=== PATIENT | male | born 1950 | race Caucasian/White ===

== ENCOUNTER → 2017-11-01 | Outpatient (CLI) | payer MEDICARE, OTHER ==
--- NOTE | 2017-11-02 07:52 | XR ---
Lumbosacral spine HISTORY: Low back pain 5 views of the lumbosacral spine No comparison There is multilevel spondylosis. Lumbar vertebral bodies show preserved height and alignment, there i s no evident paraspinal mass. There is loss of disc height at the intervertebral levels. Anterolisthe sis grade 1 present L5-S1. Sclerosis present in the posterior elements of the lumbar spine compatible with facet arthropathy. Suspect spondylolysis at L5. Atherosclerotic vascular calcifications present within the aortoiliac distribution. IMPRESSION: Degenerative disc disease and facet arthropathy. Spondylolysis and spondylolisthesis L5-S 1. Lumbar MRI may be of benefit.
== END | disposition home or self-care (01) ==
LOC: RADXRMAIN 13:51
PROVIDERS: ATTEND Nurse Practitioner Family
DX: M51.37 Other intervertebral disc degeneration, lumbosacral region (principal); M46.87 Other specified inflammatory spondylopathies, lumbosacral region; M43.17 Spondylolisthesis, lumbosacral region; M47.817 Spondylosis without myelopathy or radiculopathy, lumbosacral region; M54.41 Lumbago with sciatica, right side
CPT/HCPCS: 72110

== ENCOUNTER 2019-03-13 07:33 | Day surgery (SDC) | payer MEDICARE, OTHER ==
[2019-03-11 08:57] VITALS: BMI 29.1
[~2019-03-13 07:33] MED LIST: LACTATED RINGERS 1,000 ML IV SCH; LIDOCAINE 1% 20 ML VIAL (10MG/ML) FOR IV START INTRADERMA PRN; MOXIFLOXACIN HCL 0.5% DROPS 3 ML BTL OP ONE; ONDANSETRON 4 MG/2 ML VIAL IVP PRN; TETRACAINE 0.5% OPHTH (PF) DROPS 4 ML BTL OP ONE; TIMOLOL 0.5% OPHTH DROPS 5 ML BTL OP ONE
[2019-03-13] MEDS: CYCLOPENTOLATE 1% OPHTH SOLN 2 ML BTL OP ONE ×3 (08:19→08:33)
[2019-03-13] MEDS: PHENYLEPHRINE 2.5% OPHTH DRP 2ML OP NR ×3 (08:22→08:36)
[2019-03-13 08:23] VITALS: TEMP 97
[2019-03-13 08:46] LABS: Glucose,Whole Blood 125 mg/dL (75-99)
[2019-03-13] MEDS ORDERED: MIDAZOLAM 2 MG/2 ML VIAL ONE (09:07)
[2019-03-13] MEDS ORDERED: fentaNYL (PF) 50 MCG/ML 2 ML AMP ONE (09:07)
[2019-03-13] MEDS ORDERED: LIDOCAINE 1% (PF) 10MG/ML VIAL SQ ONE (09:08)
[2019-03-13] MEDS ORDERED: HYALURONATE SODIUM INTRAOCULAR 1 EACH SYRINGE (12MG/ML) INTRAOCULA ONE (09:08)
[2019-03-13] MEDS ORDERED: BALANCED SALT IRRIG SOLN COMB2 15 ML IRRIG.SOLN IRRIGATION ONE (09:08)
[2019-03-13] MEDS ORDERED: EPINEPHrine (PF) 0.3 ML in BALANCED SALT IRRIG SOLN COMB2 500 ML IRRIGATION ONE (09:15)
--- NOTE | 2019-03-13 09:30 | P.OP ---
Date of Procedure: 03/13/19 Preoperative Diagnosis: NS & CS & PSC Postoperative Diagnosis: same Procedure(s) Performed: PIOL, OD Implants: PCB00 17.00 Anesthesia: MAC Surgeon: Ronald Pizano Estimated Blood Loss (ml): 0 Pathology: none sent Condition: stable Disposition: same day Indications for Procedure: blurry vision Operative Findings: no complications
[2019-03-13 10:04] VITALS: BP 134/84; PULSE 52; RESP 14
--- NOTE | 2019-03-13 23:22 | OP ---
OPERATIVE REPORT DATE OF SURGERY: 03/13/2019. PROCEDURE: Phacoemulsification of cataract and intraocular lens implant of the right eye. PREOPERATIVE DIAGNOSIS: Nuclear sclerosis, cortical sclerosis, posterior subcapsular cataract. ESTIMATED BLOOD LOSS: Zero. SPECIMEN TAKEN: None. NARRATIVE: After obtaining the appropriate consent, the patient was brought to the operating room, where the patient was placed under cardiac monitoring and prepped and draped in the usual sterile manner. At the 11 o'clock position a 15-degree super sharp blade was used to create a paracentesis followed by instillation of 1% Xylocaine MPF 50:50 mix with BSS into the anterior chamber. This was followed by Amvisc to stabilize the anterior chamber. At the 9 o'clock position a self-sealing corneal flap incision was created using a 2.8 mm jordyn keratome. A cystotome was used to initiate a continuous tear capsulorrhexis which was completed with the Utrata forceps. A Binkhorst cannula was used to hydrodissect the lens nucleus followed by hydrodelineation. Phacoemulsification of the lens was performed utilizing phaco chop in 20.03 seconds at 16% power. The remaining cortical material was removed using the irrigation aspiration mode followed by additional 1% Xylocaine MPF into the anterior chamber followed by viscoelastic to stabilize the capsular bag. An ALIN PCB00 17.0 diopters posterior chamber lens was placed into the capsular bag without difficulty. The remaining viscoelastic material was removed from the anterior chamber with the irrigation/aspiration. Balanced salt solution was used to normalize the intraocular pressure. The incision was checked for watertight integrity. The patient then received two drops of 0.5% timolol followed by two drops Vigamox, was lightly patched and shielded in the usual manner. There were no complications from the procedure. The patient tolerated the procedure well and was returned to recovery in good condition. MMODL / IJN: [id number] /
== END 2019-03-13 10:15 | disposition home or self-care (01) ==
LOC: OR 07:33
PROVIDERS: ATTEND Ophthalmology
DX: E11.36 Type 2 diabetes mellitus with diabetic cataract (principal); H25.813 Combined forms of age-related cataract, bilateral; E11.319 Type 2 diabetes mellitus with unspecified diabetic retinopathy without macular edema; H35.371 Puckering of macula, right eye; H35.341 Macular cyst, hole, or pseudohole, right eye; H52.13 Myopia, bilateral; I10 Essential (primary) hypertension; H91.90 Unspecified hearing loss, unspecified ear; Z98.890 Other specified postprocedural states; Z79.899 Other long term (current) drug therapy; Z79.84 Long term (current) use of oral hypoglycemic drugs; Z87.891 Personal history of nicotine dependence; Z97.3 Presence of spectacles and contact lenses; Z85.828 Personal history of other malignant neoplasm of skin; Z97.2 Presence of dental prosthetic device (complete) (partial)
CPT/HCPCS: 66984; C1780; J2250; J0171; J3010; J2001

== ENCOUNTER 2019-03-27 06:03 | Day surgery (SDC) | payer MEDICARE, OTHER ==
[2019-03-25 10:43] VITALS: BMI 29.1
[~2019-03-27 06:03] MED LIST changes: -ONDANSETRON 4 MG/2 ML VIAL IVP PRN
[2019-03-27 06:46] VITALS: RESP 16; TEMP 98.2
[2019-03-27] MEDS: PHENYLEPHRINE 2.5% OPHTH DRP 2ML OP NR ×3 (06:50→07:08)
[2019-03-27] MEDS: CYCLOPENTOLATE 1% OPHTH SOLN 2 ML BTL OP ONE ×3 (06:52→07:10)
[2019-03-27 07:05] LABS: Glucose,Whole Blood 123 mg/dL (75-99)
[2019-03-27] MEDS ORDERED: HYALURONATE SODIUM INTRAOCULAR 1 EACH SYRINGE (12MG/ML) INTRAOCULA ONE (07:24)
[2019-03-27] MEDS ORDERED: BALANCED SALT IRRIG SOLN COMB2 15 ML IRRIG.SOLN IRRIGATION ONE (07:24)
[2019-03-27] MEDS ORDERED: LIDOCAINE 1% (PF) 10MG/ML VIAL SQ ONE (07:24)
[2019-03-27] MEDS ORDERED: MIDAZOLAM 2 MG/2 ML VIAL ONE (07:33)
[2019-03-27] MEDS ORDERED: fentaNYL (PF) 50 MCG/ML 2 ML AMP ONE (07:33)
[2019-03-27] MEDS ORDERED: EPINEPHrine (PF) 0.3 ML in BALANCED SALT IRRIG SOLN COMB2 500 ML IRRIGATION ONE (07:40)
--- NOTE | 2019-03-27 07:59 | P.OP ---
Date of Procedure: 03/27/19 Preoperative Diagnosis: NS & CS & PSC Postoperative Diagnosis: same Procedure(s) Performed: PIOL, OS Implants: PCB00 15.50 Anesthesia: MAC Surgeon: Ronald Pizano Estimated Blood Loss (ml): 0 Pathology: none sent Condition: stable Disposition: same day Indications for Procedure: blurry vision Operative Findings: no complications
[2019-03-27 08:03] VITALS: BP 133/77; PULSE 59
--- NOTE | 2019-03-27 17:48 | OP ---
OPERATIVE REPORT DATE OF SURGERY: 03/27/2019 PREOPERATIVE DIAGNOSIS: Nuclear sclerosis, cortical sclerosis, posterior subcapsular cataract, left eye. POSTOPERATIVE DIAGNOSIS: Nuclear sclerosis, cortical sclerosis, posterior subcapsular cataract, left eye. OPERATION: Phacoemulsification of cataract and intraocular implant of the left eye. ESTIMATED BLOOD LOSS: Zero. SPECIMEN TAKEN: None. NARRATIVE: After obtaining the appropriate consent, the patient was brought to the operating room, where the patient was placed under cardiac monitoring and prepped and draped in the usual sterile manner. At the 5 o'clock position a 15-degree super sharp blade was used to create a paracentesis followed by instillation of 1% Xylocaine MPF 50:50 mix with BSS into the anterior chamber. This was followed by Amvisc to stabilize the anterior chamber. At the 3 o'clock position a self-sealing corneal flap incision was created using 2.8 mm jordyn keratome. A cystotome was used to initiate a continuous tear capsulorrhexis which was completed with the Utrata forceps. A Binkhorst cannula was used to hydrodissect the lens nucleus followed by hydrodelineation. Phacoemulsification of the lens was performed utilizing phaco chop in 10.72 seconds at 13% power. The remaining cortical material was removed using the irrigation aspiration mode followed by additional 1% Xylocaine MPF into the anterior chamber followed by viscoelastic to stabilize the capsular bag. A Pedro & Pedro KLQ4329.5 diopter posterior chamber lens was placed into the capsular bag without difficulty. The remaining viscoelastic material was removed from the anterior chamber with the irrigation/aspiration. Balanced salt solution was used to normalize the intraocular pressure. The incision was checked for watertight integrity. The patient then received two drops of 0.5% timolol followed by two drops Vigamox, was lightly patched and shielded in the usual manner. There were no complications from the procedure. The patient tolerated the procedure well and was returned to recovery in good condition. MMODL / IJN: [id number] /
== END 2019-03-27 08:31 | disposition home or self-care (01) ==
LOC: OR 06:03
PROVIDERS: ATTEND Ophthalmology
DX: H25.12 Age-related nuclear cataract, left eye (principal); H25.012 Cortical age-related cataract, left eye; H35.371 Puckering of macula, right eye; H35.341 Macular cyst, hole, or pseudohole, right eye; H52.13 Myopia, bilateral; H25.042 Posterior subcapsular polar age-related cataract, left eye; H91.90 Unspecified hearing loss, unspecified ear; I10 Essential (primary) hypertension; E11.9 Type 2 diabetes mellitus without complications; Z98.890 Other specified postprocedural states; Z79.84 Long term (current) use of oral hypoglycemic drugs; Z79.899 Other long term (current) drug therapy; Z87.891 Personal history of nicotine dependence; Z97.3 Presence of spectacles and contact lenses; Z96.1 Presence of intraocular lens; Z98.41 Cataract extraction status, right eye
CPT/HCPCS: 66984; C1780; J2250; J0171; J3010; J2001

== ENCOUNTER → 2020-11-13 | Outpatient (CLI) | payer MEDICARE ==
--- NOTE | 2020-11-16 04:03 | US ---
EXAMINATION TYPE: US carotid duplex BILAT DATE OF EXAM: 11/13/2020 COMPARISON: NONE CLINICAL HISTORY: 70-year-old male I65.21 Stenosis R carotid E78.00 Pure hypercholesteremia,. TECHNIQUE: Carotid duplex ultrasound examination. Indirect Doppler criteria was utilized. FINDINGS: EXAM MEASUREMENTS: RIGHT: Peak Systolic Velocity (PSV) cm/sec ----- Right CCA: 99.7 ----- Right ICA: 92.4 ----- Right ECA: 11.3 ICA/CCA ratio: 0.9 RIGHT: End Diastole cm/sec ----- Right CCA: 24.1 ----- Right ICA: 25.6 ----- Right ECA: 16.9 LEFT: Peak Systolic Velocity (PSV) cm/sec ----- Left CCA: 91.0 ----- Left ICA: 80.8 ----- Left ECA: 93.9 ICA/CCA ratio: 0.9 LEFT: End Diastole cm/sec ----- Left CCA: 27.0 ----- Left ICA: 18.3 ----- Left ECA: 0.9 VERTEBRALS (direction of flow): Right Vertebral: Antegrade Left Vertebral: Antegrade No significant stenosis seen IMPRESSION: No hemodynamically significant internal carotid artery stenosis on either side. Criteria for Assigning % of Stenosis / Diameter reduction (Estimation based on the indirect measurements of the internal carotid artery velocities (ICA PSV). 1. Normal (no stenosis)=ICA PSV < 125 cm/s: ratio < 2.0: ICA EDV<40 cm/s. 2. Less than 50% stenosis=ICA PSV < 125 cm/s: ratio < 2.0: ICA EDV<40 cm/s. 3. 50 to 69% stenosis=ICA PSV of 125 to 230 cm/s: ration 2.0 ? 4.0: ICA EDV 40-100 cm/s. 4. Greater than 70% stenosis to near occlusion= ICA PSV > 230 cm/s: ratio > 4.0: ICA EDV > 100 cm/s. 5. Near occlusion= ICA PSV velocities may be low or undetectable: variable ratio and ICA EDV. 6. Total occlusion=unable to detect flow.
== END | disposition home or self-care (01) ==
LOC: RADUSWWP 15:30
PROVIDERS: ATTEND Family Medicine
DX: I65.21 Occlusion and stenosis of right carotid artery (principal); E78.00 Pure hypercholesterolemia, unspecified; E11.9 Type 2 diabetes mellitus without complications; Z79.899 Other long term (current) drug therapy
CPT/HCPCS: 93880

== ENCOUNTER → 2022-03-23 | Outpatient (CLI) | payer MEDICARE ==
--- NOTE | 2022-03-23 08:40 | US ---
EXAMINATION TYPE: US duplex aorta DATE OF EXAM: 03/23/2022 COMPARISON: NONE CLINICAL HISTORY: Z13.6 ENCOUNTER FOR SCREENING FOR CARDIOVASCULAR D. TECHNIQUE: Multiple sonographic images of the abdominal aorta are obtained. FINDINGS: EXAM MEASUREMENTS: Abdominal Aorta: Proximal: 2.7 x 2.8cm Mid: 1.9 x 2.1cm Distal: 1.8 x 1.7cm Right Iliac: 1.0 x 1.2cm Left Iliac: 1.0 x 1.1cm Ectatic proximal aorta. Mild atherosclerotic calcification of the aorta. IMPRESSION: Ectasia of the proximal abdominal aorta measuring up to 2.8 cm. No abdominal aortic aneurysm.
== END | disposition home or self-care (01) ==
LOC: RADUSWWP 08:10
PROVIDERS: ATTEND Family Medicine
DX: Z13.6 Encounter for screening for cardiovascular disorders (principal); I77.811 Abdominal aortic ectasia
CPT/HCPCS: 93979

== ENCOUNTER 2023-03-15 11:53 | Inpatient (IN) | payer MEDICARE ==
[2023-03-15] MEDS ORDERED: SODIUM CHLORIDE 0.9% 500 ML 500 ML IV SCH (12:30)
--- NOTE | 2023-03-15 12:41 | ED ---
General Adult HPI - General Chief complaint: Recheck/Abnormal Lab/Rx Stated complaint: abn EKG Time Seen by Provider: 03/15/23 12:00 Source: patient, RN notes reviewed, old records reviewed Mode of arrival: ambulatory - History of Present Illness Initial comments: This is a 72-year-old male with a past medical history significant for high cholesterol high blood pressure and diabetes. Patient went in for his regular physical and was found to have heart rate dipping into the 30s in though he remains asymptomatic patient to the emergency department. Patient denies chest pain patient denies difficulty breathing shortness of breath per patient denies any recent fever chills or cough per patient denies any abdominal pain patient denies nausea vomiting diarrhea per patient denies any lightheadedness dizziness or near syncopal episode. Patient does any numbness or weakness. Patient states he has not felt that all tired and fatigued. - Related Data Home Medications Medication Instructions Recorded Confirmed Glucos Sul 2Kcl/MSM/Chond/C/Mn 1 each PO BID 03/11/19 03/27/19 [Glucosamine Chondroitin Cap] Losartan [Cozaar] 50 mg PO DAILY 03/11/19 03/27/19 Magnesium Oxide [Mag-Ox] 250 mg PO DAILY 03/11/19 03/27/19 Niacin [Niaspan] 500 mg PO DAILY 03/11/19 03/27/19 [place]-3 Fatty Acids [[place]-3] 1,000 mg PO DAILY 03/11/19 03/27/19 Sildenafil Citrate [Viagra] 50 mg PO ONCE PRN 03/11/19 03/27/19 Simvastatin [Zocor] 40 mg PO HS 03/11/19 03/27/19 metFORMIN HCL [Glucophage] 500 mg PO BID 03/11/19 03/27/19 Allergies Allergy/AdvReac Type Severity Reaction Status Date / Time No Known Allergies Allergy Verified 03/15/23 12:16 Review of Systems ROS Statement: Those systems with pertinent positive or pertinent negative responses have been documented in the HPI. ROS Other: All systems not noted in ROS Statement are negative. Past Medical History Past Medical History: Cancer, Diabetes Mellitus, Eye Disorder, Hypertension, Osteoarthritis (OA) Additional Past Medical History / Comment(s): hx. skin cancer, cataracts History of Any Multi-Drug Resistant Organisms: None Reported Past Surgical History: Hernia Repair, Orthopedic Surgery Additional Past Surgical History / Comment(s): knee surg. as a teen, arthroscopy right knee, retinal surg., rt cataract Past Anesthesia/Blood Transfusion Reactions: No Reported Reaction Past Psychological History: No Psychological Hx Reported Smoking Status: Former smoker Past Alcohol Use History: Occasional Past Drug Use History: None Reported - Past Family History Mother Family Medical History: No Reported History General Exam - General Exam Comments Initial Comments: GENERAL: Patient is well-developed and well-nourished. Patient is nontoxic and well- hydrated and is in no acute distress. ENT: Neck is soft and supple. No significant lymphadenopathy is noted. Oropharynx is clear. Moist mucous membranes. Neck has full range of motion without eliciting any pain. EYES: The sclera were anicteric and conjunctiva were pink and moist. Extraocular movements were intact and pupils were equal round and reactive to light. Eyelids were unremarkable. PULMONARY: Unlabored respirations. Good breath sounds bilaterally. No audible rales rhonchi or wheezing was noted. CARDIOVASCULAR: Patient is bradycardic at heart rate of 40 beats a minute ABDOMEN: Soft and nontender with normal bowel sounds. SKIN: Skin is clear with no lesions or rashes and otherwise unremarkable. NEUROLOGIC: Patient is alert and oriented x3. Cranial nerves II through XII are grossly intact. Motor and sensory are also intact. Normal speech, volume and content. Symmetrical smile. MUSCULOSKELETAL: Normal extremities with adequate strength and full range of motion. No lower extremity swelling or edema. No calf tenderness. LYMPHATICS: No significant lymphadenopathy is noted PSYCHIATRIC: Normal psychiatric evaluation. Course Vital Signs 03/15/23 12:12 Temperature 98 F Pulse Rate 40 L Respiratory 18 Rate Blood Pressure 189/81 O2 Sat by Pulse 98 Oximetry Medical Decision Making - Medical Decision Making EKG as interpreted by myself. EKG shows a sinus bradycardia at 38 bpm RI interval is 283 QRS is 106 QT intervals 45 QTC is 45 per patient's EKG shows no ST segment elevation or depression. Was pt. sent in by a medical professional or institution (, [facility], [facility], urgent care, hospital, or snf...) When possible be specific @ -Primary medical care doctor sent the patient Did you speak to anyone other than the patient for history (EMS, parent, family, police, friend...)? What history was obtained from this source @ -No Did you review nursing and triage notes (agree or disagree)? Why? @ -I reviewed and agree with nursing and triage notes Were old charts reviewed (outside hosp., previous admission, EMS record, old EKG, old radiological studies, urgent care reports/EKG's, snf records)? Report findings @ -I reviewed prior lab work in prior charts Differential Diagnosis (chest pain, altered mental status, abdominal pain women, abdominal pain men, vaginal bleeding, weakness, fever, dyspnea, syncope, headache, dizziness, GI bleed, back pain, seizure, CVA, palpatations, mental health, musculoskeletal)? @ -Differential Palpitations Ventricular arrhythmias, atrial arrhythmias, myocardial infarction, anemia, thyrotoxicosis, electrolyte imbalance, hypokalemia, pulmonary embolism, pulmonary disease, drugs, alcohol, anxiety, stress.... This is not meant to be an all-inclusive list. EKG interpreted by me (3pts min.). @ -As above X-rays interpreted by me (1pt min.). @ -Chest x-ray shows no acute abnormality CT interpreted by me (1pt min.). @ -None done U/S interpreted by me (1pt. min.). @ -None done What testing was considered but not performed or refused? (CT, X-rays, U/S, labs)? Why? @ -None What meds were considered but not given or refused? Why? @ -None Did you discuss the management of the patient with other professionals (professionals i.e. , PA, [facility], lab, RT, psych nurse, social sciences professor, product marketing specialist, teacher, ground intelligence officer, classification case manager)? Give summary @ -I spoke with progression he accepted the admission Was smoking cessation discussed for >3mins.? @ -No Was critical care preformed (if so, how long)? @ -No Were there social determinants of health that impacted care today? How? (Homelessness, low income, unemployed, alcoholism, drug addiction, transportation, low edu. Level, literacy, decrease access to med. care, [facility], rehab)? @ -No Was there de-escalation of care discussed even if they declined (Discuss DNR or withdrawal of care, Hospice)? DNR status @ -No What co-morbidities impacted this encounter? (DM, HTN, Smoking, COPD, CAD, Cancer, CVA, ARF, Chemo, Hep., AIDS, mental health diagnosis, sleep apnea, morbid obesity)? @ -None Was patient admitted / discharged? Hospital course, mention meds given and route, prescriptions, significant lab abnormalities, going to OR and other pertinent info. @ -Bradycardia on EKG. Patient's lab work came back within normal range patient remained asymptomatic. I spoke with Dr. Garcia agreed to admit the patient I will write admitting orders and consult cardiology Undiagnosed new problem with uncertain prognosis? @ -No Drug Therapy requiring intensive monitoring for toxicity (Heparin, Nitro, Insulin, Cardizem)? @ -No Were any procedures done? @ -No Diagnosis/symptom? @ -Sinus bradycardia Acute, or Chronic, or Acute on Chronic? @ -Acute Uncomplicated (without systemic symptoms) or Complicated (systemic symptoms)? @ -Complicated Side effects of treatment? @ -No Exacerbation, Progression, or Severe Exacerbation? @ -No Poses a threat to life or bodily function? How? (Chest pain, [place], AR, pneumonia, PE, COPD, DKA, ARF, appy, cholecystitis, CVA, Diverticulitis, Homicidal, Suicidal, threat to staff... and all critical care pts) @ -Yes this could lead to poor perfusion and and organ dysfunction - Lab Data Result diagrams: 03/15/23 12:45 03/15/23 12:45 Lab Results 03/15/23 03/15/23 03/15/23 Range/Units 12:45 12:45 12:45 WBC 8.3 (3.8-10.6) k/uL RBC 5.53 (4.30-5.90) m/uL Hgb 16.3 (13.0-17.5) gm/dL Hct 49.9 (39.0-53.0) % MCV 90.3 (80.0-100.0) fL MCH 29.5 (25.0-35.0) pg MCHC 32.6 (31.0-37.0) g/dL RDW 13.2 (11.5-15.5) % Plt Count 240 (150-450) k/uL MPV 8.2 Neutrophils % 63 % Lymphocytes % 27 % Monocytes % 6 % Eosinophils % 2 % Basophils % 1 % Neutrophils # 5.2 (1.3-7.7) k/uL Lymphocytes # 2.3 (1.0-4.8) k/uL Monocytes # 0.5 (0-1.0) k/uL Eosinophils # 0.1 (0-0.7) k/uL Basophils # 0.1 (0-0.2) k/uL PT 9.5 (9.0-12.0) sec INR 0.9 (<1.2) APTT 22.3 (22.0-30.0) sec Sodium (137-145) mmol/L Potassium (3.5-5.1) mmol/L Chloride (98-107) mmol/L Carbon Dioxide (22-30) mmol/L Anion Gap mmol/L BUN (9-20) mg/dL Creatinine (0.66-1.25) mg/dL Est GFR (CKD-EPI)AfAm (>60 ml/min/1.73 sqM) Est GFR (CKD-EPI)NonAf (>60 ml/min/1.73 sqM) Glucose (74-99) mg/dL Calcium (8.4-10.2) mg/dL Magnesium (1.6-2.3) mg/dL Total Bilirubin (0.2-1.3) mg/dL AST (17-59) U/L ALT (4-49) U/L Alkaline Phosphatase (38-126) U/L Troponin I (0.000-0.034) ng/mL Total Protein (6.3-8.2) g/dL Albumin (3.5-5.0) g/dL TSH (0.465-4.680) mIU/L Coronavirus (PCR) Not Detected (Not Detectd) 03/15/23 03/15/23 Range/Units 12:45 12:45 WBC (3.8-10.6) k/uL RBC (4.30-5.90) m/uL Hgb (13.0-17.5) gm/dL Hct (39.0-53.0) % MCV (80.0-100.0) fL MCH (25.0-35.0) pg MCHC (31.0-37.0) g/dL RDW (11.5-15.5) % Plt Count (150-450) k/uL MPV Neutrophils % % Lymphocytes % % Monocytes % % Eosinophils % % Basophils % % Neutrophils # (1.3-7.7) k/uL Lymphocytes # (1.0-4.8) k/uL Monocytes # (0-1.0) k/uL Eosinophils # (0-0.7) k/uL Basophils # (0-0.2) k/uL PT (9.0-12.0) sec INR (<1.2) APTT (22.0-30.0) sec Sodium 139 (137-145) mmol/L Potassium 4.8 (3.5-5.1) mmol/L Chloride 103 (98-107) mmol/L Carbon Dioxide 25 (22-30) mmol/L Anion Gap 11 mmol/L BUN 15 (9-20) mg/dL Creatinine 1.06 (0.66-1.25) mg/dL Est GFR (CKD-EPI)AfAm 80 (>60 ml/min/1.73 sqM) Est GFR (CKD-EPI)NonAf 69 (>60 ml/min/1.73 sqM) Glucose 115 H (74-99) mg/dL Calcium 9.5 (8.4-10.2) mg/dL Magnesium 1.9 (1.6-2.3) mg/dL Total Bilirubin 0.6 (0.2-1.3) mg/dL AST 31 (17-59) U/L ALT 30 (4-49) U/L Alkaline Phosphatase 77 (38-126) U/L Troponin I 0.012 (0.000-0.034) ng/mL Total Protein 7.1 (6.3-8.2) g/dL Albumin 4.3 (3.5-5.0) g/dL TSH 1.730 (0.465-4.680) mIU/L Coronavirus (PCR) (Not Detectd) Disposition Clinical Impression: Sinus bradycardia Disposition: ADMITTED IP TO THIS [facility] Time of Disposition: 13:58
[2023-03-15 13:08] LABS: Basophils # (A) 0.1 k/uL (0-0.2); Basophils % (A) 1 %; Eosinophils # (A) 0.1 k/uL (0-0.7); Eosinophils % (A) 2 %; HCT 49.9 % (39.0-53.0); HGB 16.3 gm/dL (13.0-17.5); Lymphocytes # (A) 2.3 k/uL (1.0-4.8); Lymphocytes % (A) 27 %; MCH 29.5 pg (25.0-35.0); MCHC 32.6 g/dL (31.0-37.0); MCV 90.3 fL (80.0-100.0); Mean Platelet Volume 8.2; Monocytes # (A) 0.5 k/uL (0-1.0); Monocytes % (A) 6 %; Neutrophils # (A) 5.2 k/uL (1.3-7.7); Neutrophils % (A) 63 %; Platelet Count 240 k/uL (150-450); RBC 5.53 m/uL (4.30-5.90); RDW 13.2 % (11.5-15.5); WBC 8.3 k/uL (3.8-10.6)
[2023-03-15 13:14] LABS: ALT 30 U/L (4-49); AST 31 U/L (17-59); African American GFR (CKD) 80 (>60 ml/min/1.73 sqM); Albumin 4.3 g/dL (3.5-5.0); Alkaline Phosphatase 77 U/L (38-126); Anion Gap 11 mmol/L; Blood Urea Nitrogen 15 mg/dL (9-20); Calcium 9.5 mg/dL (8.4-10.2); Carbon Dioxide 25 mmol/L (22-30); Chloride 103 mmol/L (98-107); Glucose 115 mg/dL (74-99); Magnesium 1.9 mg/dL (1.6-2.3); Non-African American GFR(CKD) 69 (>60 ml/min/1.73 sqM); Potassium 4.8 mmol/L (3.5-5.1); Sodium 139 mmol/L (137-145); Total Bilirubin 0.6 mg/dL (0.2-1.3); Total Protein 7.1 g/dL (6.3-8.2)
--- NOTE | 2023-03-15 13:25 | XR ---
EXAMINATION TYPE: XR chest 2V DATE OF EXAM: 03/15/2023 COMPARISON: NONE TECHNIQUE: PA and lateral views submitted. HISTORY: Dysrhythmia FINDINGS: The lungs are clear and there is no pneumothorax, pleural effusion, or focal pneumonia. Heart size normal and no overt failure. Osseous structures demonstrate hypertrophic and degenerative changes of the spine. A tiny granuloma left upper lobe suspected. Diffuse osteopenia with arthropathy of the miriam ulders. Correlate for diffuse idiopathic skeletal hyperostosis. IMPRESSION: 1. No acute process.
[2023-03-15 13:36] LABS: INR 0.9 (<1.2); Partial Thromboplastin Time 22.3 sec (22.0-30.0); Prothrombin Time 9.5 sec (9.0-12.0)
[2023-03-15] MEDS ORDERED: NITROGLYCERIN SL TABS 0.4 MG TAB SUBLINGUAL PRN (13:58)
[2023-03-15] MEDS ORDERED: DEXTROSE 50% SYRINGE 50 ML IVP PRN ×2 (16:38)
[2023-03-15 17:02] LABS: Glucose,Whole Blood 108 mg/dL (70-110)
[2023-03-15] MEDS: INSULIN ASPART (NovoLOG) 100 UNIT/ML VIAL SQ SCH (17:15)
--- NOTE | 2023-03-15 17:52 | P.CRDCN ---
History of Present Illness Consult date: 03/15/23 History of present illness: HISTORY OF PRESENTING ILLNESS 72-year-old with past medical history of type 2 diabetes, essential hypertension, dyslipidemia. He was being evaluated at his primary care physician's office as a routine appointment when he was noticed to have his heart rate running in the low 30s. For this he was asked to come to the hospital. On evaluating him at bedside, patient denies having any symptoms of chest pain chest pressure or shortness of breath. He denies any symptoms of reduction is excess capacity or any symptoms of lightheadedness or dizziness. He denies any symptoms of near syncope or had any syncopal episodes. DIAGNOSTICS EKG reveals sinus bradycardia with Mobitz type I second degree AV block. Chest xray: No significant acute cardiopulmonary process going on Laboratory reviewed, hemoglobin 16.3, BUN 15, creatinine 1.06, troponin 2 negative Home cardiac medications include atorvastatin and losartan. REVIEW OF SYSTEMS 14 point review of system is negative except what is mentioned above in HPI. PHYSICAL EXAMINATION Vital signs reviewed. Head: Normocephalic. Eyes: Sclerae nonicteric. Neck: Brisk carotid upstroke, no jugular venous distention. Lungs: Clear to auscultation. Heart: irregular rhythm, S1-S2, no S3, no murmur or rub. Abdomen: Soft nontender, positive bowel sounds no organomegaly. Extremities: No edema, intact distal pulses. ASSESSMENT Mobitz type I second-degree AV block, asymptomatic Essential hypertension, poorly controlled Dyslipidemia Obesity Type 2 diabetes PLAN On ECG and telemetry reviewed it is appendectomy patient is an Mobitz type I b lock and he has been asymptomatic. He would benefit from getting chronotropic competence evaluation and to see if with exercises AV block results. He would also benefit from better blood pressure control, Start amlodipine 5 mg. Continue losartan 50, aspirin and atorvastatin Obtain an echocardiogram Obtain treadmill stress echo Past Medical History Past Medical History: Cancer, Diabetes Mellitus, Eye Disorder, Hypertension, Osteoarthritis (OA) Additional Past Medical History / Comment(s): hx. skin cancer, cataracts History of Any Multi-Drug Resistant Organisms: None Reported Past Surgical History: Hernia Repair, Orthopedic Surgery Additional Past Surgical History / Comment(s): knee surg. as a teen, arthroscopy right knee, retinal surg., rt cataract Past Anesthesia/Blood Transfusion Reactions: No Reported Reaction Past Psychological History: No Psychological Hx Reported Smoking Status: Former smoker Past Alcohol Use History: Occasional Past Drug Use History: None Reported - Past Family History Mother Family Medical History: No Reported History Medications and Allergies Home Medications Medication Instructions Recorded Confirmed Type Glucos Sul 2Kcl/MSM/Chond/C/Mn 1 cap PO BID 03/11/19 03/15/23 History [Glucosamine Chondroitin Cap] Losartan [Cozaar] 50 mg PO HS 03/11/19 03/15/23 History [place]-3 Fatty Acids [[place]-3] 1,000 mg PO DAILY 03/11/19 03/15/23 History Simvastatin [Zocor] 40 mg PO HS 03/11/19 03/15/23 History Berberine 600 mg PO DAILY 03/15/23 03/15/23 History Magnesium Citrate Gummies 600 mg PO HS 03/15/23 03/15/23 History Multivit-Mins/Iron/Folic/Lycop 1 tab PO DAILY 03/15/23 03/15/23 History [Centrum Men's Tablet] Senior Probiotic 1 tab PO HS 03/15/23 03/15/23 History Sildenafil Citrate [Viagra] 100 mg PO DAILY PRN 03/15/23 03/15/23 History metFORMIN HCL ER [Glucophage XR] 500 mg PO HS 03/15/23 03/15/23 History Allergies Allergy/AdvReac Type Severity Reaction Status Date / Time No Known Allergies Allergy Verified 03/15/23 14:30 Physical Exam Vitals: Vital Signs Temp Pulse Resp BP Pulse Ox 03/15/23 12:12 98 F 40 L 18 189/81 98 Intake and Output 03/15/23 03/15/23 03/15/23 06:59 14:59 22:59 Other: Weight 107.048 kg Results 03/15/23 12:45 03/15/23 12:45 Cardiac Enzymes 03/15/23 03/15/23 03/15/23 Range/Units 12:45 12:45 14:34 AST 31 (17-59) U/L Troponin I 0.012 0.014 (0.000-0.034) ng/mL Coagulation 03/15/23 Range/Units 12:45 PT 9.5 (9.0-12.0) sec APTT 22.3 (22.0-30.0) sec CBC 03/15/23 Range/Units 12:45 WBC 8.3 (3.8-10.6) k/uL RBC 5.53 (4.30-5.90) m/uL Hgb 16.3 (13.0-17.5) gm/dL Hct 49.9 (39.0-53.0) % Plt Count 240 (150-450) k/uL Comprehensive Metabolic Panel 03/15/23 Range/Units 12:45 Sodium 139 (137-145) mmol/L Potassium 4.8 (3.5-5.1) mmol/L Chloride 103 (98-107) mmol/L Carbon Dioxide 25 (22-30) mmol/L BUN 15 (9-20) mg/dL Creatinine 1.06 (0.66-1.25) mg/dL Glucose 115 H (74-99) mg/dL Calcium 9.5 (8.4-10.2) mg/dL AST 31 (17-59) U/L ALT 30 (4-49) U/L Alkaline Phosphatase 77 (38-126) U/L Total Protein 7.1 (6.3-8.2) g/dL Albumin 4.3 (3.5-5.0) g/dL Current Medications Generic Name Dose Route Start Last Admin Trade Name Freq PRN Reason Stop Dose Admin Amlodipine Besylate 5 mg 03/15/23 17:45 Amlodipine 5 Mg Tab PO DAILY [facility] Aspirin 81 mg 03/16/23 09:00 Aspirin 81 Mg PO DAILY [facility] Atorvastatin Calcium 20 mg 03/15/23 21:00 Atorvastatin 20 Mg Tab PO HS [facility] Dextrose/Water 25 ml 03/15/23 16:38 Dextrose 50% Syringe 50 Ml IVP PER PROTOCOL PRN Hypoglycemia Protocol Dextrose/Water 50 ml 03/15/23 16:38 Dextrose 50% Syringe 50 Ml IVP PER PROTOCOL PRN Hypoglycemia Protocol Insulin Aspart 0 unit 03/15/23 17:30 03/15/23 17:15 Insulin Aspart (Novolog) 100 Unit/Ml Vial SQ Not Given AC-TID [facility] Protocol Losartan Potassium 50 mg 03/15/23 21:00 Losartan 50 Mg Tab PO HS [facility] Metformin HCl 250 mg 03/15/23 21:00 Metformin 500 Mg Tab PO BID [facility] Multivitamins 1 each 03/16/23 09:00 Multivitamins, Thera 1 Each Tab PO DAILY [facility] Nitroglycerin 0.4 mg 03/15/23 13:58 Nitroglycerin Sl Tabs 0.4 Mg Tab SUBLINGUAL Q5M PRN Chest Pain Intake and Output 03/15/23 03/15/23 03/15/23 06:59 14:59 22:59 Other: Weight 107.048 kg Patient Weight 03/16/23 06:59 Weight 107.048 kg 03/15/23 12:45 03/15/23 12:45
--- NOTE | 2023-03-15 18:18 | P.HPIM ---
History of Present Illness H&P Date: 03/15/23 Chief Complaint: Low heart rate This is a pleasant 72-year-old patient who follows with Dr. Trejo. Chronic stable medical conditions include diabetes mellitus type 2, hypertension, skin cancer. That was removed. Patient went for his regular physical checkup. He was discovered to have a low heart rate. Sent in to the ER. Found a variable block. Patient denies any chest pain palpitation dizziness lightheadedness shortness of breath or tiredness. Cardiology consulted. Review of systems: GEN.: None EYES: None HEENT: None NECK: None RESPIRATORY: None CARDIOVASCULAR: None GASTROINTESTINAL: None GENITOURINARY: None MUSCULOSKELETAL: None LYMPHATICS: None HEMATOLOGICAL: None PSYCHIATRY: None NEUROLOGICAL: None Social history: Patient smoked one pack or weak for about 20 years stopped about 35 years ago. 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 . Physical examination: VITAL SIGNS: 98, 14, 18, 180/81, 98% room air GENERAL: BMI 32, declining a bit of a comfortable. EYES: Pupils equal. Conjunctiva normal. HEENT: External appearance of nose and ears normal, oral cavity grossly normal. NECK: JVD not raised; masses not palpable. HEART: First and second heart sounds are normal; no edema. LUNGS: Respiratory rate normal; clear to auscultation. ABDOMEN: Soft, nontender, liver spleen not palpable, no masses palpable. PSYCH: Alert and oriented x3; mood and affect normal. MUSCULOSKELETAL:No Clubbing/cyanosis;muscles-grossly intact NEUROLOGICAL: Cranial nerves grossly intact; no facial asymmetry, power and sensation grossly intact. LYMPHATICS: No lymph nodes palpable in the axilla and neck INVESTIGATIONS, reviewed in the clinical context: White count 8.3 hemoglobin 16.3 platelets 240 sodium 139 potassium 4.8 creatinine 1.06 Troponin I 0.012, 0.014 TSH 1.7 EKG tracing personally reviewed by [id number] AV block. Chest x-ray film personally reviewed by me-borderline cardiomegaly Assessment and plan: -Essential hypertension, uncontrolled Amlodipine 5 mg added. Continue losartan. -Second-degree AV block, asymptomatic Stress test in the morning. -Diabetes mellitus type 2 on oral hypoglycemic Glucophage XL. Follow Accu-Cheks and sliding scale -Hyperlipidemia Zocor 40 mg daily at bedtime Care was discussed the patient and . Question also. Stress test tomorrow morning per cardiology. Past Medical History Past Medical History: Cancer, Diabetes Mellitus, Eye Disorder, Hypertension, Osteoarthritis (OA) Additional Past Medical History / Comment(s): hx. skin cancer, cataracts History of Any Multi-Drug Resistant Organisms: None Reported Past Surgical History: Hernia Repair, Orthopedic Surgery Additional Past Surgical History / Comment(s): knee surg. as a teen, arthroscopy right knee, retinal surg., rt cataract Past Anesthesia/Blood Transfusion Reactions: No Reported Reaction Past Psychological History: No Psychological Hx Reported Smoking Status: Former smoker Past Alcohol Use History: Occasional Past Drug Use History: None Reported - Past Family History Mother Family Medical History: No Reported History Medications and Allergies Home Medications Medication Instructions Recorded Confirmed Type Glucos Sul 2Kcl/MSM/Chond/C/Mn 1 cap PO BID 03/11/19 03/15/23 History [Glucosamine Chondroitin Cap] Losartan [Cozaar] 50 mg PO HS 03/11/19 03/15/23 History [place]-3 Fatty Acids [[place]-3] 1,000 mg PO DAILY 03/11/19 03/15/23 History Simvastatin [Zocor] 40 mg PO HS 03/11/19 03/15/23 History Berberine 600 mg PO DAILY 03/15/23 03/15/23 History Magnesium Citrate Gummies 600 mg PO HS 03/15/23 03/15/23 History Multivit-Mins/Iron/Folic/Lycop 1 tab PO DAILY 03/15/23 03/15/23 History [Centrum Men's Tablet] Senior Probiotic 1 tab PO HS 03/15/23 03/15/23 History Sildenafil Citrate [Viagra] 100 mg PO DAILY PRN 03/15/23 03/15/23 History metFORMIN HCL ER [Glucophage XR] 500 mg PO HS 03/15/23 03/15/23 History Allergies Allergy/AdvReac Type Severity Reaction Status Date / Time No Known Allergies Allergy Verified 03/15/23 14:30 Physical Exam Vitals: Vital Signs Temp Pulse Resp BP Pulse Ox 03/15/23 12:12 98 F 40 L 18 189/81 98 Intake and Output 03/15/23 03/15/23 03/15/23 06:59 14:59 22:59 Other: Weight 107.048 kg Results CBC & Chem 7: 03/15/23 12:45 03/15/23 12:45 Labs: Abnormal Lab Results - Last 24 Hours (Table) 03/15/23 Range/Units 12:45 Glucose 115 H (74-99) mg/dL
[2023-03-15] MEDS: amLODIPine 5 MG TAB PO SCH (18:39)
[2023-03-15] MEDS: LOSARTAN 50 MG TAB PO SCH (20:44)
[2023-03-15] MEDS: ATORVASTATIN 20 MG TAB PO SCH (20:44)
[2023-03-15] MEDS: metFORMIN 500 MG TAB PO SCH (20:44)
--- NOTE | 2023-03-16 07:35 | P.PN ---
Subjective Progress Note Date: 03/16/23 HISTORY OF PRESENTING ILLNESS 72-year-old with past medical history of type 2 diabetes, essential hypertension, dyslipidemia. He was being evaluated at his primary care physician's office as a routine appointment when he was noticed to have his heart rate running in the low 30s. For this he was asked to come to the hospital. On evaluating him at bedside, patient denies having any symptoms of chest pain chest pressure or shortness of breath. He denies any symptoms of reduction is excess capacity or any symptoms of lightheadedness or dizziness. He denies any symptoms of near syncope or had any syncopal episodes. DIAGNOSTICS EKG reveals sinus bradycardia with Mobitz type I second degree AV block. Chest xray: No significant acute cardiopulmonary process going on Laboratory reviewed, hemoglobin 16.3, BUN 15, creatinine 1.06, troponin 2 nega tive Home cardiac medications include atorvastatin and losartan. Progress note 03/16/2023 Seen and examined at bedside the same. Denies any cardiac symptoms. Overnight continues to be in sinus rhythm. Telemetry shows Mobitz type I Wenckebach phenomena. PHYSICAL EXAMINATION Vital signs reviewed. Head: Normocephalic. Eyes: Sclerae nonicteric. Neck: Brisk carotid upstroke, no jugular venous distention. Lungs: Clear to auscultation. Heart: irregular rhythm, S1-S2, no S3, no murmur or rub. Abdomen: Soft nontender, positive bowel sounds no organomegaly. Extremities: No edema, intact distal pulses. ASSESSMENT Mobitz type I second-degree AV block, asymptomatic Essential hypertension, poorly controlled Dyslipidemia Obesity Type 2 diabetes PLAN On ECG and telemetry reviewed it is appendectomy patient is an Mobitz type I block and he has been asymptomatic. He would benefit from getting chronotropic competence evaluation and to see if with exercises AV block results. He would also benefit from better blood pressure control, Start amlodipine 5 mg. Continue losartan 50, aspirin and atorvastatin Obtain an echocardiogram Obtain treadmill stress echo Objective - Vital Signs Vital signs: Vital Signs Temp 98.1 F 03/16/23 05:59 Pulse 42 L 03/16/23 05:59 Resp 16 03/16/23 05:59 BP 159/88 03/16/23 05:59 Pulse Ox 95 03/16/23 05:59 FiO2 Intake & Output 03/15/23 03/16/23 03/16/23 18:59 06:59 18:59 Weight 107.048 kg - Labs CBC & Chem 7: 03/15/23 12:45 03/15/23 12:45 Labs: Abnormal Lab Results - Last 24 Hours (Table) 03/15/23 Range/Units 12:45 Glucose 115 H (74-99) mg/dL
[2023-03-16 08:20] LABS: Glucose,Whole Blood 131 mg/dL (70-110)
[2023-03-16] MEDS: INSULIN ASPART (NovoLOG) 100 UNIT/ML VIAL SQ SCH ×3 (08:20→16:55)
[2023-03-16] MEDS: ASPIRIN 81 MG PO SCH (08:40)
[2023-03-16] MEDS: amLODIPine 5 MG TAB PO SCH (08:41)
[2023-03-16] MEDS: metFORMIN 500 MG TAB PO SCH ×2 (08:41→20:25)
[2023-03-16] MEDS: MULTIVITAMINS, THERA 1 EACH TAB PO SCH (08:41)
[2023-03-16] MEDS ORDERED: ASPIRIN 325 MG TAB PO SCH (09:00)
[2023-03-16 09:05] LABS: Chol/HDL Ratio 2.83 Ratio; LDL Cholesterol,Calculated 71.6 mg/dL (0.0-131.0)
[2023-03-16 12:06] LABS: Glucose,Whole Blood 150 mg/dL (70-110)
[2023-03-16 16:31] LABS: Glucose,Whole Blood 125 mg/dL (70-110)
--- NOTE | 2023-03-16 18:56 | P.PN ---
Progress Note - Text Progress Note Date: 03/16/23 Chief Complaint: Low heart rate This is a pleasant 72-year-old patient who follows with Dr. Trejo. Chronic stable medical conditions include diabetes mellitus type 2, hypertension, skin cancer. That was removed. Patient went for his regular physical checkup. He was discovered to have a low heart rate. Sent in to the ER. Found a variable block. Patient denies any chest pain palpitation dizziness lightheadedness shortness of breath or tiredness. Cardiology consulted. March 16: Comfortable. Mobitz type 1/2 second-degree AV block. Remains asymptomatic. Patient did undergo 2-D echocardiogram and a stress echocardiogram. Results pending. Active Medications Amlodipine Besylate (Amlodipine 5 Mg Tab) 5 mg PO DAILY [facility] Last Admin: 03/16/23 08:41 Dose: 5 mg Aspirin (Aspirin 81 Mg) 81 mg PO DAILY [facility] Last Admin: 03/16/23 08:40 Dose: Not Given Atorvastatin Calcium (Atorvastatin 20 Mg Tab) 20 mg PO HS [facility] Last Admin: 03/15/23 20:44 Dose: 20 mg Dextrose/Water (Dextrose 50% Syringe 50 Ml) 25 ml IVP PER PROTOCOL PRN; Protocol PRN Reason: Hypoglycemia Dextrose/Water (Dextrose 50% Syringe 50 Ml) 50 ml IVP PER PROTOCOL PRN; Protocol PRN Reason: Hypoglycemia Insulin Aspart (Insulin Aspart (Novolog) 100 Unit/Ml Vial) 0 unit SQ AC-TID [facility]; Protocol Last Admin: 03/16/23 16:55 Dose: Not Given Losartan Potassium (Losartan 50 Mg Tab) 50 mg PO HS [facility] Last Admin: 03/15/23 20:44 Dose: 50 mg Metformin HCl (Metformin 500 Mg Tab) 250 mg PO BID [facility] Last Admin: 03/16/23 08:41 Dose: 250 mg Multivitamins (Multivitamins, Thera 1 Each Tab) 1 each PO DAILY [facility] Last Admin: 03/16/23 08:41 Dose: 1 each Nitroglycerin (Nitroglycerin Sl Tabs 0.4 Mg Tab) 0.4 mg SUBLINGUAL Q5M PRN PRN Reason: Chest Pain Social history: Patient smoked one pack or weak for about 20 years stopped about 35 years ago. 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 . Physical examination: VITAL SIGNS: 98.2, 40, 18, 147/73, 96% room air GENERAL: Laying in bed, comfortable EYES: Pupils equal. Conjunctiva normal. HEENT: External appearance of nose and ears normal, oral cavity grossly normal. NECK: JVD not raised; masses not palpable. HEART: First and second heart sounds are normal; no edema. LUNGS: Respiratory rate normal; clear to auscultation. ABDOMEN: Soft, nontender, liver spleen not palpable, no masses palpable. PSYCH: Alert and oriented x3; mood and affect normal. MUSCULOSKELETAL:No Clubbing/cyanosis;muscles-grossly intact INVESTIGATIONS, reviewed in the clinical context: White count 8.3 hemoglobin 16.3 platelets 240 sodium 139 potassium 4.8 creatinine 1.06 Troponin I 0.012, 0.014 TSH 1.7 EKG tracing personally reviewed by [id number] AV block. Chest x-ray film personally reviewed by me-borderline cardiomegaly Assessment and plan: -Essential hypertension, controlled Amlodipine 5 mg added. Continue losartan. -Mobitz type 1/2 Second-degree AV block, asymptomatic 2-D echo and stress echocardiogram results pending -Diabetes mellitus type 2 on oral hypoglycemic Glucophage XL. Follow Accu-Cheks and sliding scale -Hyperlipidemia Zocor 40 mg daily at bedtime Care was discussed the patient . Pending cardiac results. Follow with cardiology. Past Medical History Past Medical History: Cancer, Diabetes Mellitus, Eye Disorder, Hypertension, Osteoarthritis (OA) Additional Past Medical History / Comment(s): hx. skin cancer, cataracts History of Any Multi-Drug Resistant Organisms: None Reported Past Surgical History: Hernia Repair, Orthopedic Surgery Additional Past Surgical History / Comment(s): knee surg. as a teen, arthroscopy right knee, retinal surg., rt cataract Past Anesthesia/Blood Transfusion Reactions: No Reported Reaction Past Psychological History: No Psychological Hx Reported Smoking Status: Former smoker Past Alcohol Use History: Occasional Past Drug Use History: None Reported - Past Family History Mother Family Medical History: No Reported History
[2023-03-16 19:28] LABS: Glucose,Whole Blood 125 mg/dL (70-110)
--- NOTE | 2023-03-16 19:42 | CA ---
Transthoracic Echo Report Name: Oliverio Miller Age: 72 Gender: M : 1950 Exam Date: 03/16/2023 11:01 Exam Location: [facility] Ht (in): 72 Wt (lb): 236 Ordering Physician: Chance Bonilla MD ([id number]) Attending/Referring Phys: Telephone Information Supervisor Venita Alfaro RDCS Procedure CPT: Indications: Bradycardia, check for chronotropic incompetence Cardiac Hx: Technical Quality: Fair Contrast 1: Definity Total Dose (mL): 2 Contrast 2: Total Dose (mL): MEASUREMENTS (Male / Female) Normal Values 2D ECHO LV Diastolic Diameter PLAX 5.3 cm 4.2 - 5.9 / 3.9 - 5.3 cm LV Systolic Diameter PLAX 3.3 cm IVS Diastolic Thickness 1.3 cm 0.6 - 1.0 / 0.6 - 0.9 cm LVPW Diastolic Thickness 1.2 cm 0.6 - 1.0 / 0.6 - 0.9 cm LV Relative Wall Thickness 0.5 RV Internal Dim ED PLAX 3.4 cm LA Systolic Diameter LX 3.8 cm 3.0 - 4.0 / 2.7 - 3.8 cm LV Diastolic Volume MOD 4C 99.0 cm??? LV Systolic Volume MOD 4C 44.6 cm??? LV Ejection Fraction MOD 4C 55.0 % LV Cardiac Index MOD 4C 967.7 cm???/min???m??? LV Diastolic Length 4C 8.5 cm LV Systolic Length 4C 6.9 cm LV Diastolic Volume MOD 2C 75.3 cm??? LV Systolic Volume MOD 2C 28.0 cm??? LV Ejection Fraction MOD 2C 62.9 % LV Cardiac Index MOD 2C 842.0 cm???/min???m??? LV Diastolic Length 2C 8.1 cm LV Systolic Length 2C 7.2 cm LA Volume 50.0 cm??? 18 - 58 / 22 - 52 cm??? LA Volume Index 21.2 cm???/m??? 16 - 28 cm???/m??? M-MODE Aortic Root Diameter MM 3.8 cm AV Cusp Separation MM 2.4 cm DOPPLER AV Peak Velocity 164.0 cm/s AV Peak Gradient 10.8 mmHg MV Area PHT 3.9 cm??? Mitral E Point Velocity 107.0 cm/s Mitral A Point Velocity 31.1 cm/s Mitral E to A Ratio 3.4 MV Deceleration Time 194.9 ms MV E' Velocity 7.9 cm/s Mitral E to MV E' Ratio 13.5 FINDINGS Left Ventricle Left ventricular ejection fraction is estimated at 55-60 %. Left ventricular cavity size normal. Mildly increased septal wall thickness. Right Ventricle Mild right ventricular dilatation. Unable to estimate the right ventricular systolic pressure. Right Atrium Normal right atrial size. Left Atrium Normal left atrial size. Mitral Valve Structurally normal mitral valve. No mitral stenosis, regurgitation or prolapse. Aortic Valve Trileaflet aortic valve. No aortic valve stenosis or regurgitation. Tricuspid Valve Structurally normal tricuspid valve. No tricuspid regurgitation. Pulmonic Valve Structurally normal pulmonic valve. Mild pulmonic regurgitation. Pericardium No pericardial effusion. Aorta Normal size aortic root and proximal ascending aorta. CONCLUSIONS Normal LV size and function Mildly enlarged right ventricle Previewed by: Dr. Kayden Head MD (Electronically Signed) Final Date: 16 March 2023 19:41
[2023-03-16] MEDS: LOSARTAN 50 MG TAB PO SCH (20:25)
[2023-03-16] MEDS: ATORVASTATIN 20 MG TAB PO SCH (20:25)
[2023-03-17 06:14] LABS: Glucose,Whole Blood 137 mg/dL (70-110)
[2023-03-17] MEDS: INSULIN ASPART (NovoLOG) 100 UNIT/ML VIAL SQ SCH ×3 (06:23→18:04)
[2023-03-17] MEDS: ASPIRIN 81 MG PO SCH (08:34)
[2023-03-17] MEDS: amLODIPine 5 MG TAB PO SCH (08:35)
[2023-03-17] MEDS: metFORMIN 500 MG TAB PO SCH (08:35)
[2023-03-17] MEDS: MULTIVITAMINS, THERA 1 EACH TAB PO SCH (08:35)
[2023-03-17 10:40] LABS: African American GFR (CKD) 73 (>60 ml/min/1.73 sqM); Anion Gap 10 mmol/L; Blood Urea Nitrogen 18 mg/dL (9-20); Calcium 9.6 mg/dL (8.4-10.2); Carbon Dioxide 25 mmol/L (22-30); Chloride 104 mmol/L (98-107); Glucose 158 mg/dL (74-99); Non-African American GFR(CKD) 63 (>60 ml/min/1.73 sqM); Potassium 4.4 mmol/L (3.5-5.1); Sodium 139 mmol/L (137-145)
[2023-03-17 11:58] LABS: Glucose,Whole Blood 110 mg/dL (70-110)
--- NOTE | 2023-03-17 13:14 | CA ---
Stress Echo Report Oliverio Miller Age: 72 Gender: M : 1950 Exam Date: 03/16/2023 10:33 Exam Location: [place] [facility] Ht (in): 72 Wt (lb): 236 Ordering Physician: Jameson Metzger MD ([id number]) Referring Physician: JAMESON METZGER,, Band Manager: Venita Alfaro RDCS Technologist Procedure CPT: Indication: Bradycardia, check for chronotropic incompetence ICD-9 Codes: Rhythm: Patient History: bradycardia, hypertension Cardiac Medications: Medications in past 24 hours: Contrast: Stress Results Protocol: Omar Total dose(mL): Exercise Duration (min:sec): 10:[address] Depression (mm): Angina Score: Doan Score: METS: 11.1 Resting HR: 52 Resting BP: 162 / 92 Peak HR: 115 Peak BP: 213 / 103 Max Predicted HR: 146 79 % Max Predicted HR Target HR: 124 Double Product: [id number] Stress Summary: BP Response: Reason for Termination: Maximal effort/unable to continue Cardiac Symptoms: no symptoms ECG Analysis Resting ECG: Stress ECG: Arrhythmia: Echo Analysis Resting Echo: Peak Echo Analysis: MEASUREMENTS (Male/Female) Normal Values CONCLUSIONS [age] gentleman with prolonged [place] interval at baseline, AV node Wenckebach block intimately at baseline and PVCs Patient exercised on a Omar protocol for 10 minutes, achieving a peak heart rate of 140 beats a minute. Peak blood pressure 185/88 mmHg While there was no ECG evidence for ischemia, no ST segment abnormalities and improvement noted in AV node function, the frequency of PVCs did increase and there was an episode of nonsustained polymorphic VT probably originating from the inferior wall of left ventricle. I see 6 beats of PMVT on the paper chart only The stress echo images suggest possible inferior wall hypokinesis at peak exercise but there was a PVC at that time that created a bubble in the image Suggest Evaluate for coronary artery disease with invasive imaging If normal consider implantation of a loop monitor Dr. Kayden Head MD (Electronically Signed) Final Date: 17 March 2023 13:13
[2023-03-17 16:57] LABS: Glucose,Whole Blood 155 mg/dL (70-110)
[2023-03-17] MEDS ORDERED: ALPRAZolam 0.25 MG TAB PO PRN (16:59)
[2023-03-17] MEDS ORDERED: ALPRAZolam 0.5 MG TAB PO PRN (16:59)
[2023-03-17] MEDS ORDERED: NITROGLYCERIN SL TABS 0.4 MG TAB SUBLINGUAL PRN (16:59)
--- NOTE | 2023-03-17 17:03 | P.PN ---
Subjective Progress Note Date: 03/17/23 Just prior to discharge her twelve-lead ECG was performed and it demonstrated that patient was going into complete heart block with AV dissociation. His resting heart rate was 36 beats a minute Due to this I canceled the patient's discharge. We can remove the patient's event monitor Monitor over the weekend, plan for heart catheterization on Monday at [address] Bonilla Plan for permanent pacemaker on Monday by Dr. puentes Objective - Vital Signs Vital signs: Vital Signs Temp 97.8 F 03/17/23 11:53 Pulse 38 L 03/17/23 11:53 Resp 18 03/17/23 11:53 BP 150/84 03/17/23 11:53 Pulse Ox 95 03/17/23 11:53 FiO2 Intake & Output 03/16/23 03/17/23 03/17/23 18:59 06:59 18:59 Intake Total 120 480 Balance 120 480 Weight 107.048 kg Intake: Oral 120 480 Other: Voiding Method Toilet Toilet # Voids 1 1 - Labs CBC & Chem 7: 03/15/23 12:45 03/17/23 09:43 Labs: Abnormal Lab Results - Last 24 Hours (Table) 03/16/23 03/17/23 03/17/23 Range/Units 19:26 06:13 09:43 Glucose 158 H (74-99) mg/dL POC Glucose (mg/dL) 125 H 137 H (70-110) mg/dL 03/17/23 Range/Units 16:40 Glucose (74-99) mg/dL POC Glucose (mg/dL) 155 H (70-110) mg/dL
--- NOTE | 2023-03-17 17:19 | P.PN ---
Progress Note - Text Progress Note Date: 03/17/23 Chief Complaint: Low heart rate This is a pleasant 72-year-old patient who follows with Dr. Trejo. Chronic stable medical conditions include diabetes mellitus type 2, hypertension, skin cancer. That was removed. Patient went for his regular physical checkup. He was discovered to have a low heart rate. Sent in to the ER. Found a variable block. Patient denies any chest pain palpitation dizziness lightheadedness shortness of breath or tiredness. Cardiology consulted. March 16: Comfortable. Mobitz type 1/2 second-degree AV block. Remains asymptomatic. Patient did undergo 2-D echocardiogram and a stress echocardiogram. Results pending. March 17: Patient remained in second-degree heart block. This evening questioning about third degree heart block. Plan for cartilage and proceed with cardiac catheterization tomorrow. Patient otherwise been asymptomatic. Stress echocardiogram did not show any ECG evidence of ischemia but the frequency is PVCs did increase and there was a episode of nonsustained polymorphic VT. Some suggestion of inferior wall hypokinesis at peak exercise. Active Medications Alprazolam (Alprazolam 0.25 Mg Tab) 0.25 mg PO Q6HR PRN PRN Reason: Mild Anxiety Alprazolam (Alprazolam 0.5 Mg Tab) 0.5 mg PO Q6HR PRN PRN Reason: Moderate Anxiety Amlodipine Besylate (Amlodipine 5 Mg Tab) 5 mg PO DAILY [facility] Last Admin: 03/17/23 08:35 Dose: 5 mg Aspirin (Aspirin 81 Mg) 81 mg PO DAILY [facility] Last Admin: 03/17/23 08:34 Dose: 81 mg Aspirin (Aspirin 325 Mg Tab) 325 mg PO ONCE ONE Stop: 03/20/23 12:01 Atorvastatin Calcium (Atorvastatin 20 Mg Tab) 20 mg PO HS [facility] Last Admin: 03/16/23 20:25 Dose: 20 mg Dextrose/Water (Dextrose 50% Syringe 50 Ml) 25 ml IVP PER PROTOCOL PRN; Protocol PRN Reason: Hypoglycemia Dextrose/Water (Dextrose 50% Syringe 50 Ml) 50 ml IVP PER PROTOCOL PRN; Protoc ol PRN Reason: Hypoglycemia Heparin Sodium (Porcine) 10, (000 unit/ Sodium Chloride) 1,001 mls @ 999 mls/hr IRRIGATION ONCE PRN PRN Reason: INTRA-OP Stop: 03/20/23 23:00 Heparin Sodium (Porcine) 2,500 (unit/ Sodium Chloride) 250.5 mls @ 250 mls/hr IRRIGATION ONCE PRN PRN Reason: INTRA-OP Stop: 03/20/23 23:00 Insulin Aspart (Insulin Aspart (Novolog) 100 Unit/Ml Vial) 0 unit SQ AC-TID [facility]; Protocol Last Admin: 03/17/23 11:57 Dose: Not Given Losartan Potassium (Losartan 50 Mg Tab) 50 mg PO HS [facility] Last Admin: 03/16/23 20:25 Dose: 50 mg Metformin HCl (Metformin 500 Mg Tab) 250 mg PO BID [facility] Last Admin: 03/17/23 08:35 Dose: 250 mg Multivitamins (Multivitamins, Thera 1 Each Tab) 1 each PO DAILY [facility] Last Admin: 03/17/23 08:35 Dose: 1 each Nitroglycerin (Nitroglycerin Sl Tabs 0.4 Mg Tab) 0.4 mg SUBLINGUAL Q5M PRN PRN Reason: Chest Pain Nitroglycerin (Nitroglycerin Sl Tabs 0.4 Mg Tab) 0.4 mg SUBLINGUAL Q5M PRN PRN Reason: Chest Pain Social history: Patient smoked one pack or weak for about 20 years stopped about 35 years ago. 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 . Physical examination: VITAL SIGNS: 97.3, 38, 18, 150/84, 95% room air GENERAL: Laying in bed, comfortable EYES: Pupils equal. Conjunctiva normal. HEENT: External appearance of nose and ears normal, oral cavity grossly normal. NECK: JVD not raised; masses not palpable. HEART: First and second heart sounds are normal; no edema. LUNGS: Respiratory rate normal; clear to auscultation. ABDOMEN: Soft, nontender, liver spleen not palpable, no masses palpable. PSYCH: Alert and oriented x3; mood and affect normal. MUSCULOSKELETAL:No Clubbing/cyanosis;muscles-grossly intact INVESTIGATIONS, reviewed in the clinical context: Stress echocardiogram: No EKG evidence of ischemia. Frequency of PVCs did increase. Episode of nonsustained polymorphic VT originating from the inferior wall of the left ventricle. Possible inferior wall hypokinesis at peak exercise. 2-D echocardiogram: EF 55-60%. March 17: Potassium 4.4 creatinine 1.15 White count 8.3 hemoglobin 16.3 platelets 240 sodium 139 potassium 4.8 creatinine 1.06 Troponin I 0.012, 0.014 TSH 1.7 EKG tracing personally reviewed by [id number] AV block. Chest x-ray film personally reviewed by me-borderline cardiomegaly Assessment and plan: -Essential hypertension, Amlodipine 5 mg . losartan. -Mobitz type 2 Second-degree AV block, possible third-degree heart block.: Not improving Stress echocardiogram possibly suggesting of inferior wall hypokinesia For cardiac catheterization tomorrow -Diabetes mellitus type 2 on oral hypoglycemic Glucophage XL. Follow Accu-Cheks and sliding scale -Hyperlipidemia Zocor 40 mg daily at bedtime Hold Glucophage. Other medications to continue. Pending cardiac catheterization tomorrow Past Medical History Past Medical History: Cancer, Diabetes Mellitus, Eye Disorder, Hypertension, Osteoarthritis (OA) Additional Past Medical History / Comment(s): hx. skin cancer, cataracts History of Any Multi-Drug Resistant Organisms: None Reported Past Surgical History: Hernia Repair, Orthopedic Surgery Additional Past Surgical History / Comment(s): knee surg. as a teen, arthroscopy right knee, retinal surg., rt cataract Past Anesthesia/Blood Transfusion Reactions: No Reported Reaction Past Psychological History: No Psychological Hx Reported Smoking Status: Former smoker Past Alcohol Use History: Occasional Past Drug Use History: None Reported - Past Family History Mother Family Medical History: No Reported History
[2023-03-17] MEDS: ATORVASTATIN 20 MG TAB PO SCH (19:59)
[2023-03-17] MEDS: LOSARTAN 50 MG TAB PO SCH (19:59)
[2023-03-17 20:10] LABS: Glucose,Whole Blood 105 mg/dL (70-110)
[2023-03-18] MEDS: INSULIN ASPART (NovoLOG) 100 UNIT/ML VIAL SQ SCH ×3 (06:04→16:37)
[2023-03-18 06:08] LABS: Glucose,Whole Blood 132 mg/dL (70-110)
[2023-03-18] MEDS: MULTIVITAMINS, THERA 1 EACH TAB PO SCH (09:35)
[2023-03-18] MEDS: ASPIRIN 81 MG PO SCH (09:35)
[2023-03-18 11:39] LABS: Glucose,Whole Blood 101 mg/dL (70-110)
[2023-03-18 16:21] LABS: Glucose,Whole Blood 128 mg/dL (70-110)
[2023-03-18] MEDS: amLODIPine 5 MG TAB PO SCH (16:37)
--- NOTE | 2023-03-18 19:01 | P.PN ---
Progress Note - Text Progress Note Date: 03/18/23 Chief Complaint: Low heart rate This is a pleasant 72-year-old patient who follows with Dr. Trejo. Chronic stable medical conditions include diabetes mellitus type 2, hypertension, skin cancer. That was removed. Patient went for his regular physical checkup. He was discovered to have a low heart rate. Sent in to the ER. Found a variable block. Patient denies any chest pain palpitation dizziness lightheadedness shortness of breath or tiredness. Cardiology consulted. March 16: Comfortable. Mobitz type 1/2 second-degree AV block. Remains asymptomatic. Patient did undergo 2-D echocardiogram and a stress echocardiogram. Results pending. March 17: Patient remained in second-degree heart block. This evening questioning about third degree heart block. Plan for cartilage and proceed with cardiac catheterization tomorrow. Patient otherwise been asymptomatic. Stress echocardiogram did not show any ECG evidence of ischemia but the frequency is PVCs did increase and there was a episode of nonsustained polymorphic VT. Some suggestion of inferior wall hypokinesis at peak exercise. March 18: Patient remains asymptomatic. Today has been in third-degree heart block most of the day. Plan is for cardiac catheterization on Monday but possibly followed by pacemaker. Discussed with patient and at the bedside. Remains asymptomatic. Active Medications Alprazolam (Alprazolam 0.25 Mg Tab) 0.25 mg PO Q6HR PRN PRN Reason: Mild Anxiety Alprazolam (Alprazolam 0.5 Mg Tab) 0.5 mg PO Q6HR PRN PRN Reason: Moderate Anxiety Aspirin (Aspirin 81 Mg) 81 mg PO DAILY [facility] Last Admin: 03/18/23 09:35 Dose: 81 mg Aspirin (Aspirin 325 Mg Tab) 325 mg PO ONCE ONE Stop: 03/20/23 12:01 Atorvastatin Calcium (Atorvastatin 20 Mg Tab) 20 mg PO HS [facility] Last Admin: 03/17/23 19:59 Dose: 20 mg Dextrose/Water (Dextrose 50% Syringe 50 Ml) 25 ml IVP PER PROTOCOL PRN; Protocol PRN Reason: Hypoglycemia Dextrose/Water (Dextrose 50% Syringe 50 Ml) 50 ml IVP PER PROTOCOL PRN; Protocol PRN Reason: Hypoglycemia Heparin Sodium (Porcine) 10, (000 unit/ Sodium Chloride) 1,001 mls @ 999 mls/hr IRRIGATION ONCE PRN PRN Reason: INTRA-OP Stop: 03/20/23 23:00 Heparin Sodium (Porcine) 2,500 (unit/ Sodium Chloride) 250.5 mls @ 250 mls/hr IRRIGATION ONCE PRN PRN Reason: INTRA-OP Stop: 03/20/23 23:00 Insulin Aspart (Insulin Aspart (Novolog) 100 Unit/Ml Vial) 0 unit SQ AC-TID [facility]; Protocol Last Admin: 03/18/23 16:37 Dose: Not Given Losartan Potassium (Losartan 50 Mg Tab) 50 mg PO HS [facility] Last Admin: 03/17/23 19:59 Dose: 50 mg Multivitamins (Multivitamins, Thera 1 Each Tab) 1 each PO DAILY [facility] Last Admin: 03/18/23 09:35 Dose: 1 each Nitroglycerin (Nitroglycerin Sl Tabs 0.4 Mg Tab) 0.4 mg SUBLINGUAL Q5M PRN PRN Reason: Chest Pain Nitroglycerin (Nitroglycerin Sl Tabs 0.4 Mg Tab) 0.4 mg SUBLINGUAL Q5M PRN PRN Reason: Chest Pain Social history: Patient smoked one pack or weak for about 20 years stopped about 35 years ago. 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 . Physical examination: VITAL SIGNS: 98.1, 40, 18, 143/70, 97% room air GENERAL: Laying in bed, comfortable EYES: Pupils equal. Conjunctiva normal. HEENT: External appearance of nose and ears normal, oral cavity grossly normal. NECK: JVD not raised; masses not palpable. HEART: First and second heart sounds are normal; no edema. LUNGS: Respiratory rate normal; clear to auscultation. ABDOMEN: Soft, nontender, liver spleen not palpable, no masses palpable. PSYCH: Alert and oriented x3; mood and affect normal. MUSCULOSKELETAL:No Clubbing/cyanosis;muscles-grossly intact INVESTIGATIONS, reviewed in the clinical context: Stress echocardiogram: No EKG evidence of ischemia. Frequency of PVCs did increase. Episode of nonsustained polymorphic VT originating from the inferior wall of the left ventricle. Possible inferior wall hypokinesis at peak exercise. 2-D echocardiogram: EF 55-60%. March 17: Potassium 4.4 creatinine 1.15 White count 8.3 hemoglobin 16.3 platelets 240 sodium 139 potassium 4.8 creatinine 1.06 Troponin I 0.012, 0.014 TSH 1.7 EKG tracing personally reviewed by [id number] AV block. Chest x-ray film personally reviewed by me-borderline cardiomegaly Assessment and plan: -Essential hypertension, Amlodipine 5 mg . losartan. -Mobitz type 2 Second-degree AV block, / third-degree heart block.: Not improving Stress echocardiogram possibly suggesting of inferior wall hypokinesia cardiac catheterization Monday Followed by possible pacemaker -IV heparin monitoring Follow PTT -Diabetes mellitus type 2 on oral hypoglycemic Glucophage XL-hold. Follow Accu-Cheks and sliding scale -Hyperlipidemia Zocor 40 mg daily at bedtime Discuss. Cardiac catheterization Monday. Possibly pacemaker. Past Medical History Past Medical History: Cancer, Diabetes Mellitus, Eye Disorder, Hypertension, Osteoarthritis (OA) Additional Past Medical History / Comment(s): hx. skin cancer, cataracts History of Any Multi-Drug Resistant Organisms: None Reported Past Surgical History: Hernia Repair, Orthopedic Surgery Additional Past Surgical History / Comment(s): knee surg. as a teen, arthroscopy right knee, retinal surg., rt cataract Past Anesthesia/Blood Transfusion Reactions: No Reported Reaction Past Psychological History: No Psychological Hx Reported Smoking Status: Former smoker Past Alcohol Use History: Occasional Past Drug Use History: None Reported
--- NOTE | 2023-03-18 19:12 | P.PN ---
Subjective Progress Note Date: 03/18/23 Progress note: Seen and examined with the decision. Patient denies having any active chest pain chest pressure shortness of breath. He is noticed to have a 3 second pause today. He is intermittent the intermittent second-degree AV block with Mobitz type II block. He has not had any syncopal episodes PHYSICAL EXAMINATION Vital signs reviewed. Head: Normocephalic. Eyes: Sclerae nonicteric. Neck: Brisk carotid upstroke, no jugular venous distention. Lungs: Clear to auscultation. Heart: irregular rhythm, S1-S2, no S3, no murmur or rub. Abdomen: Soft nontender, positive bowel sounds no organomegaly. Extremities: No edema, intact distal pulses. ASSESSMENT Mobitz type I second-degree AV block, asymptomatic, on initial presentation. Degraded to complete heart block with intermittent Mobitz type II second-degree AV block Positive stress test with inferior wall hypokinesia Polymorphic VT originating from inferior wall on stress test Essential hypertension Dyslipidemia Obesity Type 2 diabetes PLAN Plan for cardiac catheterization with Dr. Bonilla at 12 noon Monday. Plan for pacemaker with Dr. puentes on Monday Hold amlodipine due to normal blood pressure Continue losartan 50, aspirin and atorvastatin Objective - Vital Signs Vital signs: Vital Signs Temp 98.1 F 03/18/23 08:30 Pulse 50 L 03/18/23 16:00 Resp 18 03/18/23 16:00 BP 143/70 03/18/23 16:00 Pulse Ox 97 03/18/23 16:00 FiO2 Intake & Output 03/18/23 03/18/23 03/19/23 06:59 18:59 06:59 Intake Total 476 Balance 476 Intake: Oral 476 Other: Voiding Method Toilet Toilet # Voids 1 2 - Labs CBC & Chem 7: 03/15/23 12:45 03/17/23 09:43 Labs: Abnormal Lab Results - Last 24 Hours (Table) 03/18/23 03/18/23 Range/Units 06:04 16:20 POC Glucose (mg/dL) 132 H 128 H (70-110) mg/dL
[2023-03-18] MEDS: LOSARTAN 50 MG TAB PO SCH (19:44)
[2023-03-18] MEDS: ATORVASTATIN 20 MG TAB PO SCH (19:44)
[2023-03-18 20:09] LABS: Glucose,Whole Blood 111 mg/dL (70-110)
[2023-03-19 06:11] LABS: Glucose,Whole Blood 135 mg/dL (70-110)
[2023-03-19] MEDS: INSULIN ASPART (NovoLOG) 100 UNIT/ML VIAL SQ SCH ×3 (06:13→17:04)
[2023-03-19] MEDS: MULTIVITAMINS, THERA 1 EACH TAB PO SCH (08:53)
[2023-03-19] MEDS: ASPIRIN 81 MG PO SCH (08:53)
[2023-03-19 11:35] LABS: Glucose,Whole Blood 118 mg/dL (70-110)
--- NOTE | 2023-03-19 13:57 | P.PN ---
Subjective Progress Note Date: 03/19/23 Progress note: He is noticed to have a 3 second pause yesterday. He is intermittent the intermittent second-degree AV block with Mobitz type II block. No new events PHYSICAL EXAMINATION Vital signs reviewed. Head: Normocephalic. Eyes: Sclerae nonicteric. Neck: Brisk carotid upstroke, no jugular venous distention. Lungs: Clear to auscultation. Heart: irregular rhythm, S1-S2, no S3, no murmur or rub. Abdomen: Soft nontender, positive bowel sounds no organomegaly. Extremities: No edema, intact distal pulses. ASSESSMENT Mobitz type I second-degree AV block, asymptomatic, on initial presentation. Degraded to complete heart block with intermittent Mobitz type II second-degree AV block Positive stress test with inferior wall hypokinesia Polymorphic VT originating from inferior wall on stress test Essential hypertension Dyslipidemia Obesity Type 2 diabetes PLAN Plan for cardiac catheterization with Dr. Bonilla at 12 noon Monday. Plan for pacemaker with Dr. puentes on Monday Hold amlodipine due to normal blood pressure Continue losartan 50, aspirin and atorvastatin Objective - Vital Signs Vital signs: Vital Signs Temp 98.1 F 03/18/23 20:00 Pulse 42 L 03/19/23 12:00 Resp 18 03/19/23 12:00 BP 139/80 03/19/23 12:00 Pulse Ox 97 03/19/23 12:00 FiO2 Intake & Output 03/18/23 03/19/23 03/19/23 18:59 06:59 18:59 Intake Total 476 480 Balance 476 480 Intake: Oral 476 480 Other: Voiding Method Toilet Toilet Toilet # Voids 2 2 - Labs CBC & Chem 7: 03/15/23 12:45 03/17/23 09:43 Labs: Abnormal Lab Results - Last 24 Hours (Table) 03/18/23 03/18/23 03/19/23 Range/Units 16:20 20:07 06:04 POC Glucose (mg/dL) 128 H 111 H 135 H (70-110) mg/dL 03/19/23 Range/Units 11:34 POC Glucose (mg/dL) 118 H (70-110) mg/dL
[2023-03-19 16:41] LABS: Glucose,Whole Blood 123 mg/dL (70-110)
--- NOTE | 2023-03-19 18:35 | P.PN ---
Progress Note - Text Progress Note Date: 03/19/23 Chief Complaint: Low heart rate This is a pleasant 72-year-old patient who follows with Dr. Trejo. Chronic stable medical conditions include diabetes mellitus type 2, hypertension, skin cancer. That was removed. Patient went for his regular physical checkup. He was discovered to have a low heart rate. Sent in to the ER. Found a variable block. Patient denies any chest pain palpitation dizziness lightheadedness shortness of breath or tiredness. Cardiology consulted. March 16: Comfortable. Mobitz type 1/2 second-degree AV block. Remains asymptomatic. Patient did undergo 2-D echocardiogram and a stress echocardiogram. Results pending. March 17: Patient remained in second-degree heart block. This evening questioning about third degree heart block. Plan for cartilage and proceed with cardiac catheterization tomorrow. Patient otherwise been asymptomatic. Stress echocardiogram did not show any ECG evidence of ischemia but the frequency is PVCs did increase and there was a episode of nonsustained polymorphic VT. Some suggestion of inferior wall hypokinesis at peak exercise. March 18: Patient remains asymptomatic. Today has been in third-degree heart block most of the day. Plan is for cardiac catheterization on Monday but possibly followed by pacemaker. Discussed with patient and at the bedside. Remains asymptomatic. March 19: Sitting up in bed. Comfortable. No guarding symptoms. Remains in third-degree heart block. Plan for cardiac catheterization tomorrow. Active Medications Alprazolam (Alprazolam 0.25 Mg Tab) 0.25 mg PO Q6HR PRN PRN Reason: Mild Anxiety Alprazolam (Alprazolam 0.5 Mg Tab) 0.5 mg PO Q6HR PRN PRN Reason: Moderate Anxiety Aspirin (Aspirin 81 Mg) 81 mg PO DAILY [facility] Last Admin: 03/19/23 08:53 Dose: 81 mg Aspirin (Aspirin 325 Mg Tab) 325 mg PO ONCE ONE Stop: 03/20/23 12:01 Atorvastatin Calcium (Atorvastatin 20 Mg Tab) 20 mg PO HS [facility] Last Admin: 03/18/23 19:44 Dose: 20 mg Dextrose/Water (Dextrose 50% Syringe 50 Ml) 25 ml IVP PER PROTOCOL PRN; Protocol PRN Reason: Hypoglycemia Dextrose/Water (Dextrose 50% Syringe 50 Ml) 50 ml IVP PER PROTOCOL PRN; Protocol PRN Reason: Hypoglycemia Heparin Sodium (Porcine) 10, (000 unit/ Sodium Chloride) 1,001 mls @ 999 mls/hr IRRIGATION ONCE PRN PRN Reason: INTRA-OP Stop: 03/20/23 23:00 Heparin Sodium (Porcine) 2,500 (unit/ Sodium Chloride) 250.5 mls @ 250 mls/hr IRRIGATION ONCE PRN PRN Reason: INTRA-OP Stop: 03/20/23 23:00 Insulin Aspart (Insulin Aspart (Novolog) 100 Unit/Ml Vial) 0 unit SQ AC-TID [facility]; Protocol Last Admin: 03/19/23 17:04 Dose: Not Given Losartan Potassium (Losartan 50 Mg Tab) 50 mg PO HS [facility] Last Admin: 03/18/23 19:44 Dose: 50 mg Multivitamins (Multivitamins, Thera 1 Each Tab) 1 each PO DAILY [facility] Last Admin: 03/19/23 08:53 Dose: 1 each Nitroglycerin (Nitroglycerin Sl Tabs 0.4 Mg Tab) 0.4 mg SUBLINGUAL Q5M PRN PRN Reason: Chest Pain Nitroglycerin (Nitroglycerin Sl Tabs 0.4 Mg Tab) 0.4 mg SUBLINGUAL Q5M PRN PRN Reason: Chest Pain Social history: Patient smoked one pack or weak for about 20 years stopped about 35 years ago. 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 . Physical examination: VITAL SIGNS: 33, 16, 156/75, 97% room air GENERAL: Sitting up in bed, comfortable EYES: Pupils equal. Conjunctiva normal. HEENT: External appearance of nose and ears normal, oral cavity grossly normal. NECK: JVD not raised; masses not palpable. HEART: First and second heart sounds are normal; no edema. LUNGS: Respiratory rate normal; clear to auscultation. ABDOMEN: Soft, nontender, liver spleen not palpable, no masses palpable. PSYCH: Alert and oriented x3; mood and affect normal. MUSCULOSKELETAL:No Clubbing/cyanosis;muscles-grossly intact INVESTIGATIONS, reviewed in the clinical context: Stress echocardiogram: No EKG evidence of ischemia. Frequency of PVCs did increase. Episode of nonsustained polymorphic VT originating from the inferior wall of the left ventricle. Possible inferior wall hypokinesis at peak exercise. 2-D echocardiogram: EF 55-60%. March 17: Potassium 4.4 creatinine 1.15 White count 8.3 hemoglobin 16.3 platelets 240 sodium 139 potassium 4.8 creatinine 1.06 Troponin I 0.012, 0.014 TSH 1.7 EKG tracing personally reviewed by [id number] AV block. Chest x-ray film personally reviewed by me-borderline cardiomegaly Assessment and plan: -Essential hypertension, Amlodipine 5 mg . losartan. -Mobitz type 2 Second-degree AV block, / third-degree heart block.: Not improving Stress echocardiogram possibly suggesting of inferior wall hypokinesia cardiac catheterization Monday Followed by possible pacemaker -IV heparin monitoring Follow PTT -Diabetes mellitus type 2 on oral hypoglycemic Glucophage XL-hold. Follow Accu-Cheks and sliding scale -Hyperlipidemia Zocor 40 mg daily at bedtime Cardiac catheterization Monday. Possibly pacemaker-to stay. Past Medical History Past Medical History: Cancer, Diabetes Mellitus, Eye Disorder, Hypertension, Osteoarthritis (OA) Additional Past Medical History / Comment(s): hx. skin cancer, cataracts History of Any Multi-Drug Resistant Organisms: None Reported Past Surgical History: Hernia Repair, Orthopedic Surgery Additional Past Surgical History / Comment(s): knee surg. as a teen, arthroscopy right knee, retinal surg., rt cataract Past Anesthesia/Blood Transfusion Reactions: No Reported Reaction Past Psychological History: No Psychological Hx Reported Smoking Status: Former smoker Past Alcohol Use History: Occasional Past Drug Use History: None Reported
[2023-03-19 20:15] LABS: Glucose,Whole Blood 142 mg/dL (70-110)
[2023-03-19] MEDS: LOSARTAN 50 MG TAB PO SCH (21:26)
[2023-03-19] MEDS: ATORVASTATIN 20 MG TAB PO SCH (21:26)
[2023-03-20 05:57] LABS: Glucose,Whole Blood 136 mg/dL (70-110)
[2023-03-20] MEDS ORDERED: HEPARIN SODIUM,PORCINE 10,000 UNIT in SODIUM CHLORIDE 0.9% 1,000 ML IRRIGATION PRN (06:00)
[2023-03-20] MEDS ORDERED: HEPARIN SODIUM,PORCINE (1 ML) 2,500 UNIT in SODIUM CHLORIDE 0.9% 250 ML IRRIGATION PRN (06:00)
[2023-03-20] MEDS: INSULIN ASPART (NovoLOG) 100 UNIT/ML VIAL SQ SCH ×3 (06:19→16:57)
[2023-03-20] MEDS: ASPIRIN 81 MG PO SCH (09:38)
[2023-03-20 10:15] LABS: African American GFR (CKD) 81 (>60 ml/min/1.73 sqM); Anion Gap 9 mmol/L; Blood Urea Nitrogen 16 mg/dL (9-20); Calcium 9.7 mg/dL (8.4-10.2); Carbon Dioxide 23 mmol/L (22-30); Chloride 106 mmol/L (98-107); Glucose 140 mg/dL (74-99); Non-African American GFR(CKD) 70 (>60 ml/min/1.73 sqM); Potassium 4.7 mmol/L (3.5-5.1); Sodium 138 mmol/L (137-145)
[2023-03-20 11:41] LABS: Glucose,Whole Blood 125 mg/dL (70-110)
[2023-03-20] MEDS ORDERED: ASPIRIN 325 MG TAB PO ONE (12:00)
[2023-03-20] MEDS ORDERED: fentaNYL (PF) 50 MCG/ML 2 ML AMP ONE (12:03)
[2023-03-20] MEDS ORDERED: MIDAZOLAM 2 MG/2 ML VIAL IVP ONE (12:09)
[2023-03-20] MEDS ORDERED: fentaNYL (PF) 50 MCG/1 ML VIAL IVP ONE (12:09)
[2023-03-20] MEDS ORDERED: VERAPAMIL SYRINGE (5 MG/10 ML) INTRAARTER ONE (12:09)
[2023-03-20] MEDS ORDERED: LIDOCAINE 1% INJ 10MG/ML (30 ML VIAL-PF) SQ ONE (12:09)
[2023-03-20] MEDS ORDERED: IV FLUID CONTINUATION 1,000 ML IV ONE (12:11)
[2023-03-20] MEDS ORDERED: HEPARIN SODIUM 1,000 UN/ML (10ML VL) ONE (12:19)
[2023-03-20] MEDS ORDERED: HEPARIN SODIUM 1,000 UN/ML (10ML VL) IV ONE (12:24)
[2023-03-20] MEDS ORDERED: IOPAMIDOL-370 200ML BTL INJ ONE (12:32)
[2023-03-20] MEDS ORDERED: RX INFO: IV CONTRAST WAS GIVEN 1 EACH MISC MISCELLANE PRN (12:57)
--- NOTE | 2023-03-20 12:57 | P.CARDCATH ---
Date of Procedure: 03/20/23 Description of Procedure: DIAGNOSTIC CORONARY ANGIOGRAPHY and LEFT HEART CATH REPORT Transvenous pacemaker PROCEDURES PERFORMED: Left heart catheterization Selective coronary angiography Moderate conscious sedation 29 mins Ultrasound assisted Right radial access Ultrasound assisted right femoral vein access Transvenous pacemaker placement INDICATION: Positive stress test and complete heart block 72-year-old male presented to the hospital from PCP because of abnormally low heart rate. On admission he was noticed to be Mobitz type I Wenckebach heart block. He underwent a stress test with treadmill echocardiogram which showed an evidence of polymorphic ventricular tachycardia. Later that day he also had an episode of intermittent third-degree AV block with junctional escape rhythm and AV dissociation. He has intermittently been going into Mobitz type II heart block. He has stayed asymptomatic. Due to polymorphic ventricular tachycardia, concerns of possible inferior wall hypokinesia on echocardiogram and complete heart block he was scheduled for an inpatient heart catheterization. CONSENT: I have discussed the risks, benefits and alternative therapies for the above-mentioned procedure, sedation/analgesia and necessary blood product administration (if indicated, as they pertain to this patient). The patient has indicated understanding and acceptance of the risks and procedures discussed. Conscious Sedation: Patient's ECG, heart rate, blood pressure, pulse oximetry was monitored throughout the duration of procedure under the direct supervision. [2] mg Versed and [50] mg Fentanyl were used for induction of moderate conscious sedation. Total duration of 29 minutes. PROCEDURE:After the risks, benefits and alternatives of the above mentioned procedure explained in detail with the patient, informed consent was obtained. Because patient has a tendency of going into complete heart block, it was decided to place a TVP before performing the catheterization Ultrasound was used to identify the right femoral vein. 1% lidocaine was infiltrated over the right femoral vein. Ultrasound assisted right femoral vein access was obtained. TVP was advanced and secured at IVC, right atrial junction. Balloon is inflated. Transvenous pacemaker is not on. Ultrasound was used to identify the radial artery. Patient was taken to the catheterization lab and prepped and draped in usual sterile fashion. 1% lidocaine was infiltrated over the right radial artery. A 6-Djiboutian sheath was placed in the right radial artery using modified Seldinger technique. The sheath was flushed 5 mg verapamil was administered intra-arterially. J tipped wire was advanced under fluoroscopic guidance. Once the wire tip reached aortic root [6000] units of IV heparin was given. Over the wire JL3.5 diagnostic catheter was advanced. Wire was removed, catheter was flushed and manipulated under fluoroscopy to selectively engaged the left coronary ostium. Left coronary angioplasty was performed in different angiographic projections. This catheter was exchanged for a JR4 diagnostic catheter over the wire. The catheter was flushed and manipulated to cross the aortic valve. LV pressures were obtained. Pullback was performed across aortic valve and catheter was manipulated to selectively engage the right coronary ostium under fluoroscopic guidance. Right coronary angiography was performed in different angiographic projections. Catheter was removed over the wire. Radial sheath was flushed. The right radial sheath was removed and a TR band was placed with excellent patent hemostasis was achieved. The patient tolerated the procedure well. Patient was transported back to the post catheterization holding area in stable condition. Angiographic images were reviewed in detail. HEMODYNAMICS: Aortic Pressure: 131/49 mmHg. LVEDP 11 mmHg. There was no gradient across aortic valve SELECTIVE CORONARY ARTERIOGRAPHY: LEFT MAIN: The left main is a large caliber vessel which bifurcates into the LAD and circumflex. There is no significant stenosis. LEFT ANTERIOR DESCENDING CORONARY ARTERY: LAD is a large caliber vessel which wraps around to the apex. Proximal LAD has mild luminal irregularities. Mid LAD has 30-40% calcific disease. Distal LAD has mild luminal irregularities. It is noticed that there is poor flow in distal LAD, MARTINA 2 LEFT CIRCUMFLEX CORONARY ARTERY: It is nondominant vessel. Left circumflex is a moderate caliber vessel without significant stenosis. OM branches appears angiographic normal. Slow flow overall RIGHT CORONARY ARTERY: Dominant vessel. The right coronary artery is a large c aliber vessel which gives off a PDA and PLV branch. RCA has mild luminal irregularities. There is slow distal flow, MARTINA 2 IMPRESSION: No significant epicardial coronary artery disease MARTINA 2 flow in RCA and distal LAD, suggestive of microvascular disease Wenckebach Intermittent type II heart block and complete heart block PLAN: Transvenous pacemaker through the right femoral sheath is secured. Patient is currently not paced. Will need aggressive risk factor modification and antianginal therapy for microvascular disease IV fluids 150ml 3 hours Routine postop care Admitted to ICU Plan for PPM tomorrow. Performing Physician Chance Bonilla MD
[2023-03-20] MEDS ORDERED: SODIUM CHLORIDE 0.9% 1,000 ML IV SCH ×2 (13:00→16:45)
[2023-03-20 13:23] LABS: Glucose,Whole Blood 134 mg/dL (70-110)
[2023-03-20] MEDS: MULTIVITAMINS, THERA 1 EACH TAB PO SCH (13:31)
--- NOTE | 2023-03-20 15:29 | P.EPCON ---
Electrophysiology Consult - EP Consult Electrophysiology Consult: This is Dr. Head dictating a consult on this patient The patient was interviewed and examined IMPRESSION / ASSESSMENT: 2-1 AV block/intermittent third-degree heart block with a narrow QRS escape rhythm PMVT with exercise No epicardial coronary artery disease of any significance Preserved LV size and function PLAN: Dual-chamber pacemaker implantation with conduction system pacing tomorrow As detailed discussion with patient regarding this Following that we will start him on beta blockers HPI patient was referred to the emergency room by his primary care physician for a very slow heart rate in the 30s His pulse rate was in the 40s and his blood pressure was 189/81 mmHg Twelve-lead EKG showed 2-1 AV block Thereafter he underwent exercise stress test which showed improvement in AV node function and MD interval with exercise but evidence of runs of nonsustained ventricular tachycardia/PMVT possibly from the inferior wall. Subsequent EKG on the floor showed third degree heart block heart rate 35 beats a minute, narrow QRS escape rhythm Coronary angiography today did not reveal any significant epicardial coronary artery disease He was transferred to the ICU with the TVP for intermittent third-degree heart block I had a very detailed discussion with him regarding future plans for permanent pacing along with beta blockers for management of PMVT ROS: No fever chills or rigors, no cough, phlegm or expectoration, no nausea, vomiting or diarrhea, no hematuria, dysuria, no musculoskeletal complaints, no strokes or seizures, no skin lesions. EXAMINATION: 143/82 mmHg normal respirations Heart rate 43 beats a minute Breath sounds are reduced bilaterally but no rhonchi no crackles Heart sounds S1 and S2 are normal no murmurs No JVD REVIEW OF LABS, ECG & MEDICAL DATA Normal electrolytes Normal renal function TSH 1.7
[2023-03-20 16:54] LABS: Glucose,Whole Blood 145 mg/dL (70-110)
[2023-03-20 20:33] LABS: Glucose,Whole Blood 133 mg/dL (70-110)
--- NOTE | 2023-03-20 20:39 | P.PN ---
Progress Note - Text Progress Note Date: 03/20/23 Chief Complaint: Low heart rate This is a pleasant 72-year-old patient who follows with Dr. Trejo. Chronic stable medical conditions include diabetes mellitus type 2, hypertension, skin cancer. That was removed. Patient went for his regular physical checkup. He was discovered to have a low heart rate. Sent in to the ER. Found a variable block. Patient denies any chest pain palpitation dizziness lightheadedness shortness of breath or tiredness. Cardiology consulted. March 16: Comfortable. Mobitz type 1/2 second-degree AV block. Remains asymptomatic. Patient did undergo 2-D echocardiogram and a stress echocardiogram. Results pending. March 17: Patient remained in second-degree heart block. This evening questioning about third degree heart block. Plan for cartilage and proceed with cardiac catheterization tomorrow. Patient otherwise been asymptomatic. Stress echocardiogram did not show any ECG evidence of ischemia but the frequency is PVCs did increase and there was a episode of nonsustained polymorphic VT. Some suggestion of inferior wall hypokinesis at peak exercise. March 18: Patient remains asymptomatic. Today has been in third-degree heart block most of the day. Plan is for cardiac catheterization on Monday but possibly followed by pacemaker. Discussed with patient and at the bedside. Remains asymptomatic. March 19: Sitting up in bed. Comfortable. No guarding symptoms. Remains in third-degree heart block. Plan for cardiac catheterization tomorrow. March 20: ICU. Underwent cardiac catheterization. No significant CAD. Remains in intermittent type II heart block and complete heart block. 4 pacemaker placement tomorrow. No other symptoms. Transvenous pacemaker. Active Medications Alprazolam (Alprazolam 0.25 Mg Tab) 0.25 mg PO Q6HR PRN PRN Reason: Mild Anxiety Alprazolam (Alprazolam 0.5 Mg Tab) 0.5 mg PO Q6HR PRN PRN Reason: Moderate Anxiety Aspirin (Aspirin 81 Mg) 81 mg PO DAILY [facility] Last Admin: 03/20/23 09:38 Dose: Not Given Atorvastatin Calcium (Atorvastatin 20 Mg Tab) 20 mg PO HS [facility] Last Admin: 03/19/23 21:26 Dose: 20 mg Dextrose/Water (Dextrose 50% Syringe 50 Ml) 25 ml IVP PER PROTOCOL PRN; Protocol PRN Reason: Hypoglycemia Dextrose/Water (Dextrose 50% Syringe 50 Ml) 50 ml IVP PER PROTOCOL PRN; Protocol PRN Reason: Hypoglycemia Heparin Sodium (Porcine) 10, (000 unit/ Sodium Chloride) 1,001 mls @ 999 mls/hr IRRIGATION ONCE PRN PRN Reason: INTRA-OP Stop: 03/20/23 23:00 Heparin Sodium (Porcine) 2,500 (unit/ Sodium Chloride) 250.5 mls @ 250 mls/hr IRRIGATION ONCE PRN PRN Reason: INTRA-OP Stop: 03/20/23 23:00 Sodium Chloride (Saline 0.9%) 1,000 mls @ 50 mls/hr IV .Q20H [facility] Last Admin: 03/20/23 16:47 Dose: Not Given Cefazolin Sodium 2 gm/ Sodium (Chloride) 50 mls @ 100 mls/hr IVPB ONCE PRN PRN Reason: Pre-Op Stop: 03/21/23 23:00 Cefazolin Sodium 1 gm/ Sodium (Chloride) 250 mls @ 250 mls/hr IRRIGATION ONCE PRN PRN Reason: PRE-OP Stop: 03/21/23 23:00 Vancomycin HCl 1,500 mg/ (Sodium Chloride) 250 mls @ 125 mls/hr IVPB ONCE ONE; Protocol Stop: 03/21/23 10:59 Insulin Aspart (Insulin Aspart (Novolog) 100 Unit/Ml Vial) 0 unit SQ AC-TID [facility]; Protocol Last Admin: 03/20/23 16:57 Dose: Not Given Losartan Potassium (Losartan 50 Mg Tab) 50 mg PO HS [facility] Last Admin: 03/19/23 21:26 Dose: 50 mg Miscellaneous Information (Rx Info: Iv Contrast Was Given 1 Each Misc) 1 each MISCELLANE DAILY PRN PRN Reason: Per Protocol Stop: 03/22/23 12:57 Multivitamins (Multivitamins, Thera 1 Each Tab) 1 each PO DAILY [facility] Last Admin: 03/20/23 13:31 Dose: Not Given Nitroglycerin (Nitroglycerin Sl Tabs 0.4 Mg Tab) 0.4 mg SUBLINGUAL Q5M PRN PRN Reason: Chest Pain Nitroglycerin (Nitroglycerin Sl Tabs 0.4 Mg Tab) 0.4 mg SUBLINGUAL Q5M PRN PRN Reason: Chest Pain Social history: Patient smoked one pack or weak for about 20 years stopped about 35 years ago. 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 . Physical examination: VITAL SIGNS: 87.9, 36, 16, 140/78, 34% room air GENERAL: Laying in bed, comfortable EYES: Pupils equal. Conjunctiva normal. HEENT: External appearance of nose and ears normal, oral cavity grossly normal. NECK: JVD not raised; masses not palpable. HEART: First and second heart sounds are normal; no edema. LUNGS: Respiratory rate normal; clear to auscultation. ABDOMEN: Soft, nontender, liver spleen not palpable, no masses palpable. Right groin-transvenous pacemaker PSYCH: Alert and oriented x3; mood and affect normal. MUSCULOSKELETAL:No Clubbing/cyanosis;muscles-grossly intact INVESTIGATIONS, reviewed in the clinical context: Cardiac catheterization: Minimal CAD Stress echocardiogram: No EKG evidence of ischemia. Frequency of PVCs did increase. Episode of nonsustained polymorphic VT originating from the inferior wall of the left ventricle. Possible inferior wall hypokinesis at peak exercise. 2-D echocardiogram: EF 55-60%. March 17: Potassium 4.4 creatinine 1.15 White count 8.3 hemoglobin 16.3 platelets 240 sodium 139 potassium 4.8 creatinine 1.06 Troponin I 0.012, 0.014 TSH 1.7 EKG tracing personally reviewed by [email or web address] AV block. Chest x-ray film personally reviewed by me-borderline cardiomegaly Assessment and plan: -Essential hypertension, Amlodipine 5 mg . losartan. -Mobitz type 2 Second-degree AV block, / third-degree heart block.: Not improving Stress echocardiogram possibly suggesting of inferior wall hypokinesia cardiac catheterization -unremarkable Pacemaker tomorrow -Diabetes mellitus type 2 on oral hypoglycemic Glucophage XL-hold. Follow Accu-Cheks and sliding scale -Hyperlipidemia Zocor 40 mg daily at bedtime Discussed with patient. Pacemaker tomorrow. Past Medical History Past Medical History: Cancer, Diabetes Mellitus, Eye Disorder, Hypertension, Osteoarthritis (OA) Additional Past Medical History / Comment(s): hx. skin cancer, cataracts History of Any Multi-Drug Resistant Organisms: None Reported Past Surgical History: Hernia Repair, Orthopedic Surgery Additional Past Surgical History / Comment(s): knee surg. as a teen, arthroscopy right knee, retinal surg., rt cataract Past Anesthesia/Blood Transfusion Reactions: No Reported Reaction Past Psychological History: No Psychological Hx Reported Smoking Status: Former smoker Past Alcohol Use History: Occasional Past Drug Use History: None Reported
[2023-03-20] MEDS: LOSARTAN 50 MG TAB PO SCH (21:02)
[2023-03-20] MEDS: ATORVASTATIN 20 MG TAB PO SCH (21:05)
[2023-03-21 04:41] LABS: Basophils # (A) 0.1 k/uL (0-0.2); Basophils % (A) 1 %; Eosinophils # (A) 0.2 k/uL (0-0.7); Eosinophils % (A) 2 %; HCT 48.9 % (39.0-53.0); HGB 16.4 gm/dL (13.0-17.5); Lymphocytes # (A) 2.1 k/uL (1.0-4.8); Lymphocytes % (A) 25 %; MCHC 33.4 g/dL (31.0-37.0); MCV 89.7 fL (80.0-100.0); Mean Platelet Volume 8.3; Monocytes # (A) 0.6 k/uL (0-1.0); Monocytes % (A) 7 %; Neutrophils # (A) 5.1 k/uL (1.3-7.7); Neutrophils % (A) 63 %; Platelet Count 245 k/uL (150-450); RBC 5.45 m/uL (4.30-5.90); WBC 8.1 k/uL (3.8-10.6)
[2023-03-21 04:55] LABS: African American GFR (CKD) 82 (>60 ml/min/1.73 sqM); Anion Gap 8 mmol/L; Blood Urea Nitrogen 16 mg/dL (9-20); Calcium 8.9 mg/dL (8.4-10.2); Carbon Dioxide 24 mmol/L (22-30); Chloride 105 mmol/L (98-107); Glucose 131 mg/dL (74-99); Non-African American GFR(CKD) 71 (>60 ml/min/1.73 sqM); Potassium 4.4 mmol/L (3.5-5.1); Sodium 137 mmol/L (137-145)
[2023-03-21 05:02] LABS: Partial Thromboplastin Time 22.6 sec (22.0-30.0); Prothrombin Time 10.7 sec (10.0-12.5)
[2023-03-21 06:52] LABS: Glucose,Whole Blood 127 mg/dL (70-110)
[2023-03-21] MEDS ORDERED: ceFAZolin 1 GM in SODIUM CHLORIDE 0.9% IRRIG BTL 250 ML IRRIGATION PRN (07:00)
[2023-03-21] MEDS: INSULIN ASPART (NovoLOG) 100 UNIT/ML VIAL SQ SCH ×3 (07:01→17:46)
--- NOTE | 2023-03-21 07:27 | P.PN ---
Subjective Progress Note Date: 03/21/23 PROGRESS NOTE The patient is a 72-year-old male with a known history of hypertension, hyperlipidemia and diabetes who presented with bradycardia. He had episodes of second-degree AV block Mobitz 2 as well as a third degree AV block. He underwent temporary pacemaker placement and cardiac catheterization yesterday that showed no evidence of significant obstructive disease. He is scheduled to undergo permanent pacemaker implantation today. He is doing well, he denies any chest discomfort, dizziness or palpitations. He denies any nausea or vomiting. His blood pressure has been under reasonable control. Medications: Aspirin, losartan 50 mg daily, Lipitor 20 mg daily. Insulin PHYSICAL EXAMINATION: Blood pressure 146/69 heart rate 32 LUNGS: Clear to auscultation HEART: Regular rate and rhythm, S1, S2. No S3. Systolic ejection murmur ABDOMEN: Soft, nontender, no organomegaly EXTREMETIES: No edema, right radial pulse intact, temperature pacemaker in the right femoral vein dry LAB: Potassium 4.4, hemoglobin 16.4, BUN 16, creatinine 1.04 IMPRESSION: 1. Episodes of second-degree AV block Mobitz 2 and third degree AV block 2. Hypertension 3. Hyperlipidemia 4. And diabetes mellitus PLAN: 1. Proceed with permanent pacemaker implantation today 2. Continue other treatment 3. Increase physical activity after pacemaker 4. If stable probable discharge in 24 hours Objective - Vital Signs Vital signs: Vital Signs Temp 97.8 F 03/21/23 04:00 Pulse 46 L 03/21/23 07:00 Resp 14 03/21/23 07:00 BP 146/69 03/21/23 07:00 Pulse Ox 97 03/21/23 07:00 FiO2 Intake & Output 03/20/23 03/21/23 03/21/23 18:59 06:59 18:59 Intake Total 1130 650 50 Output Total 500 500 Balance 630 150 50 Weight 105.8 kg Intake: IV 100 Intake, IV Titration 550 600 50 Amount Sodium Chloride 0.9% 1, 450 000 ml @ 150 mls/hr IV . Q6H40M MAGGIE Rx#:[id number] Sodium Chloride 0.9% 1, 100 600 50 000 ml @ 50 mls/hr IV . Q20H MAGGIE Rx#:[id number] Oral 480 50 Output: Urine 500 500 Other: Voiding Method Toilet Urinal # Voids 1 - Labs CBC & Chem 7: 03/21/23 03:32 03/21/23 03:32 Labs: Abnormal Lab Results - Last 24 Hours (Table) 03/20/23 03/20/23 03/20/23 Range/Units 09:37 11:39 13:19 Glucose 140 H (74-99) mg/dL POC Glucose (mg/dL) 125 H 134 H (70-110) mg/dL 03/20/23 03/20/23 03/21/23 Range/Units 16:53 20:32 03:32 Glucose 131 H (74-99) mg/dL POC Glucose (mg/dL) 145 H 133 H (70-110) mg/dL 03/21/23 Range/Units 06:51 Glucose (74-99) mg/dL POC Glucose (mg/dL) 127 H (70-110) mg/dL
[2023-03-21 08:25] LABS: Glucose,Whole Blood 127 mg/dL (70-110)
[2023-03-21] MEDS ORDERED: VANCOMYCIN 1,500 MG in SODIUM CHLORIDE 0.9% 250 ML IVPB ONE (09:00)
[2023-03-21] MEDS ORDERED: fentaNYL (PF) 50 MCG/ML 2 ML AMP ONE (09:39)
[2023-03-21] MEDS ORDERED: MIDAZOLAM 2 MG/2 ML VIAL ONE (09:39)
[2023-03-21] MEDS ORDERED: HYDROmorphone (PF) 1 MG/ML ONE (09:39)
[2023-03-21] MEDS ORDERED: ONDANSETRON 4 MG/2 ML VIAL ONE (09:39)
[2023-03-21] MEDS ORDERED: IV FLUID CONTINUATION 1,000 ML IV ONE (09:43)
[2023-03-21] MEDS ORDERED: IOPAMIDOL-370 100ML BTL INJ ONE (09:56)
[2023-03-21] MEDS ORDERED: LIDOCAINE 1% INJ 10MG/ML (20 ML MDV) ONE ×2 (10:06→10:45)
[2023-03-21] MEDS ORDERED: LIDOCAINE 1% INJ 10MG/ML (20 ML MDV) SQ ONE ×2 (10:30→10:40)
[2023-03-21] MEDS ORDERED: ACETAMINOPHEN IV (For NPO) 1,000 MG in EMPTY BAG 1 BAG IVPB ONE (12:05)
[2023-03-21] MEDS ORDERED: ACETAMINOPHEN TAB 325 MG TAB PO PRN (12:05)
--- NOTE | 2023-03-21 12:17 | P.EPPROC ---
- EP Procedure Note Electrophysiology Procedure Note: Diagnosis Symptomatic bradycardia, unprovoked, no triggering factors secondary to complete heart block Exercise-induced PMVT No significant epicardial coronary artery disease Normal LV function Procedure Dual-chamber pacemaker implantation with conduction system pacing (left bundle pacing) Left upper extremity venogram Plan Metoprolol succinate 50 mrem by mouth daily for suppression of exercise-induced VT/PMVT Hypertension management with maximally tolerated doses of losartan Details Patient was brought to the EP lab in a fasting state. Written informed consent was obtained prior to the procedure. Conscious sedation provided by [facility]. IV antibiotics administered. Local anesthesia administered. A 4 cm incision made in the pectoral area. Subfascial pocket made. Venous accesses obtained Venous sheaths placed. Leads placed in the right heart. 2 sets of pacing cables were used; one for backup temporary pacing and the other for assessment of current of injury and signal analysis. A 52 cm atrial pacing lead was first positioned in the RV apex for temporary pacing during mapping and conduction system pacing Thresholds were interrogated and backup high output pacing was provided This atrial lead was then removed from the right ventricle and later positioned in the right atrial appendage and the permanent lead A deflected sheath was prepped. A coronary sinus decapolar catheter was placed within this sheath. The catheter along with the sheath was then passed into the right heart, the catheter was prolapsed across the tricuspid valve, into the right ventricle and then further into the right ventricular outflow tract across the pulmonic valve into the pulmonary artery. This sheath was slid over this decapolar catheter into the RVOT. Thereafter the catheter last sheath assembly was withdrawn from the RVOT along the septum to the mid septal area. The sheath was appropriately to to map the right ventricular aspect of the septum. The decapolar catheter was withdrawn, the sheath flushed again and the screw-in pacing lead placed within the sheath. Further detailed unipolar pace-mapping of the septum was performed and once the appropriate based morphology was obtained on lead V1, the lead was screwed into the septum. The lead was screwed in 4-5 returns at a time while monitoring the current of injury, the pacing impedance changes and the paced QRS morphology. The stimulus to peak of V6 QRS was measured at each step. Once a QR or rSR pattern of paced QRS in lead V1 was obtained, a left bundle signal was sought. Impedance was measured and thresholds were measured. An impedance drop of 100-200 ohms but above 550 ohms was targeted along with an unchanged vector of the current of injury signal. The final positioning was based on the QRS morphology in lead V1 and a short stimulus to peak of the V6 QRS of less than 90 ms. The sheath was withdrawn, stability of the pacing lead deep in the septum was confirmed on PENA and RAFFY views and the sheath was slipped and an adequate heel was provided for the lead. Unipolar and bipolar electrogram morphology obtained Atrial lead positioned in the right atrial appendage. Sensing, thresholds and impedances measured following positioning and securing the lead in the right atrial appendage Left bundle lead parameters: QR pattern with a stem-V6 of less than 74 ms, threshold 0.5 V at 0.4 ms, pacing impedance of 589 ohms and R waves 12 mV Atrial lead parameters. Thresholds were high with an active fix lead despite excellent position and excellent current of injury. 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
--- NOTE | 2023-03-21 12:21 | P.PRLE ---
RE: Oliverio Miller Dear Dr. Trejo Mr. Miller was admitted with severe bradycardia secondary to advanced AV block that progressed intermittently to third degree heart block with severe bra dycardia On the treadmill he had exercise induced polymorphic VT, nonsustained Coronary angiography revealed no significant epicardial coronary artery disease LV function was normal He underwent implantation of a conduction system pacemaker with left bundle pacing lead instead of an right ventricular lead, since he is likely to pace the right ventricle 100% with standard RV pacing. This could be detrimental to LV function in the future His pacemaker is a dual-chamber system with an atrial lead and a left bundle pacing lead Hopefully this helps preserve his LV function in the long run In addition since he had exercise induced PMVT, I have added metoprolol succinate 50 mgs by mouth daily Thank you for entrusting me with the care of the patient Warm regards Sincerely Kayden Head
--- NOTE | 2023-03-21 12:27 | P.PN ---
Progress Note - Text Successful dual-chamber pacemaker with implantation of a left bundle pacing lead Plan 1 dose of IV antibiotics, chest x-ray and device interrogation Metoprolol succinate 50 mg by mouth daily added since he has exercise-induced PMVT Outpatient maximization losartan Likely discharge tomorrow
[2023-03-21] MEDS: METOPROLOL SUCCINATE (ER) 50 MG TAB.ER.24H PO SCH (12:47)
[2023-03-21] MEDS: ASPIRIN 81 MG PO SCH (12:47)
[2023-03-21] MEDS: MULTIVITAMINS, THERA 1 EACH TAB PO SCH (12:47)
[2023-03-21 12:52] LABS: Glucose,Whole Blood 113 mg/dL (70-110)
[2023-03-21 13:15] VITALS: BMI 31.1
[2023-03-21 16:51] LABS: Glucose,Whole Blood 155 mg/dL (70-110)
--- NOTE | 2023-03-21 19:16 | P.PN ---
Progress Note - Text Progress Note Date: 03/21/23 Chief Complaint: Low heart rate This is a pleasant 72-year-old patient who follows with Dr. Trejo. Chronic stable medical conditions include diabetes mellitus type 2, hypertension, skin cancer. That was removed. Patient went for his regular physical checkup. He was discovered to have a low heart rate. Sent in to the ER. Found a variable block. Patient denies any chest pain palpitation dizziness lightheadedness shortness of breath or tiredness. Cardiology consulted. March 16: Comfortable. Mobitz type 1/2 second-degree AV block. Remains asymptomatic. Patient did undergo 2-D echocardiogram and a stress echocardiogram. Results pending. March 17: Patient remained in second-degree heart block. This evening questioning about third degree heart block. Plan for cartilage and proceed with cardiac catheterization tomorrow. Patient otherwise been asymptomatic. Stress echocardiogram did not show any ECG evidence of ischemia but the frequency is PVCs did increase and there was a episode of nonsustained polymorphic VT. Some suggestion of inferior wall hypokinesis at peak exercise. March 18: Patient remains asymptomatic. Today has been in third-degree heart block most of the day. Plan is for cardiac catheterization on Monday but possibly followed by pacemaker. Discussed with patient and at the bedside. Remains asymptomatic. March 19: Sitting up in bed. Comfortable. No guarding symptoms. Remains in third-degree heart block. Plan for cardiac catheterization tomorrow. March 20: ICU. Underwent cardiac catheterization. No significant CAD. Remains in intermittent type II heart block and complete heart block. 4 pacemaker placement tomorrow. No other symptoms. Transvenous pacemaker. March 21: ICU. Underwent dual-chamber pacemaker placement. Postprocedure comfortable. No chest pain or short of breath. On Toprol-XL. Active Medications Acetaminophen (Acetaminophen Tab 325 Mg Tab) 650 mg PO Q6HR PRN PRN Reason: Mild Pain (Scale 1 to 3) Alprazolam (Alprazolam 0.25 Mg Tab) 0.25 mg PO Q6HR PRN PRN Reason: Mild Anxiety Alprazolam (Alprazolam 0.5 Mg Tab) 0.5 mg PO Q6HR PRN PRN Reason: Moderate Anxiety Aspirin (Aspirin 81 Mg) 81 mg PO DAILY [facility] Last Admin: 03/21/23 12:47 Dose: 81 mg Atorvastatin Calcium (Atorvastatin 20 Mg Tab) 20 mg PO HS [facility] Last Admin: 03/20/23 21:05 Dose: 20 mg Dextrose/Water (Dextrose 50% Syringe 50 Ml) 25 ml IVP PER PROTOCOL PRN; Protocol PRN Reason: Hypoglycemia Dextrose/Water (Dextrose 50% Syringe 50 Ml) 50 ml IVP PER PROTOCOL PRN; Protocol PRN Reason: Hypoglycemia Insulin Aspart (Insulin Aspart (Novolog) 100 Unit/Ml Vial) 0 unit SQ AC-TID [facility]; Protocol Last Admin: 03/21/23 17:46 Dose: Not Given Losartan Potassium (Losartan 50 Mg Tab) 50 mg PO [facility] Last Admin: 03/20/23 21:02 Dose: 50 mg Metoprolol Succinate (Metoprolol Succinate (Er) 50 Mg Tab.Er.24h) 50 mg PO DAILY [facility] Last Admin: 03/21/23 12:47 Dose: 50 mg Miscellaneous Information (Rx Info: Iv Contrast Was Given 1 Each Misc) 1 each MISCELLANE DAILY PRN PRN Reason: Per Protocol Stop: 03/22/23 12:57 Multivitamins (Multivitamins, Thera 1 Each Tab) 1 each PO DAILY [facility] Last Admin: 03/21/23 12:47 Dose: 1 each Nitroglycerin (Nitroglycerin Sl Tabs 0.4 Mg Tab) 0.4 mg SUBLINGUAL Q5M PRN PRN Reason: Chest Pain Nitroglycerin (Nitroglycerin Sl Tabs 0.4 Mg Tab) 0.4 mg SUBLINGUAL Q5M PRN PRN Reason: Chest Pain Sodium Chloride (Sodium Chloride 0.9% Flush 10 Ml Syringe) 10 ml IV Q12HR [facility] Social history: Patient smoked one pack or weak for about 20 years stopped about 35 years ago. 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 . Physical examination: VITAL SIGNS: 98.4, 59, 18, 06/18/1996, 92% room air GENERAL: Laying in bed, comfortable EYES: Pupils equal. Conjunctiva normal. HEENT: External appearance of nose and ears normal, oral cavity grossly normal. NECK: JVD not raised; masses not palpable. HEART: First and second heart sounds are normal; no edema. LUNGS: Respiratory rate normal; clear to auscultation. ABDOMEN: Soft, nontender, liver spleen not palpable, no masses palpable. Right groin-transvenous pacemaker PSYCH: Alert and oriented x3; mood and affect normal. MUSCULOSKELETAL:No Clubbing/cyanosis;muscles-grossly intact INVESTIGATIONS, reviewed in the clinical context: Cardiac catheterization: Minimal CAD Stress echocardiogram: No EKG evidence of ischemia. Frequency of PVCs did increase. Episode of nonsustained polymorphic VT originating from the inferior wall of the left ventricle. Possible inferior wall hypokinesis at peak exercise. 2-D echocardiogram: EF 55-60%. March 17: Potassium 4.4 creatinine 1.15 White count 8.3 hemoglobin 16.3 platelets 240 sodium 139 potassium 4.8 creatinine 1.06 Troponin I 0.012, 0.014 TSH 1.7 EKG tracing personally reviewed by [id number] AV block. Chest x-ray film personally reviewed by me-borderline cardiomegaly Assessment and plan: -Essential hypertension, Toprol-XL 50 mg a day. losartan 50 mg daily at bedtime. -Mobitz type 2 Second-degree AV block, / third-degree heart block.: Stress echocardiogram possibly suggesting of inferior wall hypokinesia cardiac catheterization -unremarkable Dual-chamber pacemaker placed today. -Diabetes mellitus type 2 on oral hypoglycemic Glucophage XL-hold. Follow Accu-Cheks and sliding scale -Hyperlipidemia Zocor 40 mg daily at bedtime Discussed with patient. Hopefully discharge tomorrow
[2023-03-21 20:38] LABS: Glucose,Whole Blood 118 mg/dL (70-110)
[2023-03-21] MEDS: ATORVASTATIN 20 MG TAB PO SCH (20:51)
[2023-03-22] MEDS: INSULIN ASPART (NovoLOG) 100 UNIT/ML VIAL SQ SCH (07:07)
--- NOTE | 2023-03-22 07:21 | P.PN ---
Subjective Progress Note Date: 03/22/23 PROGRESS NOTE The patient is a 72-year-old male with a known history of hypertension, hyperlipidemia and diabetes who presented with bradycardia. He had episodes of second-degree AV block Mobitz 2 as well as a third degree AV block. He underwent temporary pacemaker placement and cardiac catheterization yesterday that showed no evidence of significant obstructive disease. He is scheduled to undergo permanent pacemaker implantation today. He is doing well, he denies any chest discomfort, dizziness or palpitations. He denies any nausea or vomiting. His blood pressure has been under reasonable control. March 22: The patient underwent permanent pacemaker implantation yesterday. He is feeling well this morning. He denies any chest discomfort, dizziness or palpitations. He denies any nausea or vomiting. He is paced with no evidence of pacemaker malfunction. His chest x-ray shows no evidence of pneumothorax. Medications: Aspirin, losartan 50 mg daily, Lipitor 20 mg daily. Insulin, Toprol-XL 50 mg daily. PHYSICAL EXAMINATION: Blood pressure 137/80 heart rate 50 LUNGS: Clear to auscultation, pacemaker site clean HEART: Regular rate and rhythm, S1, S2. No S3. Systolic ejection murmur ABDOMEN: Soft, nontender, no organomegaly EXTREMETIES: No edema, right radial pulse intact, LAB: Chest x-ray with no evidence of pneumothorax IMPRESSION: 1. Episodes of second-degree AV block Mobitz 2 and third degree AV block, post pacemaker implantation 2. Hypertension 3. Hyperlipidemia 4. diabetes mellitus PLAN: 1. Pacemaker interrogation 2. Increase physical activity and if pacemaker interrogation normal discharged home today and follow-up in one week. Objective - Vital Signs Vital signs: Vital Signs Temp 97.6 F 03/22/23 04:00 Pulse 49 L 03/22/23 06:00 Resp 13 03/22/23 06:00 BP 137/80 03/22/23 06:00 Pulse Ox 91 L 03/22/23 06:00 FiO2 Intake & Output 03/21/23 03/22/23 03/22/23 18:59 06:59 18:59 Intake Total 1310 570 Balance 1310 570 Weight 104.33 kg 103.7 kg Intake: IV 300 Intake, IV Titration 650 Amount Sodium Chloride 0.9% 1, 100 000 ml @ 50 mls/hr IV . Q20H [facility] Rx#:[id number] Vancomycin 1,500 mg In 500 Sodium Chloride 0.9% 250 ml @ 125 mls/hr IVPB ONCE ONE Rx#:[id number] ceFAZolin 2 gm In Sodium 50 Chloride 0.9% 50 ml @ 100 mls/hr IVPB Q6H [facility] Rx#: [id number] Oral 360 570 Other: Voiding Method Toilet Toilet # Voids 1 1 1 # Bowel Movements 1 - Labs CBC & Chem 7: 03/21/23 03:32 03/21/23 03:32 Labs: Abnormal Lab Results - Last 24 Hours (Table) 03/21/23 03/21/23 03/21/23 Range/Units 08:22 12:50 16:49 POC Glucose (mg/dL) 127 H 113 H 155 H (70-110) mg/dL 03/21/23 Range/Units 20:37 POC Glucose (mg/dL) 118 H (70-110) mg/dL
[2023-03-22] MEDS: ASPIRIN 81 MG PO SCH (08:13)
[2023-03-22] MEDS: MULTIVITAMINS, THERA 1 EACH TAB PO SCH (08:13)
[2023-03-22] MEDS: METOPROLOL SUCCINATE (ER) 50 MG TAB.ER.24H PO SCH (08:13)
--- NOTE | 2023-03-22 08:31 | XR ---
EXAMINATION TYPE: XR chest 2V DATE OF EXAM: 03/22/2023 COMPARISON: 03/15/2023 TECHNIQUE: PA and lateral views submitted. HISTORY: Lead placement check FINDINGS: The lungs are clear and there is no pneumothorax, pleural effusion, or focal pneumonia. Heart size normal and no overt failure. Osseous structures demonstrate hypertrophic and degenerative changes of the spine. Underlying COPD. There is a dual-lead pacemaker with proximal lead overlying the right atrium and distally overlying t he right ventricle. IMPRESSION: 1. Cardiac device appears in good position with no sizable 2. COPD
[2023-03-22 10:09] VITALS: PULSE 49; RESP 12; TEMP 98.8
[2023-03-22 11:06] VITALS: BP 135/85
[2023-03-22 11:06] LABS: Glucose,Whole Blood 119 mg/dL (70-110)
--- NOTE | 2023-03-22 22:45 | P.DS ---
Providers Date of admission: 03/15/23 13:58 Expected date of discharge: 03/22/23 Attending physician: Ezequiel Garcia Consults: 03/15/23 13:58 Consult Physician Urgent Consulting Provider: [facility] Consult Reason/Comments: Sinus bradycardia Do you want consulting provider notified?: Yes Primary care physician: Oliverio Trejo [facility] Course: Chief Complaint: Low heart rate This is a pleasant 72-year-old patient who follows with Dr. Trejo. Chronic stable medical conditions include diabetes mellitus type 2, hypertension, skin cancer. That was removed. Patient went for his regular physical checkup. He was discovered to have a low heart rate. Sent in to the ER. Found a variable block. Patient denies any chest pain palpitation dizziness lightheadedness shortness of breath or tiredness. Cardiology consulted. March 16: Comfortable. Mobitz type 1/2 second-degree AV block. Remains asymptomatic. Patient did undergo 2-D echocardiogram and a stress echocardiogram. Results pending. March 17: Patient remained in second-degree heart block. This evening questioning about third degree heart block. Plan for cartilage and proceed with cardiac catheterization tomorrow. Patient otherwise been asymptomatic. Stress echocardiogram did not show any ECG evidence of ischemia but the frequency is PVCs did increase and there was a episode of nonsustained polymorphic VT. Some suggestion of inferior wall hypokinesis at peak exercise. March 18: Patient remains asymptomatic. Today has been in third-degree heart block most of the day. Plan is for cardiac catheterization on Monday but possibly followed by pacemaker. Discussed with patient and at the bedside. Remains asymptomatic. March 19: Sitting up in bed. Comfortable. No guarding symptoms. Remains in third-degree heart block. Plan for cardiac catheterization tomorrow. March 20: ICU. Underwent cardiac catheterization. No significant CAD. Remains in intermittent type II heart block and complete heart block. 4 pacemaker placement tomorrow. No other symptoms. Transvenous pacemaker. March 21: ICU. Underwent dual-chamber pacemaker placement. Postprocedure comfortable. No chest pain or short of breath. On Toprol-XL. March 22: Patient doing well. Up and about. No cardiac symptoms. He'll follow-up with cardiology. Questions answered. Social history: Patient smoked one pack or weak for about 20 years stopped about 35 years ago. 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 . Physical examination: VITAL SIGNS: 98.8, 52, 14, 142/74, 94% room air GENERAL: Comfortable. Left chest wall pacemaker EYES: Pupils equal. Conjunctiva normal. HEENT: External appearance of nose and ears normal, oral cavity grossly normal. NECK: JVD not raised; masses not palpable. HEART: First and second heart sounds are normal; no edema. LUNGS: Respiratory rate normal; clear to auscultation. ABDOMEN: Soft, nontender, liver spleen not palpable, no masses palpable. Right groin-transvenous pacemaker PSYCH: Alert and oriented x3; mood and affect normal. MUSCULOSKELETAL:No Clubbing/cyanosis;muscles-grossly intact INVESTIGATIONS, reviewed in the clinical context: Cardiac catheterization: Minimal CAD Stress echocardiogram: No EKG evidence of ischemia. Frequency of PVCs did increase. Episode of nonsustained polymorphic VT originating from the inferior wall of the left ventricle. Possible inferior wall hypokinesis at peak exercise. 2-D echocardiogram: EF 55-60%. March 17: Potassium 4.4 creatinine 1.15 White count 8.3 hemoglobin 16.3 platelets 240 sodium 139 potassium 4.8 creatinine 1.06 Troponin I 0.012, 0.014 TSH 1.7 EKG tracing personally reviewed by [id number] AV block. Chest x-ray film personally reviewed by me-borderline cardiomegaly Assessment and plan: -Essential hypertension, Toprol-XL 50 mg a day. losartan 50 mg daily at bedtime. -Mobitz type 2 Second-degree AV block, / third-degree heart block.: Stress echocardiogram possibly suggesting of inferior wall hypokinesia cardiac catheterization -unremarkable Dual-chamber pacemaker placed -Diabetes mellitus type 2 on oral hypoglycemic Glucophage XL-hold. Follow Accu-Cheks and sliding scale -Hyperlipidemia Zocor 40 mg daily at bedtime Disposition: Home Plan - Discharge Summary Discharge Rx Participant: Yes New Discharge Prescriptions: New Aspirin 81 mg PO DAILY tab Metoprolol Succinate (ER) [Toprol XL] 50 mg PO DAILY #90 tab Continue Losartan [Cozaar] 50 mg PO HS Simvastatin [Zocor] 40 mg PO HS [place]-3 Fatty Acids [[place]-3] 1,000 mg PO DAILY Glucos Sul 2Kcl/MSM/Chond/C/Mn [Glucosamine Chondroitin Cap] 1 cap PO BID Sildenafil Citrate [Viagra] 100 mg PO DAILY PRN PRN Reason: SEXUAL ACTIVITY metFORMIN HCL ER [Glucophage XR] 500 mg PO HS Multivit-Mins/Iron/Folic/Lycop [Centrum Men's Tablet] 1 tab PO DAILY Magnesium Citrate Gummies 600 mg PO HS No Action Senior Probiotic 1 tab PO HS Berberine 600 mg PO DAILY Discharge Medication List Glucos Sul 2Kcl/MSM/Chond/C/Mn [Glucosamine Chondroitin Cap] 1 cap PO BID 03/11/19 [History] Losartan [Cozaar] 50 mg PO HS 03/11/19 [History] [place]-3 Fatty Acids [[place]-3] 1,000 mg PO DAILY 03/11/19 [History] Simvastatin [Zocor] 40 mg PO HS 03/11/19 [History] Berberine 600 mg PO DAILY 03/15/23 [History] Magnesium Citrate Gummies 600 mg PO HS 03/15/23 [History] Multivit-Mins/Iron/Folic/Lycop [Centrum Men's Tablet] 1 tab PO DAILY 03/15/23 [History] Senior Probiotic 1 tab PO HS 03/15/23 [History] Sildenafil Citrate [Viagra] 100 mg PO DAILY PRN 03/15/23 [History] metFORMIN HCL ER [Glucophage XR] 500 mg PO HS 03/15/23 [History] Aspirin 81 mg PO DAILY tab 03/17/23 [Rx] Metoprolol Succinate (ER) [Toprol XL] 50 mg PO DAILY #90 tab 03/21/23 [Rx] Follow up Appointment(s)/Referral(s): Chance Bonilla MD [Medical Doctor] - 03/30/23 4:00 pm (Device clinic follow-up in 1 week Follow-up with Dr. Flores in 2-3 weeks Must be discharged home on beta blockers, 50 mg metoprolol succinate once daily) Rae Wiggins MD [STAFF PHYSICIAN] - As Needed (Cardiology office will call you with an appointment. Appointment to discuss and schedule outpatient heart catheterization per Dr. Bonilla.) Oliverio Trejo MD [Primary Care Provider] - 1-2 days (Please call to make an appointment.) Patient Instructions/Handouts: Heart Block (DC), Bradycardia (DC), Pacemaker (DC) Discharge Disposition: HOME SELF-CARE
== END 2023-03-22 12:41 | disposition home or self-care (01) | DRG 244 ==
LOC: EC 11:53 → 6NMEDSUR 13:58 → 3SCARD 15:09 → 2SICU 03-20 12:20
PROVIDERS: ADMIT Hospitalist; ATTEND Hospitalist
PROC: 4A023N7 Measurement of Cardiac Sampling and Pressure, Left Heart, Percutaneous Approach (ICD-10-PCS; 2023-03-20)
PROC: 02HK3JZ Insertion of Pacemaker Lead into Right Ventricle, Percutaneous Approach (ICD-10-PCS; 2023-03-20)
PROC: B2111ZZ Fluoroscopy of Multiple Coronary Arteries using Low Osmolar Contrast (ICD-10-PCS; 2023-03-20)
PROC: 5A1213Z Performance of Cardiac Pacing, Intermittent (ICD-10-PCS; 2023-03-20)
PROC: 02H63JZ Insertion of Pacemaker Lead into Right Atrium, Percutaneous Approach (ICD-10-PCS; 2023-03-21)
PROC: 02PA3MZ Removal of Cardiac Lead from Heart, Percutaneous Approach (ICD-10-PCS; 2023-03-21)
PROC: 02HK3JZ Insertion of Pacemaker Lead into Right Ventricle, Percutaneous Approach (ICD-10-PCS; 2023-03-21)
PROC: 02K83ZZ Map Conduction Mechanism, Percutaneous Approach (ICD-10-PCS; 2023-03-21)
PROC: 0JH606Z Insertion of Pacemaker, Dual Chamber into Chest Subcutaneous Tissue and Fascia, Open Approach (ICD-10-PCS; principal; 2023-03-21 12:55)
DX: I44.2 Atrioventricular block, complete (principal); I47.29 Other ventricular tachycardia; I11.9 Hypertensive heart disease without heart failure; E11.9 Type 2 diabetes mellitus without complications; E66.9 Obesity, unspecified; E78.00 Pure hypercholesterolemia, unspecified; M19.90 Unspecified osteoarthritis, unspecified site; I45.89 Other specified conduction disorders; Z20.822 Contact with and (suspected) exposure to COVID-19; Z28.310 Unvaccinated for COVID-19; Z68.31 Body mass index [BMI] 31.0-31.9, adult; Z85.828 Personal history of other malignant neoplasm of skin; Z87.891 Personal history of nicotine dependence; Z79.84 Long term (current) use of oral hypoglycemic drugs; Z79.899 Other long term (current) drug therapy
CPT/HCPCS: 33208; 33210; 36415; 71046; 80048; 80053; 80061; 83735; 84443; 84484; 85025; 85610; 85730; 87635; 93005; 93270; 93306; 93351; 93458; 99285

== ENCOUNTER → 2023-09-11 | Outpatient (CLI) | payer MEDICARE ==
[2023-09-11 10:59] LABS: HCT 51.3 % (39.6-50.0); HGB 16.8 g/dL (13.0-17.0); MCH 28.9 pg (27.0-32.0); MCHC 32.7 g/dL (32.0-37.0); MCV 88.1 FL (80.0-97.0); Mean Platelet Volume 10.6 FL (9.5-12.2); NRBC Per 100 WBC 0 X 10*3/uL (0.00-0.01); Platelet Count 273 X 10*3/uL (140-440); RBC 5.82 X 10*6/uL (4.40-5.60); RDW 12.9 % (11.5-14.5); WBC 7.61 X 10*3/uL (4.50-10.00)
[2023-09-11 11:20] LABS: ALT 35 U/L (10-49); AST 22 U/L (14-35); Albumin 4.5 g/dL (3.8-4.9); Albumin/Globulin Ratio 1.73 Ratio (1.60-3.17); Alkaline Phosphatase 92 U/L (41-126); BUN/Creat Ratio 9.38 Ratio (12.00-20.00); Blood Urea Nitrogen 12.2 mg/dL (9.0-27.0); Calcium 10.2 mg/dL (8.7-10.3); Carbon Dioxide 27.5 mmol/L (21.6-31.8); Chloride 102 mmol/L (96-109); Chol/HDL Ratio 4.37 Ratio; Globulin 2.6 g/dL (1.6-3.3); Glucose 170 mg/dL (70-110); Potassium 4.7 mmol/L (3.5-5.5); Sodium 141 mmol/L (135-145); Total Bilirubin 0.5 mg/dL (0.3-1.2); Total Protein 7.1 g/dL (6.2-8.2)
== END | disposition home or self-care (01) ==
LOC: LABWHC1 07:38
PROVIDERS: ATTEND Student in an Organized Health Care Education/Training Program
DX: E11.9 Type 2 diabetes mellitus without complications (principal); E78.5 Hyperlipidemia, unspecified
CPT/HCPCS: 36415; 80053; 80061; 83036; 83721; 84443; 85027

== ENCOUNTER 2024-06-03 20:17 | Inpatient (IN) | payer MEDICARE ==
[2024-06-03] MEDS: SODIUM CHLORIDE 0.9% 1,000 ML IV STA (21:01)
[2024-06-03 21:06] LABS: Basophils # (A) 0.1 k/uL (0-0.2); Basophils % (A) 1 %; Eosinophils # (A) 0.1 k/uL (0-0.7); Eosinophils % (A) 1 %; HCT 51.1 % (39.0-53.0); HGB 16.7 gm/dL (13.0-17.5); Lymphocytes # (A) 1.6 k/uL (1.0-4.8); Lymphocytes % (A) 13 %; MCH 29.4 pg (25.0-35.0); MCHC 32.6 g/dL (31.0-37.0); MCV 90.1 fL (80.0-100.0); Mean Platelet Volume 7.9; Monocytes # (A) 0.7 k/uL (0-1.0); Monocytes % (A) 5 %; Neutrophils # (A) 9.9 k/uL (1.3-7.7); Neutrophils % (A) 79 %; Platelet Count 203 k/uL (150-450); RBC 5.67 m/uL (4.30-5.90); WBC 12.6 k/uL (3.8-10.6)
[2024-06-03 21:17] LABS: ALT 169 U/L (4-49); AST 172 U/L (17-59); African American GFR (CKD) 76 (>60 ml/min/1.73 sqM); Albumin 4.2 g/dL (3.5-5.0); Alkaline Phosphatase 95 U/L (38-126); Anion Gap 16 mmol/L; Blood Urea Nitrogen 24 mg/dL (9-20); Calcium 9.1 mg/dL (8.4-10.2); Carbon Dioxide 18 mmol/L (22-30); Chloride 101 mmol/L (98-107); Glucose 196 mg/dL (74-99); Magnesium 1.9 mg/dL (1.6-2.3); Non-African American GFR(CKD) 66 (>60 ml/min/1.73 sqM); Potassium 4.6 mmol/L (3.5-5.1); Sodium 135 mmol/L (137-145); Total Bilirubin 0.4 mg/dL (0.2-1.3); Total Protein 6.6 g/dL (6.3-8.2)
[2024-06-03 21:22] LABS: INR 0.9 (<1.2); Prothrombin Time 10.3 sec (10.0-12.5)
[2024-06-03 21:30] LABS: Partial Thromboplastin Time 21.3 sec (22.0-30.0)
[2024-06-03] MEDS ORDERED: HEPARIN SODIUM 1,000 UN/ML (10ML VL) IV PRN (21:51)
--- NOTE | 2024-06-03 21:56 | ED ---
General Adult HPI - General Chief complaint: Syncope Stated complaint: Near Syncope Time Seen by Provider: 06/03/24 20:27 Source: patient, EMS Mode of arrival: EMS Limitations: no limitations - History of Present Illness Initial comments: Patient is a 73-year-old gentleman the past medical history bradycardia with implantable pacemaker defibrillator, hypertension presenting today for your syncope. Patient returned home from dinner this evening with his and upon returning home felt short of breath and lightheaded. He went to the bathroom and told his he felt like he was going to be sick and was nauseous. He did not have any episodes of emesis and got to the couch where he sat down and his rolled eyes rolled to the back of his head, his state he did not pass out completely though he continued looking like this until EMS got to the home. Per patient they had the patient walk through the home and his oxygen "went down" so placed him on oxygen brought to the hospital. Patient has been endorsing shortness of breath with ambulation over the last 2 months. He currently denies any chest pain and is asymptomatic at rest. He denies any cough, fevers or chills, denies recent travel, surgeries or hospitalizations. Denies any a bdominal pain, diarrhea, hematochezia or melena. Denies numbness, weakness or slurred speech. Denies changes in vision. No history of cancer. Is a non- smoker. No lower extremity swelling. Takes baby aspirin daily but is not anticoagulated. - Related Data Home Medications Medication Instructions Recorded Confirmed Glucos Sul 2Kcl/MSM/Chond/C/Mn 2 cap PO DAILY 03/11/19 06/03/24 [Glucosamine Chondroitin Cap] Losartan [Cozaar] 50 mg PO HS 03/11/19 06/03/24 Simvastatin [Zocor] 40 mg PO HS 03/11/19 06/03/24 Berberine 600 mg PO DAILY 03/15/23 06/03/24 Magnesium Citrate Gummies 300 mg PO HS 03/15/23 06/03/24 Multivit-Mins/Iron/Folic/Lycop 1 tab PO HS 03/15/23 06/03/24 [Centrum Men's Tablet] Senior Probiotic 1 tab PO HS 03/15/23 06/03/24 Sildenafil Citrate [Viagra] 100 mg PO DIRECTED PRN 03/15/23 06/03/24 metFORMIN HCL ER [Glucophage XR] 500 mg PO HS 03/15/23 06/03/24 [place]-3 1040mg 1,040 mg PO DAILY 06/03/24 06/03/24 Previous Rx's Medication Instructions Recorded Aspirin 81 mg PO DAILY tab 03/17/23 Metoprolol Succinate (ER) [Toprol 50 mg PO DAILY #90 tab 03/21/23 XL] Allergies Allergy/AdvReac Type Severity Reaction Status Date / Time No Known Allergies Allergy Verified 06/03/24 21:08 Review of Systems ROS Statement: Those systems with pertinent positive or pertinent negative responses have been documented in the HPI. ROS Other: All systems not noted in ROS Statement are negative. Past Medical History Past Medical History: Cancer, Diabetes Mellitus, Eye Disorder, Hypertension, Osteoarthritis (OA) Additional Past Medical History / Comment(s): hx. skin cancer, cataracts History of Any Multi-Drug Resistant Organisms: None Reported Past Surgical History: Hernia Repair, Orthopedic Surgery, Pacemaker Additional Past Surgical History / Comment(s): knee surg. as a teen, arthroscopy right knee, retinal surg., rt cataract Past Anesthesia/Blood Transfusion Reactions: No Reported Reaction Past Psychological History: No Psychological Hx Reported Smoking Status: Former smoker Past Alcohol Use History: Occasional Past Drug Use History: None Reported - Past Family History Mother Family Medical History: No Reported History General Exam - General Exam Comments Initial Comments: PE: CONSTITUTIONAL: No apparent distress, well appearing, nontoxic, resting comfortably SKIN: Warm, dry, no jaundice, hives or petechiae EYES: Pupils are equally round, extraocular movements intact without nystagmus, clear conjunctiva, non-icteric sclera HENT: Normocephalic, atraumatic, moist mucus membranes, oropharynx clear without exudates NECK: , Full range of motion, normal appearance PULMONARY: Clear to auscultation without wheezes, rhonchi, or rales, normal excursion, no accessory muscle use and no stridor CARDIOVASCULAR: Regular rate, rhythm, normal S1 and S2. No appreciated murmurs, rubs or gallops. Strong radial pulses with intact distal perfusion. No lower extremity edema GASTROINTESTINAL: Soft, active bowel sounds throughout, non-tender, non- distended, no palpable masses, no rebound or guarding. No hepatosplenomegaly MUSCULOSKELETAL: Extremities have no gross deformity, no edema, redness, or swelling. No calf swelling NEUROLOGIC:_a/o x 3, GCS 15, normal mentation and speech. Moves all extremities x 4 without motor or sensory deficit PSYCHIATRIC:_normal mood and affect, thought process is clear and linear Limitations: no limitations Course Vital Signs 06/03/24 06/03/24 06/03/24 20:19 20:32 20:49 Temperature 97.6 F Pulse Rate 78 82 Respiratory 18 16 Rate Blood Pressure 143/90 125/90 O2 Sat by Pulse 92 L 94 L 95 Oximetry 06/03/24 06/03/24 06/03/24 21:00 21:55 22:00 Temperature Pulse Rate 81 77 Respiratory 18 16 Rate Blood Pressure 125/90 134/97 134/97 O2 Sat by Pulse 93 L 93 L 96 Oximetry 06/03/24 06/03/24 06/03/24 22:30 22:58 23:00 Temperature Pulse Rate 90 89 Respiratory 16 10 L Rate Blood Pressure 144/100 153/104 153/104 O2 Sat by Pulse 96 96 Oximetry 06/03/24 06/04/24 06/04/24 23:30 00:00 00:11 Temperature Pulse Rate 82 80 80 Respiratory 19 12 18 Rate Blood Pressure 175/120 139/95 154/111 O2 Sat by Pulse 98 Oximetry 06/04/24 06/04/24 06/04/24 00:30 01:00 01:03 Temperature Pulse Rate 76 77 Respiratory 13 18 Rate Blood Pressure 154/111 132/89 138/93 O2 Sat by Pulse 95 97 Oximetry 06/04/24 06/04/24 06/04/24 01:30 02:00 02:05 Temperature Pulse Rate 75 Respiratory 18 Rate Blood Pressure 138/93 136/87 O2 Sat by Pulse 96 95 Oximetry 06/04/24 06/04/24 06/04/24 02:07 02:30 02:40 Temperature Pulse Rate 69 69 69 Respiratory 16 16 Rate Blood Pressure 134/88 183/118 134/88 O2 Sat by Pulse 97 97 99 Oximetry 06/04/24 06/04/24 06/04/24 03:00 03:30 03:52 Temperature Pulse Rate 67 71 70 Respiratory 18 Rate Blood Pressure 134/88 140/94 142/95 O2 Sat by Pulse 97 95 96 Oximetry 06/04/24 06/04/24 06/04/24 04:00 04:10 04:30 Temperature Pulse Rate 65 65 Respiratory 18 Rate Blood Pressure 142/95 149/95 O2 Sat by Pulse 95 96 Oximetry 06/04/24 06/04/24 06/04/24 05:00 05:05 05:30 Temperature Pulse Rate 68 68 61 Respiratory 18 Rate Blood Pressure 140/96 135/86 135/86 O2 Sat by Pulse 94 L 98 97 Oximetry 06/04/24 06/04/24 06/04/24 06:00 06:12 06:30 Temperature Pulse Rate 67 68 76 Respiratory 18 Rate Blood Pressure 138/96 138/94 138/94 O2 Sat by Pulse 97 97 96 Oximetry 06/04/24 06/04/24 06/04/24 07:00 07:30 08:00 Temperature Pulse Rate 71 64 Respiratory Rate Blood Pressure 177/118 135/98 134/99 O2 Sat by Pulse 97 96 97 Oximetry 06/04/24 06/04/24 06/04/24 08:30 09:00 09:30 Temperature Pulse Rate 70 71 Respiratory 22 16 Rate Blood Pressure 137/91 145/102 143/99 O2 Sat by Pulse 92 L 97 98 Oximetry 06/04/24 06/04/24 06/04/24 10:00 10:30 11:00 Temperature Pulse Rate 77 64 71 Respiratory 15 12 11 L Rate Blood Pressure 142/97 147/92 119/84 O2 Sat by Pulse 96 95 98 Oximetry 06/04/24 06/04/24 06/04/24 11:08 11:27 11:30 Temperature 98.5 F Pulse Rate 60 61 65 Respiratory 18 18 14 Rate Blood Pressure 152/97 142/91 142/91 O2 Sat by Pulse 96 96 96 Oximetry 06/04/24 12:13 Temperature Pulse Rate 76 Respiratory 18 Rate Blood Pressure 136/90 O2 Sat by Pulse 96 Oximetry - Reevaluation(s) Reevaluation #1: Reviewed patient CT scan, appears to show bilateral pulmonary emboli, currently awaiting radiologist read, patient's heart rate 80 blood pressure 135 systolic, patient currently comfortable and in no acute distress is mildly hypoxic with pulse ox 86%. Place patient on 2 liters nasal cannula. Ordered high-dose heparin bolus and drip. 06/03/24 21:56 06/04/24 17:12 EKG Findings - EKG Comments: EKG Findings:: Paced rhythm, rate 82 bpm, IL interval 230 ms QRS duration 145 ms QT/QTc 420/459 ms, left axis deviation, questionable [address] elevation in V3, no clear ST depressions, no arrhythmiaCompared to EKG performed on 03/15/2023, T waves flattened in V3 and V4 today when compared to prior Medical Decision Making - Medical Decision Making Was pt. sent in by a medical professional or institution (, PA, CITY ADMINISTRATOR, urgent c are, hospital, or group home...) When possible be specific @ -No Did you speak to anyone other than the patient for history (EMS, parent, family, police, friend...)? What history was obtained from this source I spoke with patient's who assisted in providing history, having witnessed patient's near syncopal event prior to arrival Did you review nursing and triage notes (agree or disagree)? Why? @ -I reviewed and agree with nursing and triage notes Were old charts reviewed (outside hosp., previous admission, EMS record, old EKG, old radiological studies, urgent care reports/EKG's, group home records)? Report findings @Medical records reviewed Differential Diagnosis (chest pain, altered mental status, abdominal pain women, abdominal pain men, vaginal bleeding, weakness, fever, dyspnea, syncope, headache, dizziness, GI bleed, back pain, seizure, CVA, palpatations, mental health, musculoskeletal)? Differential Syncope: Valvular disease, hypertrophic cardiomyopathy, pulmonary embolism, tamponade, tachycardia, bradycardia, NM, hypovolemia, hemorrhage, dissection, anemia, seizure, hypoglycemia this is not meant to be an all-inclusive list. EKG interpreted by me (3pts min.). @ -As above X-rays interpreted by me (1pt min.). @ -None done CT interpreted by me (1pt min.). @As noted above, large bilateral pulmonary emboli U/S interpreted by me (1pt. min.). @ -None done What testing was considered but not performed or refused? (CT, X-rays, U/S, labs)? Why? @ -None What meds were considered but not given or refused? Why? @ -TNK was considered however vital signs stable, no hypotension or tachycardia, case discussed with Dr. Jacobo, offender job retention specialist for [facility], no tNK at this time Did you discuss the management of the patient with other professionals (professionals i.e. , PA, CITY ADMINISTRATOR, lab, RT, psych nurse, 7th grade social studies teacher, straddle truck driver, teacher, juvenile probation officer, rn case mgr)? Give summary This case was discussed with Dr. Goode, cardiology and Odin, critical care DARRIN Was smoking cessation discussed for >3mins.? @ -No Was critical care preformed (if so, how long)? @, Yes, 35 minutes Were there social determinants of health that impacted care today? How? (Homelessness, low income, unemployed, alcoholism, drug addiction, transportation, low edu. Level, literacy, decrease access to med. care, senior care, rehab)? @ -No Was there de-escalation of care discussed even if they declined (Discuss DNR or withdrawal of care, Hospice)? @ -No What co-morbidities impacted this encounter? (DM, HTN, Smoking, COPD, CAD, Cancer, CVA, ARF, Chemo, Hep., AIDS, mental health diagnosis, sleep apnea, morbid obesity)? @ DM, HTN Was patient admitted / discharged? Hospital course, mention meds given and route, prescriptions, significant lab abnormalities, going to OR and other pertinent info. @ Admission- patient is a 73-year-old gentleman presenting today for near syncope, and exertional shortness of breath. Denies chest pain. Patient seen and assessed on arrival, mildly hypoxic with ambulation with pulse ox 89% when ambulated through his room. Pulse ox at rest 94%. States he doesn't quite feel right however denies chest pain. 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 Exam shows lungs clear to auscultation bilaterally, normal S1-S2 on cardiac exam, 2+ radial pulses, no lower extremity edema. Plan for CTA chest, comprehensive labs and a anticipate admission. Reviewed CTA chest, pending radiologist read does appear to show bilateral PE. Blood pressure is stable, troponin is slightly elevated at 0.049 BNP pending. Ordered heparin bolus, drip. Updated patient to findings and plan for admission, agreeable with POC. Paged [facility]. BNP 1830. Discussed case with [facility], Dr. Jacobo, with no tachycardia or hypoten aakash, does not need intervention at this time or appear to be submassive/massive PE. Rec's heparin gtt and echo in the AM. Due to large clot burden I did consult ICU. Discussed with Odin, critical care DARRIN, will evaluate pt. Discussed case with Dr. Kennedy, pt admitted in stable but guarded condition. Undiagnosed new problem with uncertain prognosis? @ -No Drug Therapy requiring intensive monitoring for toxicity (Heparin, Nitro, Insulin, Cardizem)? Heparin Were any procedures done? @ -No Diagnosis/symptom? Submassive bilateral pulmonary embolism Acute, or Chronic, or Acute on Chronic? Acute Uncomplicated (without systemic symptoms) or Complicated (systemic symptoms)? Complicated Side effects of treatment? @ -No Exacerbation, Progression, or Severe Exacerbation? @ -No Poses a threat to life or bodily function? How? (Chest pain, USA, NM, pneumonia, PE, COPD, DKA, ARF, appy, cholecystitis, CVA, Diverticulitis, Homicidal, Suicidal, threat to staff... and all critical care pts) @Yes, could progress to massive PE and cardiac arrest if left untreated - Lab Data Result diagrams: 06/04/24 11:00 06/04/24 11:00 Lab Results 06/03/24 06/03/24 06/03/24 Range/Units 20:45 20:45 20:45 WBC 12.6 H (3.8-10.6) k/uL RBC 5.67 (4.30-5.90) m/uL Hgb 16.7 (13.0-17.5) gm/dL Hct 51.1 (39.0-53.0) % MCV 90.1 (80.0-100.0) fL MCH 29.4 (25.0-35.0) pg MCHC 32.6 (31.0-37.0) g/dL RDW 13.0 (11.5-15.5) % Plt Count 203 (150-450) k/uL MPV 7.9 Neutrophils % 79 % Lymphocytes % 13 % Monocytes % 5 % Eosinophils % 1 % Basophils % 1 % Neutrophils # 9.9 H (1.3-7.7) k/uL Lymphocytes # 1.6 (1.0-4.8) k/uL Monocytes # 0.7 (0-1.0) k/uL Eosinophils # 0.1 (0-0.7) k/uL Basophils # 0.1 (0-0.2) k/uL PT 10.3 (10.0-12.5) sec INR 0.9 (<1.2) APTT 21.3 L (22.0-30.0) sec Sodium 135 L (137-145) mmol/L Potassium 4.6 (3.5-5.1) mmol/L Chloride 101 (98-107) mmol/L Carbon Dioxide 18 L (22-30) mmol/L Anion Gap 16 mmol/L BUN 24 H (9-20) mg/dL Creatinine 1.09 (0.66-1.25) mg/dL Est GFR (CKD-EPI)AfAm 76 (>60 ml/min/1.73 sqM) Est GFR (CKD-EPI)NonAf 66 (>60 ml/min/1.73 sqM) Glucose 196 H (74-99) mg/dL Calcium 9.1 (8.4-10.2) mg/dL Magnesium 1.9 (1.6-2.3) mg/dL Total Bilirubin 0.4 (0.2-1.3) mg/dL AST 172 H (17-59) U/L ALT 169 H (4-49) U/L Alkaline Phosphatase 95 (38-126) U/L Troponin I (0.000-0.034) ng/mL NT-Pro-B Natriuret Pep pg/mL Total Protein 6.6 (6.3-8.2) g/dL Albumin 4.2 (3.5-5.0) g/dL Influenza Type A (PCR) (Not Detectd) Influenza Type B (PCR) (Not Detectd) RSV (PCR) (Not Detectd) SARS-CoV-2 (PCR) (Not Detectd) 06/03/24 06/03/24 06/03/24 Range/Units 20:45 20:45 20:45 WBC (3.8-10.6) k/uL RBC (4.30-5.90) m/uL Hgb (13.0-17.5) gm/dL Hct (39.0-53.0) % MCV (80.0-100.0) fL MCH (25.0-35.0) pg MCHC (31.0-37.0) g/dL RDW (11.5-15.5) % Plt Count (150-450) k/uL MPV Neutrophils % % Lymphocytes % % Monocytes % % Eosinophils % % Basophils % % Neutrophils # (1.3-7.7) k/uL Lymphocytes # (1.0-4.8) k/uL Monocytes # (0-1.0) k/uL Eosinophils # (0-0.7) k/uL Basophils # (0-0.2) k/uL PT (10.0-12.5) sec INR (<1.2) APTT (22.0-30.0) sec Sodium (137-145) mmol/L Potassium (3.5-5.1) mmol/L Chloride (98-107) mmol/L Carbon Dioxide (22-30) mmol/L Anion Gap mmol/L BUN (9-20) mg/dL Creatinine (0.66-1.25) mg/dL Est GFR (CKD-EPI)AfAm (>60 ml/min/1.73 sqM) Est GFR (CKD-EPI)NonAf (>60 ml/min/1.73 sqM) Glucose (74-99) mg/dL Calcium (8.4-10.2) mg/dL Magnesium (1.6-2.3) mg/dL Total Bilirubin (0.2-1.3) mg/dL AST (17-59) U/L ALT (4-49) U/L Alkaline Phosphatase (38-126) U/L Troponin I 0.049 H* (0.000-0.034) ng/mL NT-Pro-B Natriuret Pep 1830 pg/mL Total Protein (6.3-8.2) g/dL Albumin (3.5-5.0) g/dL Influenza Type A (PCR) Not Detected (Not Detectd) Influenza Type B (PCR) Not Detected (Not Detectd) RSV (PCR) Not Detected (Not Detectd) SARS-CoV-2 (PCR) Not Detected (Not Detectd) Disposition Clinical Impression: Bilateral pulmonary embolism Disposition: ADMITTED IP TO THIS [facility] Condition: Stable
--- NOTE | 2024-06-03 22:19 | CT ---
EXAMINATION TYPE: CT chest angio for PE DATE OF EXAM: 06/03/2024 9:46 PM COMPARISON: None. CLINICAL INDICATION: Male, 73 years old with history of hypoxia, near syncope, near syncopal episode, from home TECHNIQUE: CT of the chest is performed on a spiral scan at 2 mm thick sections. Study is performed with intravenous contrast timed for evaluation for pulmonary embolism. This will limit additional po rtions of the evaluation. 3-D MIP images reconstructed by the technologist are reviewed on the compu ter in the coronal and sagittal planes. Contrast used:100mL mL of Isovue 370 with IV Contrast, (none if empty) Oral contrast used: (none if empty) CT DLP: 579.6 mGycm, Automated exposure control for dose reduction was used. FINDINGS: Left upper lobe pulmonary emboli are present. Large pulmonary emboli obstructing left lower lobe pulm onary arteries. Right lower lobe pulmonary artery obstruction is present. Mild right heart strain wit h straitening of the septum and reflux into the inferior vena cava is present. Report was called to [facility] emergency room patient's nurse by Dr. Brar by telephone at the time of interpretation. No mediastinal or hilar adenopathy enlarged by CT criteria is evident. The ascending aorta diameter at the level of the main pulmonary artery is 3.7 cm. The main pulmonary artery diameter at the bifurcation is 3.4 cm. Lung windows are clear. Limited CT sections were through the upper abdomen. Upper abdomen appears unremarkable. IMPRESSION: 1. Large bilateral lower lobe pulmonary emboli mild right heart strain [facility], , 06/03/2024 10:16 PM
[2024-06-03] MEDS: HEPARIN SODIUM 1,000 UN/ML (10ML VL) IV ONE (22:20)
[2024-06-03] MEDS: HEPARIN SOD,PORK IN 0.45% NACL 25,000 UNIT in 0.45% NACL 1 250ML.BAG IV SCH (22:21)
[2024-06-04] MEDS ORDERED: MORPHINE SULFATE 4 MG/ML SYRINGE IV PRN (00:22)
[2024-06-04] MEDS ORDERED: Phosphorus Replacement Protoco 1 EACH MISC MISCELLANE PRN (00:22)
[2024-06-04] MEDS ORDERED: Potassium Replacement Protocol 1 EACH MISC MISCELLANE PRN (00:22)
[2024-06-04] MEDS ORDERED: NALOXONE 0.4 MG/ML 1 ML VIAL IV PRN (00:22)
[2024-06-04] MEDS ORDERED: Magnesium Replacement Protocol 1 EACH MISC MISCELLANE PRN (00:22)
--- NOTE | 2024-06-04 06:48 | P.CNPUL ---
History of Present Illness Consult date: 06/04/24 Requesting physician: Shira Hurt Reason for consult: other (Bilateral PE) Chief complaint: Acute shortness of breath History of present illness: Patient is a 73-year-old male with past medical history segment for diabetes mellitus, hypertension, pacemaker, and remote history of tobacco smoking. Pulmonary consult was placed for bilateral submassive PE. Patient denies any personal or familial history of previous blood clots. Denies prolonged air or car travel, denies recent hospitalizations or immobilization, denies recent trauma, denies recent surgery. Denies unilateral lower extremity swelling. Patient states that he is normally very active, walks approximately 3-1/2 miles yesterday. He was doing well and having no symptoms. Yesterday evening developed severe respiratory distress which was acute and sudden when ambulating to the bathroom. Never completely recovered. Associated with diaphoresis and lightheadedness. Reportedly had a near syncopal event while sitting on the couch. Denies losing consciousness. Denies chest pain or hemoptysis. Similar episode reported several weeks ago. Chest CTA done in the emergency department showing large saddle pulmonary embolism extending into the bilateral lower lobes and left upper lobe with straightening of the interventricular septum and increased RV to LV ratio concerning for right-sided heart strain. Hemodynamics have remained stable, patient has not required any vasopressor support. He did receive an initial 1 L fluid bolus in the ED. He is on 2 L/min nasal cannula. Cardiovascular service was consulted and is aware. Patient was started on high intensity heparin protocol. Patient denies any recent head trauma, epistaxis, hematemesis, melanotic stools, hematochezia. CBC is unremarkable, hemoglobin 16.7 g/dL. aPTT at baseline 21.3. CMP: Sodium 135, potassium 4.6, chloride 101, serum bicarb 18, BUN 24, creatinine 1.09, glucose 196. LFTs mildly elevated. Troponin 0.049. NT proBNP 1830. EKG showing a ventricular paced rhythm at 82 bpm. Negative for influenza, RSV, COVID. I am evaluating this pa tient in the emergency department, room 1. He is on 2 L/min nasal cannula, SpO2 is 98%. Nontachypneic. He is nondistressed. Blood pressure is currently hypertensive and 154/111 mmHg, heart rate is 80 beats per minutes, this is a submassive PE. Heparin is infusing per protocol. Review of Systems Constitutional: Reports fatigue (8), Reports weight loss, Denies chills, Denies fever, Denies poor appetite, Denies weight gain Past Medical History Past Medical History: Cancer, Diabetes Mellitus, Eye Disorder, Hypertension, Osteoarthritis (OA) Additional Past Medical History / Comment(s): hx. skin cancer, cataracts History of Any Multi-Drug Resistant Organisms: None Reported Past Surgical History: Hernia Repair, Orthopedic Surgery, Pacemaker Additional Past Surgical History / Comment(s): knee surg. as a teen, arthroscopy right knee, retinal surg., rt cataract Past Anesthesia/Blood Transfusion Reactions: No Reported Reaction Past Psychological History: No Psychological Hx Reported Smoking Status: Former smoker Past Alcohol Use History: Occasional Past Drug Use History: None Reported - Past Family History Mother Family Medical History: No Reported History Medications and Allergies Home Medications Medication Instructions Recorded Confirmed Type Glucos Sul 2Kcl/MSM/Chond/C/Mn 2 cap PO DAILY 03/11/19 06/03/24 History [Glucosamine Chondroitin Cap] Losartan [Cozaar] 50 mg PO HS 03/11/19 06/03/24 History Simvastatin [Zocor] 40 mg PO HS 03/11/19 06/03/24 History Berberine 600 mg PO DAILY 03/15/23 06/03/24 History Magnesium Citrate Gummies 300 mg PO HS 03/15/23 06/03/24 History Multivit-Mins/Iron/Folic/Lycop 1 tab PO HS 03/15/23 06/03/24 History [Centrum Men's Tablet] Senior Probiotic 1 tab PO HS 03/15/23 06/03/24 History Sildenafil Citrate [Viagra] 100 mg PO DIRECTED PRN 03/15/23 06/03/24 History metFORMIN HCL ER [Glucophage XR] 500 mg PO HS 03/15/23 06/03/24 History Aspirin 81 mg PO DAILY tab 03/17/23 06/03/24 Rx Metoprolol Succinate (ER) [Toprol 50 mg PO DAILY #90 tab 03/21/23 06/03/24 Rx XL] [place]-3 1040mg 1,040 mg PO DAILY 06/03/24 06/03/24 History Allergies Allergy/AdvReac Type Severity Reaction Status Date / Time No Known Allergies Allergy Verified 06/03/24 21:08 Physical Exam Vitals: Vital Signs Temp Pulse Resp BP Pulse Ox 06/04/24 00:11 80 18 154/111 98 06/03/24 22:58 90 16 153/104 96 06/03/24 21:55 81 16 134/97 93 L 06/03/24 20:49 82 16 125/90 95 06/03/24 20:19 97.6 F 78 18 143/90 92 L Intake and Output 06/03/24 06/03/24 06/04/24 14:59 22:59 06:59 Other: Weight 95.708 kg GENERAL EXAM: Alert, pleasant 73-year-old male, on 2 L/min nasal cannula, SpO2 is 98% on bedside monitor, comfortable in no apparent distress. HEAD: Normocephalic and atraumatic EYES: Normal reaction of pupils, equal size. NOSE: Clear with pink turbinates. THROAT: No erythema or exudates. NECK: No masses, no JVD. CHEST: No chest wall deformity. LUNGS: Equal air entry with no crackles, wheeze, rhonchi or dullness. Nontachypneic. No conversational dyspnea or accessory muscle use.. CVS: S1 and S2 normal with no audible murmur, regular rhythm. No extra heart sounds ABDOMEN: No hepatosplenomegaly, active bowel sounds, no guarding or rigidity. SPINE: No scoliosis or deformity SKIN: No rashes CENTRAL NERVOUS SYSTEM: No focal deficits, tone is normal in all 4 extremities. EXTREMITIES: There is no peripheral edema, clubbing, or cyanosis. Peripheral pu lses are intact. Results - Laboratory Findings CBC and BMP: 06/03/24 20:45 06/03/24 20:45 PT/INR, D-dimer PT 10.3 sec (10.0-12.5) 06/03/24 20:45 INR 0.9 (<1.2) 06/03/24 20:45 Abnormal lab findings: Abnormal Labs 06/03/24 06/03/24 06/03/24 20:45 20:45 20:45 WBC 12.6 H Neutrophils # 9.9 H APTT 21.3 L Sodium 135 L Carbon Dioxide 18 L BUN 24 H Glucose 196 H AST 172 H ALT 169 H Troponin I 06/03/24 20:45 WBC Neutrophils # APTT Sodium Carbon Dioxide BUN Glucose AST ALT Troponin I 0.049 H* - Diagnostic Findings Chest x-ray: image reviewed CT scan - chest: image reviewed Assessment and Plan Assessment: Acute bilateral submassive PE, with CT evidence of right-sided heart strain. Chest CTA done in the emergency department showing large saddle pulmonary embolism extending into the bilateral lower lobes and left upper lobe with straightening of the interventricular septum and increased RV to LV ratio concerning for right-sided heart strain. Hemodynamic remained stable Acute hypoxemic respiratory failure, secondary to above History of diabetes mellitus Hypertension History of hyperlipidemia History of complete AV block and permanent pacemaker Remote history of tobacco use Plan: Patient medications, labs, imaging reviewed Continue supplemental oxygen maintain oxygen saturation of 92% or greater. Currently on 2 L/min nasal cannula. SpO2 is 98%. Patient was started on high intensity heparin protocol Obtain transthoracic echocardiogram to further evaluate for RV strain Cardiovascular on-call for possible surgical intervention including EKOS or suction thrombectomy. Reportedly spoke to ER provider earlier. Patient's hemodynamics have remained stable No need for immediate ICU admission; however, this could change if patient is candidate for above-mentioned procedures. Patient can be monitored closely on the cardiac stepdown unit. I have personally seen and examined the patient, performed the documentation and the assessment and plan as written. Number of minutes spent on the visit:20 This dictation was produced using [employer] dictation software please excuse grammatical errors Time with Patient: Greater than 30
[2024-06-04] MEDS: FAMOTIDINE 20 MG TAB PO SCH (08:00)
--- NOTE | 2024-06-04 08:15 | US ---
EXAMINATION TYPE: US venous doppler duplex LE BI DATE OF EXAM: 06/04/2024 7:22 AM COMPARISON: NONE CLINICAL INDICATION: Male, 73 years old with history of rule out DVT; PE, on heparin, Pain TECHNIQUE: The lower extremity deep venous system is examined utilizing real time linear array sonog robinson with graded compression, color doppler sonography, and spectral doppler. SIDE PERFORMED: Bilateral FINDINGS: VESSELS IMAGED: Common Femoral Vein Deep Femoral Vein Greater Saphenous Vein * Femoral Vein Popliteal Vein Small Saphenous Vein * Proximal Calf Veins (* superficial vessels) Right Leg: Negative for DVT, Color Doppler imaging shows patency of the vessels. Spectral waveforms are within normal limits. Left Leg: Negative for DVT, Color Doppler imaging shows patency of the vessels. Spectral waveforms a re within normal limits. IMPRESSION: No evidence for DVT within the bilateral lower extremities imaged from the groin to the upper calves. [facility], , 06/04/2024 8:12 AM
--- NOTE | 2024-06-04 09:03 | P.CRDCN ---
History of Present Illness Consult date: 06/04/24 History of present illness: History of Present Illness: The patient is a 73-year-old male with no prior history of significant CAD, followed by Dr. Bonilla, status post permanent pacemaker implantation who presented with an acute episode of dyspnea on exertion, occurred yesterday, sudden not associated with dizziness or syncope but he felt diaphoretic. His symptoms pers isted on and off and he subsequently came into the emergency room and was found to have evidence of pulmonary embolism. The patient is active physically, walks on a daily basis, had no recent travel or surgery. He had no recent trauma. He had minimal dyspnea few weeks ago that was transient but has not affected his physical activity. He was in sinus mechanism on presentation with no evidence o f malignant arrhythmia. His CAT scan showed large bilateral lower lobe pulmonary embolism with mild right heart strain. His duplex scan of the lower extremities showed no evidence of DVT. He was started on IV heparin and feels better at this time. He underwent cardiac catheterization March 2023 and had no evidence of obstructive CAD. He has a history of diabetes, hyperlipidemia and hypertension. He is a non-smoker. He stopped in 1997. Medications: Metformin 500 mg daily, simvastatin 40 mg daily, metoprolol succinate 50 mg daily, losartan 50 mg daily, aspirin Review of Systems: Respiratory: He had acute dyspnea on this morning but not at baseline GI: No nausea or vomiting . No history of peptic ulcer disease. No recent GI bleed. : No hematuria or dysuria. Nervous System: No stroke or seizure. Physical Examination: 73-year-old male, alert oriented no apparent distress,Blood pressure 138/94, Heart rate 68 Head: Normocephalic. Eyes: Sclerae nonicteric. Neck: Good carotid upstroke, no bruit, no jugular venous distention. Lungs: Clear to auscultation. Heart: Regular rate and rhythm, S1-S2, no S3, no rub. No murmur. Abdomen: Soft nontender, positive bowel sounds no organomegaly. Extremities: No edema, intact distal pulses. Labs: Hemoglobin 16.7, potassium 4.6, BUN 24, creatinine 1.09. Troponin 0.049. NT proBNP 1830. EKG: Sinus mechanism with 100% ventricular pacing: Impression: 1. Bilateral pulmonary embolism, hemodynamically stable with borderline RV strain on CT scan 2. Status post permanent pacemaker implantation 3. History of hypertension 4. History of hyperlipidemia 5. History of diabetes Plan: 1. Obtain an echocardiogram with Doppler. 2. If there is evidence of right-sided strain then proceed with intervention for thrombectomy or local thrombolytic infusion 3. Continue home medications 4. Continue IV heparin for now 5. I discussed the findings with the patient as well as the risks and the complications of procedure if indicated. Thank you for this consult we will follow with you. Past Medical History Past Medical History: Cancer, Diabetes Mellitus, Eye Disorder, Hypertension, Osteoarthritis (OA) Additional Past Medical History / Comment(s): hx. skin cancer, cataracts History of Any Multi-Drug Resistant Organisms: None Reported Past Surgical History: Hernia Repair, Orthopedic Surgery, Pacemaker Additional Past Surgical History / Comment(s): knee surg. as a teen, arthroscopy right knee, retinal surg., rt cataract Past Anesthesia/Blood Transfusion Reactions: No Reported Reaction Past Psychological History: No Psychological Hx Reported Smoking Status: Former smoker Past Alcohol Use History: Occasional Past Drug Use History: None Reported - Past Family History Mother Family Medical History: No Reported History Medications and Allergies Home Medications Medication Instructions Recorded Confirmed Type Glucos Sul 2Kcl/MSM/Chond/C/Mn 2 cap PO DAILY 03/11/19 06/03/24 History [Glucosamine Chondroitin Cap] Losartan [Cozaar] 50 mg PO HS 03/11/19 06/03/24 History Simvastatin [Zocor] 40 mg PO HS 03/11/19 06/03/24 History Berberine 600 mg PO DAILY 03/15/23 06/03/24 History Magnesium Citrate Gummies 300 mg PO HS 03/15/23 06/03/24 History Multivit-Mins/Iron/Folic/Lycop 1 tab PO HS 03/15/23 06/03/24 History [Centrum Men's Tablet] Senior Probiotic 1 tab PO HS 03/15/23 06/03/24 History Sildenafil Citrate [Viagra] 100 mg PO DIRECTED PRN 03/15/23 06/03/24 History metFORMIN HCL ER [Glucophage XR] 500 mg PO HS 03/15/23 06/03/24 History Aspirin 81 mg PO DAILY tab 03/17/23 06/03/24 Rx Metoprolol Succinate (ER) [Toprol 50 mg PO DAILY #90 tab 10/17/23 12/30/24 Rx XL] [place]-3 1040mg 1,040 mg PO DAILY 06/03/24 06/03/24 History Allergies Allergy/AdvReac Type Severity Reaction Status Date / Time No Known Allergies Allergy Verified 06/03/24 21:08 Physical Exam Vitals: Vital Signs Temp Pulse Resp BP Pulse Ox 06/04/24 06:12 68 18 138/94 97 06/04/24 05:05 68 18 135/86 98 06/04/24 04:10 18 06/04/24 03:52 70 18 142/95 96 06/04/24 02:40 69 16 134/88 99 06/04/24 02:07 69 16 134/88 97 06/04/24 02:05 18 06/04/24 01:03 77 18 138/93 97 06/04/24 00:11 80 18 154/111 98 06/03/24 22:58 90 16 153/104 96 06/03/24 21:55 81 16 134/97 93 L 06/03/24 20:49 82 16 125/90 95 06/03/24 20:19 97.6 F 78 18 143/90 92 L Intake and Output 06/03/24 06/04/24 06/04/24 22:59 06:59 14:59 Intake Total 114.272 Balance 114.272 Intake: Intake, IV Titration 114.272 Amount Heparin Sod,Pork in 0.45% 114.272 NaCl 25,000 unit In 0.45 % NaCl 1 250ml.bag @ 18 UNITS/KG/HR 17.227 mls/hr IV .[id number] [facility] Rx#: [id number] Other: Weight 95.708 kg Results 06/03/24 20:45 06/03/24 20:45 Cardiac Enzymes 06/03/24 06/03/24 Range/Units 20:45 20:45 AST 172 H (17-59) U/L Troponin I 0.049 H* (0.000-0.034) ng/mL Coagulation 06/03/24 06/04/24 Range/Units 20:45 03:56 PT 10.3 (10.0-12.5) sec APTT 21.3 L 50.8 H (22.0-30.0) sec CBC 06/03/24 Range/Units 20:45 WBC 12.6 H (3.8-10.6) k/uL RBC 5.67 (4.30-5.90) m/uL Hgb 16.7 (13.0-17.5) gm/dL Hct 51.1 (39.0-53.0) % Plt Count 203 (150-450) k/uL Comprehensive Metabolic Panel 06/03/24 Range/Units 20:45 Sodium 135 L (137-145) mmol/L Potassium 4.6 (3.5-5.1) mmol/L Chloride 101 (98-107) mmol/L Carbon Dioxide 18 L (22-30) mmol/L BUN 24 H (9-20) mg/dL Creatinine 1.09 (0.66-1.25) mg/dL Glucose 196 H (74-99) mg/dL Calcium 9.1 (8.4-10.2) mg/dL AST 172 H (17-59) U/L ALT 169 H (4-49) U/L Alkaline Phosphatase 95 (38-126) U/L Total Protein 6.6 (6.3-8.2) g/dL Albumin 4.2 (3.5-5.0) g/dL Current Medications Generic Name Dose Route Start Last Admin Trade Name Freq PRN Reason Stop Dose Admin Acetaminophen 650 mg 06/04/24 00:22 Acetaminophen Tab 325 Mg Tab PO Q6HR PRN Fever and/or Mild Pain Hydrocodone Bitart/Acetaminophen 1 each 06/04/24 00:22 Hydrocodone/Apap 5-325mg 1 Each Tab PO Q6HR PRN Moderate Pain (Scale 4 to 6) Famotidine 20 mg 06/04/24 09:00 06/04/24 08:00 Famotidine 20 Mg Tab PO Not Given BID [facility] Heparin Sodium (Porcine) 0 unit 06/03/24 21:51 Heparin Sodium 1,000 Un/Ml (10ml Vl) IV PER PROTOCOL PRN Low PTT Protocol Heparin Sodium/Sodium Chloride 250 mls @ 17.227 mls/hr 06/03/24 22:00 06/04/24 04:59 25,000 unit/ Sodium Chloride IV 18 units/kg/hr .[id number] 17.227 mls/hr Titration Protocol 18 UNITS/KG/HR Miscellaneous Information 1 each 06/04/24 00:22 Potassium Replacement Protocol 1 Each Misc MISCELLANE DAILY PRN Per Protocol Miscellaneous Information 1 each 06/04/24 00:22 Magnesium Replacement Protocol 1 Each Misc MISCELLANE DAILY PRN Per Protocol Protocol Miscellaneous Information 1 each 06/04/24 00:22 Phosphorus Replacement Protoco 1 Each Misc MISCELLANE DAILY PRN Per Protocol Protocol Morphine Sulfate 4 mg 06/04/24 00:22 Morphine Sulfate 4 Mg/Ml Syringe IV Q3HR PRN Severe Pain (Scale 7 to 10) Naloxone HCl 0.2 mg 06/04/24 00:22 Naloxone 0.4 Mg/Ml 1 Ml Vial IV Q2M PRN Opioid Reversal Intake and Output 06/03/24 06/04/24 06/04/24 22:59 06:59 14:59 Intake Total 114.272 Balance 114.272 Intake: Intake, IV Titration 114.272 Amount Heparin Sod,Pork in 0.45% 114.272 NaCl 25,000 unit In 0.45 % NaCl 1 250ml.bag @ 18 UNITS/KG/HR 17.227 mls/hr IV .[id number] [facility] Rx#: [id number] Other: Weight 95.708 kg 06/03/24 20:45 06/03/24 20:45
--- NOTE | 2024-06-04 09:45 | P.HPIM ---
History of Present Illness This is a pleasant 73 years old male with past medical history of multiple medical problems including hypertension and diabetes Presents because of near syncope, he was found to be little bit hypoxic at home. Patient also has been complaining from exertional dyspnea over several weeks duration. However he is not dyspneic or tachypneic at rest. On admission patient was found to have large bilateral lower lobe pulmonary emboli and he was admitted with heparin drip started with close monitoring Patient currently is fully awake and oriented, denies chest pain or dyspnea at rest. No other GI/ symptoms. No headache dizziness weakness or numbness. at bedside and she agrees with his same. He denies smoking alcohol or illicit drugs. He is currently hemodynamically stable, afebrile CBC showing only mild leukocytosis at 12.6, liver enzymes mildly elevated, however BMP is unremarkable Troponin is elevated at 0.04 Influenza A and type B, RSV, SARS (coronavirus) are undetected Chest x-ray is no acute process CT of the chest showing large bilateral lower lobe pulmonary emboli with mild right heart strain EKG showing ventricular paced rhythm proBNP is slightly elevated 1830. Patient currently started on heparin drip Review of Systems Review of systems CONSTITUTIONAL: No fever, no malaise, no fatigue. HEENT: No recent visual problems or hearing problems. Denied any sore throat. CARDIOVASCULAR: No orthopnea, PND, no palpitations, no syncope. PULMONARY: no cough, no hemoptysis. GASTROINTESTINAL: No diarrhea, no nausea, no vomiting, no abdominal pain. Normoactive bowel sounds. NEUROLOGICAL: No headaches, no weakness, no numbness. HEMATOLOGICAL: Denies any bleeding or petechiae. GENITOURINARY: Denies any burning micturition, frequency, or urgency. MUSCULOSKELETAL/RHEUMATOLOGICAL: Denies any joint pain, swelling, or any muscle pain. ENDOCRINE: Denies any polyuria or polydipsia. Past Medical History Past Medical History: Cancer, Diabetes Mellitus, Eye Disorder, Hypertension, Osteoarthritis (OA) Additional Past Medical History / Comment(s): hx. skin cancer, cataracts History of Any Multi-Drug Resistant Organisms: None Reported Past Surgical History: Hernia Repair, Orthopedic Surgery, Pacemaker Additional Past Surgical History / Comment(s): knee surg. as a teen, arthroscopy right knee, retinal surg., rt cataract Past Anesthesia/Blood Transfusion Reactions: No Reported Reaction Past Psychological History: No Psychological Hx Reported Smoking Status: Former smoker Past Alcohol Use History: Occasional Past Drug Use History: None Reported - Past Family History Mother Family Medical History: No Reported History Medications and Allergies Home Medications Medication Instructions Recorded Confirmed Type Glucos Sul 2Kcl/MSM/Chond/C/Mn 2 cap PO DAILY 03/11/19 06/03/24 History [Glucosamine Chondroitin Cap] Losartan [Cozaar] 50 mg PO HS 03/11/19 06/03/24 History Simvastatin [Zocor] 40 mg PO HS 03/11/19 06/03/24 History Berberine 600 mg PO DAILY 03/15/23 06/03/24 History Magnesium Citrate Gummies 300 mg PO HS 03/15/23 06/03/24 History Multivit-Mins/Iron/Folic/Lycop 1 tab PO HS 03/15/23 06/03/24 History [Centrum Men's Tablet] Senior Probiotic 1 tab PO HS 03/15/23 06/03/24 History Sildenafil Citrate [Viagra] 100 mg PO DIRECTED PRN 03/15/23 06/03/24 History metFORMIN HCL ER [Glucophage XR] 500 mg PO HS 03/15/23 06/03/24 History Aspirin 81 mg PO DAILY tab 03/17/23 06/03/24 Rx Metoprolol Succinate (ER) [Toprol 50 mg PO DAILY #90 tab 03/21/23 06/03/24 Rx XL] [place]-3 1040mg 1,040 mg PO DAILY 06/03/24 06/03/24 History Allergies Allergy/AdvReac Type Severity Reaction Status Date / Time No Known Allergies Allergy Verified 06/03/24 21:08 Physical Exam Vitals: Vital Signs Temp Pulse Resp BP Pulse Ox 06/04/24 06:12 68 18 138/94 97 06/04/24 05:05 68 18 135/86 98 06/04/24 04:10 18 06/04/24 03:52 70 18 142/95 96 06/04/24 02:40 69 16 134/88 99 06/04/24 02:07 69 16 134/88 97 06/04/24 02:05 18 06/04/24 01:03 77 18 138/93 97 06/04/24 00:11 80 18 154/111 98 06/03/24 22:58 90 16 153/104 96 06/03/24 21:55 81 16 134/97 93 L 06/03/24 20:49 82 16 125/90 95 06/03/24 20:19 97.6 F 78 18 143/90 92 L Intake and Output 06/03/24 06/04/24 06/04/24 22:59 06:59 14:59 Intake Total 114.272 Balance 114.272 Intake: Intake, IV Titration 114.272 Amount Heparin Sod,Pork in 0.45% 114.272 NaCl 25,000 unit In 0.45 % NaCl 1 250ml.bag @ 18 UNITS/KG/HR 17.227 mls/hr IV .[id number] Rx#: [id number] Other: Weight 95.708 kg GENERAL: The patient is alert and oriented x3, not in any acute distress. Well developed, well nourished. HEENT: Pupils are round and equally reacting to light. EOMI. No scleral icterus. No conjunctival pallor. Normocephalic, atraumatic. No pharyngeal erythema. No thyromegaly. CARDIOVASCULAR: S1 and S2 present. No murmurs, rubs, or gallops. PULMONARY: Chest is clear to auscultation, no wheezing , no crackles. ABDOMEN: Soft, nontender, nondistended, normoactive bowel sounds. No palpable organomegaly. MUSCULOSKELETAL: No joint swelling or deformity. EXTREMITIES: No cyanosis, clubbing, or pedal edema. NEUROLOGICAL: Gross neurological examination did not reveal any focal deficits. SKIN: No rashes. no petechiae. Results CBC & Chem 7: 06/03/24 20:45 06/03/24 20:45 Labs: Abnormal Lab Results - Last 24 Hours (Table) 06/03/24 06/03/24 06/03/24 Range/Units 20:45 20:45 20:45 WBC 12.6 H (3.8-10.6) k/uL Neutrophils # 9.9 H (1.3-7.7) k/uL APTT 21.3 L (22.0-30.0) sec Sodium 135 L (137-145) mmol/L Carbon Dioxide 18 L (22-30) mmol/L BUN 24 H (9-20) mg/dL Glucose 196 H (74-99) mg/dL AST 172 H (17-59) U/L ALT 169 H (4-49) U/L Troponin I (0.000-0.034) ng/mL 06/03/24 06/04/24 Range/Units 20:45 03:56 WBC (3.8-10.6) k/uL Neutrophils # (1.3-7.7) k/uL APTT 50.8 H (22.0-30.0) sec Sodium (137-145) mmol/L Carbon Dioxide (22-30) mmol/L BUN (9-20) mg/dL Glucose (74-99) mg/dL AST (17-59) U/L ALT (4-49) U/L Troponin I 0.049 H* (0.000-0.034) ng/mL Assessment and Plan Assessment: Acute bilateral lower lobe pulmonary embolism with elevated troponin secondary to right hand to trend from his PE Near syncope secondary to his acute pulmonary embolism Hypertension Diabetes mellitus Obstructive sleep apnea Status post pacemaker Plan: Continue with heparin drip Ultrasound of the leg is checked there is no DVT Check echocardiogram Cardiology and pulmonary team consult Labs and medication were reviewed.. Continue same treatment. Continue with symptomatic treatment. Resume home medication. Monitor labs and vitals. DVT and GI prophylaxis. Further recommendations as per clinical course of the patient DVT prophylaxis: heparin GI Prophylaxis: Pepcid PT/OT: Pending Prognosis is guarded
--- NOTE | 2024-06-04 10:08 | CA ---
Transthoracic Echo Report Name: Oliverio Miller Age: 73 Gender: M : 1950 Exam Date: 06/04/2024 08:41 Exam Location: [facility] Ht (in): 72 Wt (lb): 211 Ordering Physician: Shira Hurt MD Attending/Referring Phys: Rheumatologist Venita Alfaro RDCS Procedure CPT: Indications: Large Bilateral PE Cardiac Hx: pacemaker Technical Quality: Fair Contrast 1: Total Dose (mL): Contrast 2: Total Dose (mL): MEASUREMENTS (Male / Female) Normal Values 2D ECHO LV Diastolic Diameter PLAX 4.1 cm 4.2 - 5.9 / 3.9 - 5.3 cm LV Systolic Diameter PLAX 3.1 cm IVS Diastolic Thickness 1.5 cm 0.6 - 1.0 / 0.6 - 0.9 cm LVPW Diastolic Thickness 1.5 cm 0.6 - 1.0 / 0.6 - 0.9 cm LV Relative Wall Thickness 0.7 RV Internal Dim ED PLAX 4.1 cm LA Systolic Diameter LX 3.7 cm 3.0 - 4.0 / 2.7 - 3.8 cm LV Diastolic Volume MOD 4C 58.0 cm??? LV Systolic Volume MOD 4C 28.9 cm??? LV Ejection Fraction MOD 4C 50.2 % LV Cardiac Index MOD 4C 903.6 cm???/min???m??? LV Diastolic Length 4C 8.4 cm LV Systolic Length 4C 7.5 cm LV Diastolic Volume MOD 2C 60.8 cm??? LV Systolic Volume MOD 2C 29.9 cm??? LV Ejection Fraction MOD 2C 50.8 % LV Cardiac Index MOD 2C 958.0 cm???/min???m??? LV Diastolic Length 2C 7.7 cm LV Systolic Length 2C 6.2 cm LA Volume 29.8 cm??? 18 - 58 / 22 - 52 cm??? LA Volume Index 13.4 cm???/m??? 16 - 28 cm???/m??? M-MODE Aortic Root Diameter MM 4.0 cm AV Cusp Separation MM 2.4 cm DOPPLER MV Area PHT 3.1 cm??? Mitral E Point Velocity 37.7 cm/s Mitral A Point Velocity 108.5 cm/s Mitral E to A Ratio 0.3 MV Deceleration Time 246.5 ms MV E' Velocity 12.2 cm/s Mitral E to MV E' Ratio 3.1 TR Peak Velocity 421.5 cm/s TR Peak Gradient 71.1 mmHg Right Ventricular Systolic Press 81.0 mmHg FINDINGS Left Ventricle Left ventricular ejection fraction is estimated at 55-60 %. Left ventricular cavity size normal. Moderate concentric left ventricular hypertrophy. Normal left ventricular diastolic filling pattern. Right Ventricle Severe right ventricular dilatation. Severe pulmonary hypertension. Right ventricular systolic pressure estimated at 81 mm hg. Right Atrium Mild right atrial dilatation. No right atrial thrombus or mass seen. Left Atrium Normal left atrial size. No left atrial thrombus or mass present. Mitral Valve Structurally normal mitral valve. No mitral stenosis, regurgitation or prolapse. Aortic Valve Trileaflet aortic valve. No aortic valve stenosis or regurgitation. Tricuspid Valve Structurally normal tricuspid valve. [id number] tricuspid regurgitation. Pulmonic Valve Structurally normal pulmonic valve. Mild pulmonic regurgitation. Pericardium No pericardial effusion. Aorta Moderate aortic dilatation at the level of the sinuses of valsalva 40 mm CONCLUSIONS The normal LV systolic function with EF between 55 to 60% and moderate LVH Severe pulmonary hypertension Dilated right ventricle Moderate to severe tricuspid regurgitation Overall technically difficult study for interpretation Previewed by: Dr. Fracisco Jacobo MD (Electronically Signed) Final Date: 04 June 2024 10:07
[2024-06-04] MEDS ORDERED: SODIUM CHLORIDE 0.9% 1,000 ML IV SCH ×2 (11:00)
[2024-06-04 11:26] LABS: Basophils # (A) 0.1 k/uL (0-0.2); Basophils % (A) 1 %; Eosinophils # (A) 0.2 k/uL (0-0.7); Eosinophils % (A) 2 %; HGB 16.2 gm/dL (13.0-17.5); Lymphocytes % (A) 23 %; MCH 29.4 pg (25.0-35.0); MCHC 33.1 g/dL (31.0-37.0); MCV 88.7 fL (80.0-100.0); Mean Platelet Volume 7.6; Monocytes # (A) 0.6 k/uL (0-1.0); Monocytes % (A) 6 %; Neutrophils # (A) 5.9 k/uL (1.3-7.7); Neutrophils % (A) 67 %; Platelet Count 199 k/uL (150-450); RBC 5.52 m/uL (4.30-5.90); RDW 12.9 % (11.5-15.5); WBC 8.8 k/uL (3.8-10.6)
[2024-06-04 11:44] LABS: Partial Thromboplastin Time 58.3 sec (22.0-30.0)
[2024-06-04 12:08] LABS: African American GFR (CKD) 86 (>60 ml/min/1.73 sqM); Anion Gap 12 mmol/L; Blood Urea Nitrogen 17 mg/dL (9-20); Calcium 9.4 mg/dL (8.4-10.2); Carbon Dioxide 23 mmol/L (22-30); Chloride 104 mmol/L (98-107); Glucose 147 mg/dL (74-99); Non-African American GFR(CKD) 74 (>60 ml/min/1.73 sqM); Potassium 4.5 mmol/L (3.5-5.1); Sodium 139 mmol/L (137-145)
[2024-06-04] MEDS: SODIUM CHLORIDE 0.9% 500 ML 500 ML IV ONE (13:29)
[2024-06-04] MEDS: fentaNYL (PF) 50 MCG/ML 2 ML AMP IVP ONE (13:42)
[2024-06-04] MEDS: LIDOCAINE 1% INJ 10MG/ML (20 ML MDV) SQ ONE (13:45)
[2024-06-04] MEDS: ALTEPLASE 2 MG VIAL (CATHFLO) IV STA (14:18)
[2024-06-04] MEDS: SODIUM CHLORIDE 0.9% 1,000 ML IV SCH ×2 (14:20→14:21)
[2024-06-04] MEDS: HEPARIN SOD,PORK IN 0.45% NACL 25,000 UNIT in 0.45% NACL 1 250ML.BAG IV SCH ×3 (14:20→19:08)
[2024-06-04] MEDS: ALTEPLASE 6 MG in SODIUM CHLORIDE 0.9% 144 ML IV ONE (14:21)
--- NOTE | 2024-06-04 14:55 | P.CARDCATH ---
Date of Procedure: 06/04/24 Description of Procedure: EKOS catheter placement and infusion Indications: Pulmonary embolism Procedure: After explaining the procedure to the patient as well as the risks and the complications he was brought into the cardiac catheterization laboratory in the fasting semi sedated state after receiving fentanyl and Benadryl. Using micropuncture technique to a 8 Indonesian sheath were introduced in the right femoral vein. Subsequently using a [place]-Suzanne catheter a victory 18 wire was positioned in the left pulmonary artery subsequently the infusion catheter was placed. Subsequently the [place]-Suzanne catheter was placed in the right pulmonary artery and exchanged to the infusion catheter using the picture 18 wire. After securing post catheter and received a tPA bolus infusion was started. There was no immediate complications. Both sheath where secured in place. The patient was returned to his room in stable condition. Infusion will be continued for 3 hours and he will be initiated on IV heparin and subsequently switch to oral anticoagulation. The findings and the results were discussed with the patient and his family and they are in agreement and understanding. Duration of sedation: 54 minutes.
[2024-06-04 15:10] LABS: Glucose,Whole Blood 126 mg/dL (70-110)
--- NOTE | 2024-06-04 15:21 | IR ---
EXAMINATION TYPE: IR angio pulmonary BILAT DATE OF EXAM: 06/04/2024 FLUOROSCOPY Bilateral PE, 27.4m/62.2DAP, Rt gr venous sheath x 2 sutured. 1 images provided. [facility], , 06/04/2024 3:19 PM
[2024-06-04] MEDS: metFORMIN 500 MG TAB PO SCH (17:58)
[2024-06-04] MEDS ORDERED: HEPARIN SODIUM 1,000 UN/ML (10ML VL) IV PRN (18:30)
[2024-06-04] MEDS: ACETAMINOPHEN TAB 325 MG TAB PO PRN (19:07)
[2024-06-04] MEDS: ATORVASTATIN 20 MG TAB PO SCH (20:35)
[2024-06-04] MEDS: LOSARTAN 50 MG TAB PO SCH (20:35)
[2024-06-04 21:40] LABS: Glucose,Whole Blood 147 mg/dL (70-110)
[2024-06-04] MEDS: HYDROcodone/APAP 5-325MG 1 EACH TAB PO PRN (23:46)
[2024-06-05 06:21] LABS: Glucose,Whole Blood 156 mg/dL (70-110)
[2024-06-05 06:29] LABS: HCT 45.4 % (39.0-53.0); MCH 29.6 pg (25.0-35.0); MCV 89.5 fL (80.0-100.0); Mean Platelet Volume 7.8; Platelet Count 173 k/uL (150-450); RBC 5.08 m/uL (4.30-5.90); RDW 12.9 % (11.5-15.5); WBC 8.1 k/uL (3.8-10.6)
[2024-06-05 06:46] LABS: Partial Thromboplastin Time 60.8 sec (22.0-30.0); Prothrombin Time 11.3 sec (10.0-12.5)
[2024-06-05 06:47] LABS: African American GFR (CKD) 76 (>60 ml/min/1.73 sqM); Anion Gap 6 mmol/L; Blood Urea Nitrogen 17 mg/dL (9-20); Calcium 8.7 mg/dL (8.4-10.2); Carbon Dioxide 26 mmol/L (22-30); Chloride 103 mmol/L (98-107); Glucose 154 mg/dL (74-99); Non-African American GFR(CKD) 65 (>60 ml/min/1.73 sqM); Potassium 4.5 mmol/L (3.5-5.1); Sodium 135 mmol/L (137-145)
[2024-06-05] MEDS: METOPROLOL SUCCINATE (ER) 50 MG TAB.ER.24H PO SCH (08:15)
[2024-06-05] MEDS ORDERED: APIXABAN 5 MG TAB PO SCH (10:15)
--- NOTE | 2024-06-05 10:22 | P.PN ---
Subjective Progress Note Date: 06/05/24 History of Present Illness: The patient is a 73-year-old male with no prior history of significant CAD, f ollowed by Dr. Bonilla, status post permanent pacemaker implantation who presented with an acute episode of dyspnea on exertion, occurred yesterday, sudden not associated with dizziness or syncope but he felt diaphoretic. His symptoms persisted on and off and he subsequently came into the emergency room and was found to have evidence of pulmonary embolism. The patient is active physically, walks on a daily basis, had no recent travel or surgery. He had no recent trauma. He had minimal dyspnea few weeks ago that was transient but has not affected his physical activity. He was in sinus mechanism on presentation with no evidence of malignant arrhythmia. His CAT scan showed large bilateral lower lobe pulmonary embolism with mild right heart strain. His duplex scan of the lower extremities showed no evidence of DVT. He was started on IV heparin and feels better at this time. He underwent cardiac catheterization March 2023 and had no evidence of obstructive CAD. He has a history of diabetes, hyperlipidemia and hypertension. He is a non-smoker. He stopped in 1997. Medications: Metformin 500 mg daily, simvastatin 40 mg daily, metoprolol succinate 50 mg daily, losartan 50 mg daily, aspirin Progress note 06/05/2024 Patient is seen and examined at bedside this a.m. He had a EKOS procedure done yesterday with completion of protocol last night. Currently is on IV heparin drip. He has sheath in place with no complications of bleeding. He is hemodynamically stable otherwise. BP 140 systolic, 80 diastolic. Review of Systems: Respiratory: He had acute dyspnea on this morning but not at baseline GI: No nausea or vomiting . No history of peptic ulcer disease. No recent GI bl eed. : No hematuria or dysuria. Nervous System: No stroke or seizure. Physical Examination: 73-year-old male, alert oriented no apparent distress,Blood pressure 138/94, Heart rate 68 Head: Normocephalic. Eyes: Sclerae nonicteric. Neck: Good carotid upstroke, no bruit, no jugular venous distention. Lungs: Clear to auscultation. Heart: Regular rate and rhythm, S1-S2, no S3, no rub. No murmur. Abdomen: Soft nontender, positive bowel sounds no organomegaly. Extremities: No edema, intact distal pulses. Labs: Hb 15, creatinine 1.1 EKG: sinus rhythm with ventricularly paced rhythm. Impression: 1. Submassive bilateral pulm embolism with high clot burden. Borderline RV LV ratio on CT scan. Likely unprovoked 2. Status post permanent pacemaker implantation in 2022 for complete heart block. Mild nonobstructive coronary artery disease with microvascular disease affecting the RCA and distal LAD in 2022 Obesity 3. History of hypertension 4. History of hyperlipidemia 5. History of diabetes Plan: Echocardiogram shows preserved LVEF, moderate concentric LVH, severe pulmonary hypertension. I will discontinue his IV heparin and start him on Eliquis 10 mg twice daily with PE dosing. Will remove his venous sheath, transfer him out of ICU Monitor hemodynamically tomorrow. Currently is on metoprolol succinate 50 mg daily and losartan 50 mg daily for blood pressure control and microvascular disease. I will also add Farxiga 10 mg daily for diabetes control and some reported benefit with microvascular disease. Continue high intensity statin. Consider switching from simvastatin to Crestor 20 mg daily For his anticoagulation, I would recommend indefinite anticoagulation because it seems like an unprovoked event. Objective - Vital Signs Vital signs: Vital Signs Temp 97.7 F 06/05/24 08:00 Pulse 54 L 06/05/24 10:00 Resp 7 L 06/05/24 10:00 BP 154/91 06/05/24 10:00 Pulse Ox 97 06/05/24 10:00 FiO2 Intake & Output 06/04/24 06/05/24 06/05/24 18:59 06:59 18:59 Intake Total 194.928 7717 439.841 Output Total 0 800 0 Balance 935.659 380 439.841 Weight 95.708 kg 104 kg Intake: IV 830 780 180 .9 NC PIVL 80 260 60 .9 NC shealths 520 120 Alteplase 6 mg In Sodium 200 Chloride 0.9% 144 ml @ 1 MG/HR 25 mls/hr IV .Q6H [facility] Rx#:[id number] Heparin Sod,Pork in 0.45% 20 NaCl 25,000 unit In 0.45 % NaCl 1 250ml.bag @ 2.5 mls/hr IV .Q24H [facility] Rx#: [id number] Sodium Chloride 0.9% 1, 280 000 ml @ 35 mls/hr IV . Q24H [facility] Rx#:[id number] Intake, IV Titration 105.659 259.841 Amount Heparin Sod,Pork in 0.45% 105.659 NaCl 25,000 unit In 0.45 % NaCl 1 250ml.bag @ 18 UNITS/KG/HR 17.227 mls/hr IV .[id number] [facility] Rx#: [id number] Heparin Sod,Pork in 0.45% 259.841 NaCl 25,000 unit In 0.45 % NaCl 1 250ml.bag @ 18 UNITS/KG/HR 17.227 mls/hr IV .[id number] [facility] Rx#: [id number] Oral 400 Output: Urine 0 800 0 Other: Voiding Method Urinal Urinal # Voids 0 - Labs CBC & Chem 7: 06/05/24 05:36 06/05/24 05:36 Labs: Abnormal Lab Results - Last 24 Hours (Table) 06/04/24 06/04/24 06/04/24 Range/Units 11:00 11:00 15:09 APTT 58.3 H (22.0-30.0) sec Fibrinogen 521 H (200-500) mg/dL Sodium (137-145) mmol/L Glucose 147 H (74-99) mg/dL POC Glucose (mg/dL) 126 H (70-110) mg/dL 06/04/24 06/04/24 06/05/24 Range/Units 15:18 21:38 00:59 APTT 35.0 H 52.4 H (22.0-30.0) sec Fibrinogen (200-500) mg/dL Sodium (137-145) mmol/L Glucose (74-99) mg/dL POC Glucose (mg/dL) 147 H (70-110) mg/dL 06/05/24 06/05/24 06/05/24 Range/Units 05:36 05:36 06:20 APTT 60.8 H (22.0-30.0) sec Fibrinogen (200-500) mg/dL Sodium 135 L (137-145) mmol/L Glucose 154 H (74-99) mg/dL POC Glucose (mg/dL) 156 H (70-110) mg/dL
[2024-06-05] MEDS: Apixaban Initiation Dose--VTE 5 MG TAB PO SCH (10:47)
[2024-06-05] MEDS: DAPAGLIFLOZIN PROPANEDIOL 10 MG TABLET PO SCH (10:47)
--- NOTE | 2024-06-05 11:26 | P.PN ---
Subjective This is a pleasant 73 years old male with past medical history of multiple medical problems including hypertension and diabetes Presents because of near syncope, he was found to be little bit hypoxic at home. Patient also has been complaining from exertional dyspnea over several weeks duration. However he is not dyspneic or tachypneic at rest. On admission patient was found to have large bilateral lower lobe pulmonary emboli and he was admitted with heparin drip started with close monitoring Patient currently is fully awake and oriented, denies chest pain or dyspnea at rest. No other GI/ symptoms. No headache dizziness weakness or numbness. at bedside and she agrees with his same. He denies smoking alcohol or illicit drugs. He is currently hemodynamically stable, afebrile CBC showing only mild leukocytosis at 12.6, liver enzymes mildly elevated, however BMP is unremarkable Troponin is elevated at 0.04 Influenza A and type B, RSV, SARS (coronavirus) are undetected Chest x-ray is no acute process CT of the chest showing large bilateral lower lobe pulmonary emboli with mild right heart strain EKG showing ventricular paced rhythm proBNP is slightly elevated 1830. Patient currently started on heparin drip 06/05 Patient remains in the ICU, he status post EKOS catheter placement and tPA infusion yesterday. It looks like patient tolerated procedure well Cardiology team are planning to withdraw the catheter from his right groin today. No chest pain or dyspnea. No other new complaint. Patient is wanting to get out of bed today because of his back pain but no breathing difficulties or hypoxia. Heparin drip switched to Eliquis with loading dose No other new complaints Check echocardiogram: Ejection fraction 55 to 60% with severe pulmonary hypertension and moderate to severe tricuspid regurgitation and dilated right ventricle, Review of systems CONSTITUTIONAL: No fever, no malaise, no fatigue. HEENT: No recent visual problems or hearing problems. Denied any sore throat. CARDIOVASCULAR: No orthopnea, PND, no palpitations, no syncope. HEMATOLOGICAL: Denies any bleeding or petechiae. GENITOURINARY: Denies any burning micturition, frequency, or urgency. MUSCULOSKELETAL/RHEUMATOLOGICAL: Denies any joint pain, swelling, or any muscle pain. ENDOCRINE: Denies any polyuria or polydipsia. Active Medications Generic Name Dose Route Start Last Admin Trade Name Freq PRN Reason Stop Dose Admin Acetaminophen 650 mg 06/04/24 00:22 06/05/24 04:01 Acetaminophen Tab 325 Mg Tab PO 650 mg Q6HR PRN Administration Fever and/or Mild Pain Hydrocodone Bitart/Acetaminophen 1 each 06/04/24 00:22 06/05/24 05:53 Hydrocodone/Apap 5-325mg 1 Each Tab PO 1 each Q6HR PRN Administration Moderate Pain (Scale 4 to 6) Apixaban 10 mg 06/05/24 11:00 06/05/24 10:47 Apixaban Initiation Dose--Vte 5 Mg Tab PO 07/05/24 08:59 10 mg BID [facility] Administration Taper Atorvastatin Calcium 20 mg 06/04/24 21:00 06/04/24 20:35 Atorvastatin 20 Mg Tab PO 20 mg HS [facility] Administration Dapagliflozin 10 mg 06/05/24 10:30 06/05/24 10:47 Dapagliflozin Propanediol 10 Mg Tablet PO 10 mg DAILY [facility] Administration Famotidine 20 mg 06/04/24 09:00 06/05/24 08:15 Famotidine 20 Mg Tab PO 20 mg BID [facility] Administration Losartan Potassium 50 mg 06/04/24 21:00 06/04/24 20:35 Losartan 50 Mg Tab PO 50 mg HS [facility] Administration Metformin HCl 500 mg 06/05/24 17:30 Metformin 500 Mg Tab PO 1730 [facility] Metoprolol Succinate 50 mg 06/05/24 09:00 06/05/24 08:15 Metoprolol Succinate (Er) 50 Mg Tab.Er.24h PO 50 mg DAILY [facility] Administration Miscellaneous Information 1 each 06/04/24 00:22 Potassium Replacement Protocol 1 Each Misc MISCELLANE DAILY PRN Per Protocol Miscellaneous Information 1 each 06/04/24 00:22 Magnesium Replacement Protocol 1 Each Misc MISCELLANE DAILY PRN Per Protocol Protocol Miscellaneous Information 1 each 06/04/24 00:22 Phosphorus Replacement Protoco 1 Each Misc MISCELLANE DAILY PRN Per Protocol Protocol Morphine Sulfate 4 mg 06/04/24 00:22 Morphine Sulfate 4 Mg/Ml Syringe IV Q3HR PRN Severe Pain (Scale 7 to 10) Naloxone HCl 0.2 mg 06/04/24 00:22 Naloxone 0.4 Mg/Ml 1 Ml Vial IV Q2M PRN Opioid Reversal Objective - Vital Signs Vital signs: Vital Signs Temp 97.7 F 06/05/24 08:00 Pulse 56 L 06/05/24 11:00 Resp 17 06/05/24 11:00 BP 135/79 06/05/24 11:00 Pulse Ox 97 06/05/24 11:00 FiO2 Intake & Output 06/04/24 06/05/24 06/05/24 18:59 06:59 18:59 Intake Total 302.645 7950 499.841 Output Total 0 800 0 Balance 935.659 380 499.841 Weight 95.708 kg 104 kg Intake: IV 830 780 240 .9 NC PIVL 80 260 80 .9 NC shealths 520 160 Alteplase 6 mg In Sodium 200 Chloride 0.9% 144 ml @ 1 MG/HR 25 mls/hr IV .Q6H [facility] Rx#:[id number] Heparin Sod,Pork in 0.45% 20 NaCl 25,000 unit In 0.45 % NaCl 1 250ml.bag @ 2.5 mls/hr IV .Q24H [facility] Rx#: [id number] Sodium Chloride 0.9% 1, 280 000 ml @ 35 mls/hr IV . Q24H [facility] Rx#:[id number] Intake, IV Titration 105.659 259.841 Amount Heparin Sod,Pork in 0.45% 105.659 NaCl 25,000 unit In 0.45 % NaCl 1 250ml.bag @ 18 UNITS/KG/HR 17.227 mls/hr IV .[id number] [facility] Rx#: [id number] Heparin Sod,Pork in 0.45% 259.841 NaCl 25,000 unit In 0.45 % NaCl 1 250ml.bag @ 18 UNITS/KG/HR 17.227 mls/hr IV .[id number] [facility] Rx#: [id number] Oral 400 Output: Urine 0 800 0 Other: Voiding Method Urinal Urinal # Voids 0 - Exam GENERAL: The patient is alert and oriented x3, not in any acute distress. Well developed, well nourished. HEENT: Pupils are round and equally reacting to light. EOMI. No scleral icterus. No conjunctival pallor. Normocephalic, atraumatic. No pharyngeal erythema. No thyromegaly. CARDIOVASCULAR: S1 and S2 present. No murmurs, rubs, or gallops. PULMONARY: Chest is clear to auscultation, no wheezing , no crackles. ABDOMEN: Soft, nontender, nondistended, normoactive bowel sounds. No palpable organomegaly. MUSCULOSKELETAL: No joint swelling or deformity. EXTREMITIES: No cyanosis, clubbing, or pedal edema. NEUROLOGICAL: Gross neurological examination did not reveal any focal deficits. SKIN: No rashes. no petechiae. - Labs CBC & Chem 7: 06/05/24 05:36 06/05/24 05:36 Labs: Abnormal Lab Results - Last 24 Hours (Table) 06/04/24 06/04/24 06/04/24 Range/Units 11:00 11:00 15:09 APTT 58.3 H (22.0-30.0) sec Fibrinogen 521 H (200-500) mg/dL Sodium (137-145) mmol/L Glucose 147 H (74-99) mg/dL POC Glucose (mg/dL) 126 H (70-110) mg/dL 06/04/24 06/04/24 06/05/24 Range/Units 15:18 21:38 00:59 APTT 35.0 H 52.4 H (22.0-30.0) sec Fibrinogen (200-500) mg/dL Sodium (137-145) mmol/L Glucose (74-99) mg/dL POC Glucose (mg/dL) 147 H (70-110) mg/dL 06/05/24 06/05/24 06/05/24 Range/Units 05:36 05:36 06:20 APTT 60.8 H (22.0-30.0) sec Fibrinogen (200-500) mg/dL Sodium 135 L (137-145) mmol/L Glucose 154 H (74-99) mg/dL POC Glucose (mg/dL) 156 H (70-110) mg/dL Assessment and Plan Assessment: -Acute bilateral lower lobe pulmonary embolism with elevated troponin secondary to right hand to trend from his PE, status post EKOS catheter placement and tPA infusion severe pulmonary hypertension and moderate to severe tricuspid regurgitation and dilated right ventricl Near syncope secondary to his acute pulmonary embolism Hypertension Diabetes mellitus Obstructive sleep apnea Status post pacemaker Plan: Continue with Eliquis starting loading dose Status post EKOS catheter infusion Cardiology and pulmonary team consult Labs and medication were reviewed.. Continue same treatment. Continue with symptomatic treatment. Resume home medication. Monitor labs and vitals. DVT and GI prophylaxis. Further recommendations as per clinical course of the patient DVT prophylaxis: heparin GI Prophylaxis: Pepcid PT/OT: Pending Prognosis is guarded
[2024-06-05 11:50] LABS: Glucose,Whole Blood 154 mg/dL (70-110)
--- NOTE | 2024-06-05 12:20 | P.PN ---
Subjective Progress Note Date: 06/05/24 Principal diagnosis: Pulmonary embolism. Patient is a 73-year-old male with past medical history segment for diabetes mellitus, hypertension, pacemaker, and remote history of tobacco smoking. Pulmonary consult was placed for bilateral submassive PE. Patient denies any personal or familial history of previous blood clots. Denies prolonged air or car travel, denies recent hospitalizations or immobilization, denies recent trauma, denies recent surgery. Denies unilateral lower extremity swelling. Patient states that he is normally very active, walks approximately 3-1/2 miles yesterday. He was doing well and having no symptoms. Yesterday evening developed severe respiratory distress which was acute and sudden when ambulating to the bathroom. Never completely recovered. Associated with diaphoresis and lightheadedness. Reportedly had a near syncopal event while sitting on the couch. Denies losing consciousness. Denies chest pain or hemoptysis. Similar episode reported several weeks ago. Chest CTA done in the emergency department showing large saddle pulmonary embolism extending into the bilateral lower lobes and left upper lobe with straightening of the interventricular septum and increased RV to LV ratio concerning for right-sided heart strain. Hemodynamics have remained stable, patient has not required any vasopressor support. He did receive an initial 1 L fluid bolus in the ED. He is on 2 L/min nasal cannula. Cardiovascular service was consulted and is aware. Patient was started on high intensity heparin protocol. Patient denies any recent head trauma, epistaxis, hematemesis, melanotic stools, hematochezia. CBC is unremarkable, hemoglobin 16.7 g/dL. aPTT at baseline 21.3. CMP: Sodium 135, potassium 4.6, chloride 101, serum bicarb 18, BUN 24, creatinine 1.09, glucose 196. LFTs mildly elevated. Troponin 0.049. NT proBNP 1830. EKG showing a ventricular paced rhythm at 82 bpm. Negative for influenza, RSV, COVID. I am evaluating this patient in the emergency department, room 1. He is on 2 L/min nasal cannula, SpO2 is 98%. Nontachypneic. He is nondistressed. Blood pressure is currently hypertensive and 154/111 mmHg, heart rate is 80 beats per minutes, this is a submassive PE. Heparin is infusing per protocol. Progress note dated June 05, 2024. 73-year-old male seen in consultation. He has a history of multiple medical problems including diabetes, hypertension, pacemaker, and previous tobacco use. The patient has bilateral submassive pulmonary embolism. Today is postop day #1. 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 He continues on IV heparin. He is getting saline at 60 cc an hour. He is on 2 L by nasal cannula. The patient feels much improved. He denies any chest pain or shortness of breath. Current labs include a white count 8.1, hemoglobin 15, hematocrit 45.4, and a platelet count of 173,000. PTT of 60.8. Sodium 135, potassium 4.5, chlorides 103, CO2 26, BUN 17, creatinine 1.10. Glucose is 154. Calcium is 8.7. Objective - Vital Signs Vital signs: Vital Signs Temp 98.0 F 06/05/24 12:00 Pulse 53 L 06/05/24 12:00 Resp 15 06/05/24 12:00 BP 149/91 06/05/24 12:00 Pulse Ox 97 06/05/24 12:00 FiO2 Intake & Output 06/04/24 06/05/24 06/05/24 18:59 06:59 18:59 Intake Total 158.584 9892 519.841 Output Total 0 800 200 Balance 935.659 380 319.841 Weight 95.708 kg 104 kg Intake: IV 830 780 260 .9 NC PIVL 80 260 100 .9 NC shealths 520 160 Alteplase 6 mg In Sodium 200 Chloride 0.9% 144 ml @ 1 MG/HR 25 mls/hr IV .Q6H [facility] Rx#:[id number] Heparin Sod,Pork in 0.45% 20 NaCl 25,000 unit In 0.45 % NaCl 1 250ml.bag @ 2.5 mls/hr IV .Q24H [facility] Rx#: [id number] Sodium Chloride 0.9% 1, 280 000 ml @ 35 mls/hr IV . Q24H [facility] Rx#:[id number] Intake, IV Titration 105.659 259.841 Amount Heparin Sod,Pork in 0.45% 105.659 NaCl 25,000 unit In 0.45 % NaCl 1 250ml.bag @ 18 UNITS/KG/HR 17.227 mls/hr IV .[id number] [facility] Rx#: [id number] Heparin Sod,Pork in 0.45% 259.841 NaCl 25,000 unit In 0.45 % NaCl 1 250ml.bag @ 18 UNITS/KG/HR 17.227 mls/hr IV .[id number] [facility] Rx#: [id number] Oral 400 Output: Urine 0 800 200 Other: Voiding Method Urinal Urinal # Voids 0 - Exam No acute distress, oriented 3. The patient is currently on 2 L nasal cannula. HEENT examination is grossly unremarkable. Mucous membranes are moist. No oral lesions. Neck supple. Full range of motion. No adenopathy thyromegaly or neck vein distention. Cardiovascular examination reveals regular rhythm rate. S1-S2 normal. No S3 or S4. No discernible murmur noted. Lungs reveal clear breath sounds. Breath sounds are equal bilaterally. No adventitious lung sounds including wheezes rhonchi or crackles. Abdomen soft bowel sounds are heard. No masses or tenderness. Extremities are intact. No cyanosis clubbing or edema. Skin is without rash or lesion. Neurologic examination is brief but nonfocal. - Labs CBC & Chem 7: 06/05/24 05:36 06/05/24 05:36 Labs: Abnormal Lab Results - Last 24 Hours (Table) 06/04/24 06/04/24 06/04/24 Range/Units 15:09 15:18 21:38 APTT 35.0 H (22.0-30.0) sec Sodium (137-145) mmol/L Glucose (74-99) mg/dL POC Glucose (mg/dL) 126 H 147 H (70-110) mg/dL 06/05/24 06/05/24 06/05/24 Range/Units 00:59 05:36 05:36 APTT 52.4 H 60.8 H (22.0-30.0) sec Sodium 135 L (137-145) mmol/L Glucose 154 H (74-99) mg/dL POC Glucose (mg/dL) (70-110) mg/dL 06/05/24 06/05/24 Range/Units 06:20 11:49 APTT (22.0-30.0) sec Sodium (137-145) mmol/L Glucose (74-99) mg/dL POC Glucose (mg/dL) 156 H 154 H (70-110) mg/dL Assessment and Plan Assessment: Acute bilateral submassive pulmonary embolism, with right heart strain, S/P EKOS, June 04, 2024. Acute hypoxemic respiratory failure. History of diabetes mellitus. History of hypertension. History of hyperlipidemia. History of complete AV block, with subsequent pacemaker placement. Remote history of tobacco use. Plan: Progress note dated June 05, 2024. The patient is seen today in room 266. The patient is postoperative day #1, status post EKOS, for bilateral submassive pulmonary emboli, with right heart strain. Currently, the patient is on 2 L of oxygen. He continues on IV heparin, and saline at 60 cc an hour. Labs, x-rays, medications are reviewed. We will continue to follow the patient, make recommendations along the way. All labs, x-rays, and medications are reviewed. Time with Patient: Greater than 30
[2024-06-05 15:07] LABS: HCT 45.3 % (39.0-53.0); HGB 14.8 gm/dL (13.0-17.5); MCH 29.1 pg (25.0-35.0); MCHC 32.7 g/dL (31.0-37.0); MCV 89.1 fL (80.0-100.0); Platelet Count 177 k/uL (150-450); RBC 5.09 m/uL (4.30-5.90); RDW 12.9 % (11.5-15.5); WBC 8.1 k/uL (3.8-10.6)
[2024-06-05] MEDS: metFORMIN 500 MG TAB PO SCH (17:17)
[2024-06-05 18:06] VITALS: RESP 16
[2024-06-05 19:53] LABS: Glucose,Whole Blood 123 mg/dL (70-110)
[2024-06-06 05:52] LABS: Glucose,Whole Blood 128 mg/dL (70-110)
[2024-06-06 07:44] LABS: INR 1.2 (<1.2); Prothrombin Time 12.6 sec (10.0-12.5)
[2024-06-06 09:44] LABS: Chol/HDL Ratio 3.04 Ratio
[2024-06-06 11:24] LABS: Glucose,Whole Blood 112 mg/dL (70-110)
[2024-06-06 12:25] VITALS: BP 148/80; PULSE 59; TEMP 97.5
--- NOTE | 2024-06-06 13:12 | CA ---
Transthoracic Echo Report Name: Oliverio Miller Age: 73 Gender: M : 1950 Exam Date: 06/06/2024 10:03 Exam Location: [facility] Ht (in): 72 Wt (lb): 229 Ordering Physician: Rae Wiggins MD ([id number]) Attending/Referring Phys: Core Winding Operator Meeta Anders RDCS Procedure CPT: Indications: RV pressure Cardiac Hx: Limited for LVEF and RVSP Technical Quality: Fair Contrast 1: Total Dose (mL): Contrast 2: Total Dose (mL): MEASUREMENTS (Male / Female) Normal Values 2D ECHO LV Diastolic Diameter PLAX 4.1 cm 4.2 - 5.9 / 3.9 - 5.3 cm LV Systolic Diameter PLAX 2.9 cm IVS Diastolic Thickness 1.2 cm 0.6 - 1.0 / 0.6 - 0.9 cm LVPW Diastolic Thickness 1.3 cm 0.6 - 1.0 / 0.6 - 0.9 cm LV Relative Wall Thickness 0.6 LV Diastolic Volume MOD BP 95.6 cm??? 67 - 155 / 56 - 104 cm??? LV Systolic Volume MOD BP 41.2 cm??? 22 - 58 / 19 - 49 cm??? LV Ejection Fraction MOD BP 56.9 % >= 55 % LV Cardiac Index MOD BP 1289.1 cm???/min???m??? LV Diastolic Volume MOD 4C 91.2 cm??? LV Systolic Volume MOD 4C 39.5 cm??? LV Ejection Fraction MOD 4C 56.7 % LV Cardiac Index MOD 4C 1224.8 cm???/min???m??? LV Diastolic Length 4C 9.0 cm LV Systolic Length 4C 7.6 cm LV Diastolic Volume MOD 2C 94.3 cm??? LV Systolic Volume MOD 2C 38.8 cm??? LV Ejection Fraction MOD 2C 58.9 % LV Cardiac Index MOD 2C 1313.9 cm???/min???m??? LV Diastolic Length 2C 8.4 cm LV Systolic Length 2C 6.7 cm DOPPLER TR Peak Velocity 322.2 cm/s TR Peak Gradient 41.5 mmHg Right Ventricular Systolic Press 49.2 mmHg PV Peak Velocity 73.6 cm/s PV Peak Gradient 2.2 mmHg FINDINGS Left Ventricle Left ventricular ejection fraction is estimated at 55-60 %. Mildly increased septal wall thickness. Left ventricular cavity size normal. No obvious regional wall motion abnormalities. Right Ventricle Severe right ventricular dilatation with normal function. Moderate pulmonary hypertension. Right Atrium Catheter/pacemaker wire in the right atrial cavity. Left Atrium Mitral Valve Structurally normal mitral valve. Aortic Valve Aortic valve not well visualized. Tricuspid Valve Structurally normal tricuspid valve. No tricuspid stenosis. Mild tricuspid regurgitation. Pulmonic Valve Pulmonic valve not well visualized. No pulmonic stenosis. Mild pulmonic regurgitation. Pericardium No pericardial effusion. Aorta Aortic root and proximal ascending aorta not well visualized. CONCLUSIONS Normal LV systolic function Moderate pulmonary hypertension Mild tricuspid regurgitation No pericardial effusion Previewed by: Dr. Fracisco Jacobo MD (Electronically Signed) Final Date: 06 June 2024 13:11
--- NOTE | 2024-06-06 14:04 | P.PN ---
Subjective Progress Note Date: 06/06/24 Principal diagnosis: Pulmonary embolism. Patient is a 73-year-old male with past medical history segment for diabetes mellitus, hypertension, pacemaker, and remote history of tobacco smoking. Pulmonary consult was placed for bilateral submassive PE. Patient denies any personal or familial history of previous blood clots. Denies prolonged air or car travel, denies recent hospitalizations or immobilization, denies recent trauma, denies recent surgery. Denies unilateral lower extremity swelling. Patient states that he is normally very active, walks approximately 3-1/2 miles yesterday. He was doing well and having no symptoms. Yesterday evening developed severe respiratory distress which was acute and sudden when ambulating to the bathroom. Never completely recovered. Associated with diaphoresis and lightheadedness. Reportedly had a near syncopal event while sitting on the couch. Denies losing consciousness. Denies chest pain or hemoptysis. Similar episode reported several weeks ago. Chest CTA done in the emergency department showing large saddle pulmonary embolism extending into the bilateral lower lobes and left upper lobe with straightening of the interventricular septum and increased RV to LV ratio concerning for right-sided heart strain. Hemodynamics have remained stable, patient has not required any vasopressor support. He did receive an initial 1 L fluid bolus in the ED. He is on 2 L/min nasal cannula. Cardiovascular service was consulted and is aware. Patient was started on high intensity heparin protocol. Patient denies any recent head trauma, epistaxis, hematemesis, melanotic stools, hematochezia. CBC is unremarkable, hemoglobin 16.7 g/dL. aPTT at baseline 21.3. CMP: Sodium 135, potassium 4.6, chloride 101, serum bicarb 18, BUN 24, creatinine 1.09, glucose 196. LFTs mildly elevated. Troponin 0.049. NT proBNP 1830. EKG showing a ventricular paced rhythm at 82 bpm. Negative for influenza, RSV, COVID. I am evaluating this patient in the emergency department, room 1. He is on 2 L/min nasal cannula, SpO2 is 98%. Nontachypneic. He is nondistressed. Blood pressure is currently hypertensive and 154/111 mmHg, heart rate is 80 beats per minutes, this is a submassive PE. Heparin is infusing per protocol. Progress note dated June 05, 2024. 73-year-old male seen in consultation. He has a history of multiple medical problems including diabetes, hypertension, pacemaker, and previous tobacco use. The patient has bilateral submassive pulmonary embolism. Today is postop day #1. 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 He continues on IV heparin. He is getting saline at 60 cc an hour. He is on 2 L by nasal cannula. The patient feels much improved. He denies any chest pain or shortness of breath. Current labs include a white count 8.1, hemoglobin 15, hematocrit 45.4, and a platelet count of 173,000. PTT of 60.8. Sodium 135, potassium 4.5, chlorides 103, CO2 26, BUN 17, creatinine 1.10. Glucose is 154. Calcium is 8.7. Progress note dated June 06, 2024. 73-year-old male seen today in room 377. The patient is resting comfortably in bed. His is in the room. He is on room air. No IV fluids. The patient is hoping to be discharged sometime later today if possible. The patient denies any shortness of breath, cough, wheezing, chest tightness, or phlegm production. The patient was admitted with a diagnosis of pulmonary embolism. The patient is postoperative day #2, status post EKOS. Labs today include a PT of 12.6, and an INR of 1.2. Glucose is 112. Objective - Vital Signs Vital signs: Vital Signs Temp 97.5 F L 06/06/24 12:00 Pulse 59 L 06/06/24 12:00 Resp 16 06/06/24 12:00 BP 148/80 06/06/24 12:00 Pulse Ox 93 L 06/06/24 12:00 FiO2 Intake & Output 06/05/24 06/06/24 06/06/24 18:59 06:59 18:59 Intake Total 539.841 380 Output Total 200 Balance 339.841 380 Weight 104.2 kg Intake: IV 280 20 .9 NC PIVL 120 .9 NC shealths 160 Invasive Line 1 10 Invasive Line 2 10 Intake, IV Titration 259.841 Amount Heparin Sod,Pork in 0.45% 259.841 NaCl 25,000 unit In 0.45 % NaCl 1 250ml.bag @ 18 UNITS/KG/HR 17.227 mls/hr IV .[id number] [facility] Rx#: [id number] Oral 360 Output: Urine 200 Other: Voiding Method Toilet Toilet Urinal Urinal # Voids 1 1 1 # Bowel Movements 1 - Exam No acute distress, oriented 3. The patient is currently on room air. HEENT examination is grossly unremarkable. Mucous membranes are moist. No oral lesions. Neck supple. Full range of motion. No adenopathy thyromegaly or neck vein distention. Cardiovascular examination reveals regular rhythm rate. S1-S2 normal. No S3 or S4. No discernible murmur noted. Lungs reveal clear breath sounds. Breath sounds are equal bilaterally. No adventitious lung sounds including wheezes rhonchi or crackles. Abdomen soft bowel sounds are heard. No masses or tenderness. Extremities are intact. No cyanosis clubbing or edema. Skin is without rash or lesion. Neurologic examination is brief but nonfocal. - Labs CBC & Chem 7: 06/05/24 14:56 06/05/24 05:36 Labs: Abnormal Lab Results - Last 24 Hours (Table) 06/05/24 06/05/24 06/06/24 Range/Units 05:36 19:52 05:44 PT (10.0-12.5) sec INR (<1.2) POC Glucose (mg/dL) 123 H 128 H (70-110) mg/dL Hemoglobin A1c 7.3 H (<=6.0) % 06/06/24 06/06/24 Range/Units 06:45 11:23 PT 12.6 H (10.0-12.5) sec INR 1.2 H (<1.2) POC Glucose (mg/dL) 112 H (70-110) mg/dL Hemoglobin A1c (<=6.0) % Assessment and Plan Assessment: Acute bilateral submassive pulmonary embolism, with right heart strain, S/P EKOS, June 04, 2024. Acute hypoxemic respiratory failure. History of diabetes mellitus. History of hypertension. History of hyperlipidemia. History of complete AV block, with subsequent pacemaker placement. Remote history of tobacco use. Plan: Progress note dated June 05, 2024. The patient is seen today in room 266. The patient is postoperative day #1, status post EKOS, for bilateral submassive pulmonary emboli, with right heart strain. Currently, the patient is on 2 L of oxygen. He continues on IV heparin, and saline at 60 cc an hour. Labs, x-rays, medications are reviewed. We will continue to follow the patient, make recommendations along the way. All labs, x-rays, and medications are reviewed. Progress note dated June 06, 2024. The patient is seen today in room 377. His is sitting at the bedside. The patient is on room air. No IV fluids. The patient is hoping to be discharged. Labs, x-rays, and medications are reviewed. We will continue to follow the shalini ent. The patient will see me in the office in a couple of weeks. No additional recommendations are made. The patient had an unprovoked pulmonary embolism, should be treated for at least 6 months, and 1 could argue a bit longer, given the significance of his clot burden. Time with Patient: Less than 30
--- NOTE | 2024-06-06 14:11 | P.PN ---
Subjective Progress Note Date: 06/06/24 History of Present Illness: The patient is a 73-year-old male with no prior history of significant CAD, fo llowed by Dr. Bonilla, status post permanent pacemaker implantation who presented with an acute episode of dyspnea on exertion, occurred yesterday, sudden not associated with dizziness or syncope but he felt diaphoretic. His symptoms persisted on and off and he subsequently came into the emergency room and was found to have evidence of pulmonary embolism. The patient is active physically, walks on a daily basis, had no recent travel or surgery. He had no recent trauma. He had minimal dyspnea few weeks ago that was transient but has not affected his physical activity. He was in sinus mechanism on presentation with no evidence of malignant arrhythmia. His CAT scan showed large bilateral lower lobe pulmonary embolism with mild right heart strain. His duplex scan of the lower extremities showed no evidence of DVT. He was started on IV heparin and feels better at this time. He underwent cardiac catheterization March 2023 and had no evidence of obstructive CAD. He has a history of diabetes, hyperlipidemia and hypertension. He is a non-smoker. He stopped in 1997. Medications: Metformin 500 mg daily, simvastatin 40 mg daily, metoprolol succinate 50 mg daily, losartan 50 mg daily, aspirin Progress note 06/05/2024 Patient is seen and examined at bedside this a.m. He had a EKOS procedure done yesterday with completion of protocol last night. Currently is on IV heparin drip. He has sheath in place with no complications of bleeding. He is hemodynamically stable otherwise. BP 140 systolic, 80 diastolic. Labs: Hb 15, creatinine 1.1 EKG: sinus rhythm with ventricularly paced rhythm. 06/06/24 Patient seen and examined. Patient states he has been up to the bathroom and his breathing is normal. He denies chest pain. No palpitations. He is on Eliquis VTE protocol and is agreeable to cost. Limited echocardiogram repeat was done which revealed normal LV systolic function, moderate pulmonary hypertension, mild tricuspid regurgitation, no pericardial effusion. Physical Examination: 73-year-old male, alert oriented no apparent distress,Blood pressure 138/94, Heart rate 68 Head: Normocephalic. Eyes: Sclerae nonicteric. Neck: Good carotid upstroke, no bruit, no jugular venous distention. Lungs: Clear to auscultation. Heart: Regular rate and rhythm, S1-S2, no S3, no rub. No murmur. Abdomen: Soft nontender, positive bowel sounds no organomegaly. Extremities: No edema, intact distal pulses. Impression: Submassive bilateral pulm embolism with high clot burden. Borderline RV LV ratio on CT scan. Likely unprovoked Status post permanent pacemaker implantation in 2022 for complete heart block. 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 Continue atorvastatin, metoprolol succinate 50 mg daily, losartan 50 mg daily for blood pressure control and microvascular disease, Farxiga 10 mg daily for diabetes control and some reported benefit with microvascular disease. Patient is cleared for discharge from cardiology and may follow-up with Dr. Bonilla in 1 week. Nurse practitioner note has been reviewed, I agree with documented findings and plan of care. Patient was seen and examined. Objective - Vital Signs Vital signs: Vital Signs Temp 98.4 F 06/05/24 20:20 Pulse 56 L 06/06/24 04:00 Resp 16 06/06/24 04:00 BP 125/65 06/06/24 04:00 Pulse Ox 92 L 06/06/24 07:34 FiO2 Intake & Output 06/05/24 06/06/24 06/06/24 18:59 06:59 18:59 Intake Total 539.841 180 Output Total 200 Balance 339.841 180 Weight 104.2 kg Intake: IV 280 .9 NC PIVL 120 .9 NC shealths 160 Intake, IV Titration 259.841 Amount Heparin Sod,Pork in 0.45% 259.841 NaCl 25,000 unit In 0.45 % NaCl 1 250ml.bag @ 18 UNITS/KG/HR 17.227 mls/hr IV .[id number] [facility] Rx#: [id number] Oral 180 Output: Urine 200 Other: Voiding Method Toilet Toilet Urinal Urinal # Voids 1 1 # Bowel Movements 1 - Labs CBC & Chem 7: 06/05/24 14:56 06/05/24 05:36 Labs: Abnormal Lab Results - Last 24 Hours (Table) 06/05/24 06/05/24 06/05/24 Range/Units 05:36 11:49 19:52 PT (10.0-12.5) sec INR (<1.2) POC Glucose (mg/dL) 154 H 123 H (70-110) mg/dL Hemoglobin A1c 7.3 H (<=6.0) % 06/06/24 06/06/24 Range/Units 05:44 06:45 PT 12.6 H (10.0-12.5) sec INR 1.2 H (<1.2) POC Glucose (mg/dL) 128 H (70-110) mg/dL Hemoglobin A1c (<=6.0) %
--- NOTE | 2024-06-06 23:08 | P.DS ---
Providers Date of admission: 06/04/24 00:26 Attending physician: Catrachito Kennedy MD Consults: 06/04/24 00:22 Consult Physician Urgent Consulting Provider: Fracisco Jacobo Consult Reason/Comments: Bilateral Pulmonary emboli Do you want consulting provider notified?: Already Contacted 06/04/24 00:23 Consult Physician Stat Consulting Provider: Jules Jacob Consult Reason/Comments: Pulmonary emboli Do you want consulting provider notified?: Already Contacted Primary care physician: [facility] Course: Diagnoses: -Acute bilateral lower lobe pulmonary embolism with elevated troponin secondary to right hand to trend from his PE, status post EKOS catheter placement and tPA infusion severe pulmonary hypertension and moderate to severe tricuspid regurgitation and dilated right ventricl Near syncope secondary to his acute pulmonary embolism Hypertension Diabetes mellitus Obstructive sleep apnea Status post pacemaker Hospital course: This is a pleasant 73 years old male with past medical history of multiple medical problems including hypertension and diabetes Presents because of near syncope, he was found to be little bit hypoxic at home. Patient also has been complaining from exertional dyspnea over several weeks duration. However he is not dyspneic or tachypneic at rest. On admission patient was found to have large bilateral lower lobe pulmonary emboli and he was admitted with heparin drip started with close monitoring Patient was evaluated by both speeder hand and pulmonary service Patient showed interval improvement and on the day of discharge she denies chest pain or dyspnea or any other new complaint, no dizziness or syncope. Patient was eager to go home today Patient was cleared for discharge by both cardiology and pulmonary service. Patient will be discharged on Eliquis with loading dose of 10 mg x 7 days followed by 5 mg thereafter. Patient informs with this recommendation and he agrees, at bedside also she is acceptable to this plan. Patient turns out he does not have coverage for drug, his co-pay for Eliquis prescription is almost $1000. Coupon is provided for 1 month of the free Eliquis I talked to the bedside nurse Chastity and she confirms to me Eliquis has delivered at bedside prior to discharge. I talked to the patient to follow-up with his doctor to find alternative for Eliquis and he agrees. But until then he is covered. I also explained for the patient the risk of nonadherence to anticoagulation including but not limited to the risk of recurrent pulmonary embolism and/or and he verbalized understanding and acceptance. Also bedside nurse told me his co-pay for Farxiga recommended by speeder hand is almost $500, he is can be followed up as an outpatient to be addressed as it is not an emergency. Other than that patient clinically stable for discharge Problems and management plan were discussed with the patient and he verbalized understanding and acceptance Patient was found stable and can be discharged home in guarded prognosis however he needs follow-up as an outpatient. Patient was instructed to follow up with PCP Dr. Sales and his ESTHETICIAN SPA Penny within one week and patient agrees Patient was elected to follow-up with Dr. Bonilla speeder hand in 1 to 2 [address]itter up Dr[address] Jacob in 1 to 2 weeks and he agrees Physical exam Gen: patient is a AAOx3, no distress CVS: S1-S2, RRR, no murmur Lungs: B/L CTA, no wheezing Abdomen: soft, no distention, no tenderness, positive bowel sounds Extremity: no leg edema or induration Time spent more than 35 minutes Patient Condition at Discharge: Stable Plan - Discharge Summary Discharge Rx Participant: No New Discharge Prescriptions: New Apixaban [Eliquis] 5 mg PO DIRECTED #80 tab Famotidine [Pepcid] 20 mg PO BID #60 tab Dapagliflozin Propanediol [Farxiga] 10 mg PO DAILY #30 tab Continue Losartan [Cozaar] 50 mg PO HS Simvastatin [Zocor] 40 mg PO HS Glucos Sul 2Kcl/MSM/Chond/C/Mn [Glucosamine Chondroitin Cap] 2 cap PO DAILY Sildenafil Citrate [Viagra] 100 mg PO DIRECTED PRN PRN Reason: SEXUAL ACTIVITY Senior Probiotic 1 tab PO HS Kilgore-3 1040mg 1,040 mg PO DAILY metFORMIN HCL ER [Glucophage XR] 500 mg PO HS Multivit-Mins/Iron/Folic/Lycop [Centrum Men's Tablet] 1 tab PO HS Magnesium Citrate Gummies 300 mg PO HS Berberine 600 mg PO DAILY Metoprolol Succinate (ER) [Toprol XL] 50 mg PO DAILY #90 tab No Action Aspirin 81 mg PO DAILY tab Discharge Medication List Glucos Sul 2Kcl/MSM/Chond/C/Mn [Glucosamine Chondroitin Cap] 2 cap PO DAILY 03/11/19 [History] Losartan [Cozaar] 50 mg PO HS 03/11/19 [History] Simvastatin [Zocor] 40 mg PO HS 03/11/19 [History] Berberine 600 mg PO DAILY 03/15/23 [History] Magnesium Citrate Gummies 300 mg PO HS 03/15/23 [History] Multivit-Mins/Iron/Folic/Lycop [Centrum Men's Tablet] 1 tab PO HS 03/15/23 [History] Senior Probiotic 1 tab PO HS 03/15/23 [History] Sildenafil Citrate [Viagra] 100 mg PO DIRECTED PRN 03/15/23 [History] metFORMIN HCL ER [Glucophage XR] 500 mg PO HS 03/15/23 [History] Aspirin 81 mg PO DAILY tab 03/17/23 [Rx] Metoprolol Succinate (ER) [Toprol XL] 50 mg PO DAILY #90 tab 03/21/23 [Rx] Kilgore-3 1040mg 1,040 mg PO DAILY 06/03/24 [History] Apixaban [Eliquis] 5 mg PO DIRECTED #80 tab 06/06/24 [Rx] Dapagliflozin Propanediol [Farxiga] 10 mg PO DAILY #30 tab 06/06/24 [Rx] Famotidine [Pepcid] 20 mg PO BID #60 tab 06/06/24 [Rx] Follow up Appointment(s)/Referral(s): Chance Bonilla MD [Medical Doctor] - 2 Weeks (please call to book appointment) Oliverio Trejo MD [Primary Care Provider] - 1-2 days (please call to make appointment) Jules Jacob DO [Doctor of Osteopathic Medicine] - 06/20/24 1:45 pm Activity/Diet/Wound Care/Special Instructions: heart healthy diet activity is restricted till you see your doctor Discharge Disposition: HOME SELF-CARE
== END 2024-06-06 15:01 | disposition home or self-care (01) | DRG 173 ==
LOC: EC 20:17 → 2SICU 06-04 00:26 → 3SCARD 06-04 07:16 → 2SICU 06-04 13:55 → 3SCARD 06-05 17:41
PROVIDERS: ADMIT Internal Medicine; ATTEND Internal Medicine
PROC: 3E06317 Introduction of Other Thrombolytic into Central Artery, Percutaneous Approach (ICD-10-PCS; 2024-06-04)
PROC: 02FR3Z0 Fragmentation of Left Pulmonary Artery, Percutaneous Approach, Ultrasonic (ICD-10-PCS; principal; 2024-06-04 15:00)
DX: I26.92 Saddle embolus of pulmonary artery without acute cor pulmonale (principal); J96.01 Acute respiratory failure with hypoxia; E11.9 Type 2 diabetes mellitus without complications; E66.9 Obesity, unspecified; Z68.31 Body mass index [BMI] 31.0-31.9, adult; E78.5 Hyperlipidemia, unspecified; G47.33 Obstructive sleep apnea (adult) (pediatric); I07.1 Rheumatic tricuspid insufficiency; I27.20 Pulmonary hypertension, unspecified; I25.10 Atherosclerotic heart disease of native coronary artery without angina pectoris; I10 Essential (primary) hypertension; Z79.82 Long term (current) use of aspirin; Z79.84 Long term (current) use of oral hypoglycemic drugs; Z85.828 Personal history of other malignant neoplasm of skin; Z87.891 Personal history of nicotine dependence; Z95.0 Presence of cardiac pacemaker; Z11.52 Encounter for screening for COVID-19
CPT/HCPCS: 36415; 71275; 80048; 80053; 80061; 83036; 83735; 83880; 84484; 85025; 85027; 85384; 85610; 85730; 87636; 93005; 93306; 93308; 93970; 94760; 96361; 96365; 96366; 96375; 99285

== ENCOUNTER → 2024-07-08 | Outpatient (CLI) | payer MEDICARE ==
[2024-07-08 16:53] LABS: HCT 49.6 % (39.6-50.0); HGB 16.1 g/dL (13.0-17.0); MCH 28.8 pg (27.0-32.0); MCHC 32.5 g/dL (32.0-37.0); MCV 88.6 FL (80.0-97.0); Mean Platelet Volume 10.6 FL (9.5-12.2); NRBC Per 100 WBC 0 X 10*3/uL (0.00-0.01); Platelet Count 254 X 10*3/uL (140-440); RDW 13.1 % (11.5-14.5); WBC 7.22 X 10*3/uL (4.50-10.00)
[2024-07-08 19:13] LABS: NT-Pro-B-Type Natriuretic Pept 197 pg/mL (0-450)
[2024-07-09 00:32] LABS: ALT 30 U/L (10-49); AST 22 U/L (14-35); Albumin 4.2 g/dL (3.8-4.9); Albumin/Globulin Ratio 1.83 Ratio (1.60-3.17); Alkaline Phosphatase 73 U/L (41-126); BUN/Creat Ratio 11.09 Ratio (12.00-20.00); Blood Urea Nitrogen 12.2 mg/dL (9.0-27.0); Calcium 9.7 mg/dL (8.7-10.3); Carbon Dioxide 18.1 mmol/L (21.6-31.8); Chloride 102 mmol/L (96-109); Globulin 2.3 g/dL (1.6-3.3); Glucose 126 mg/dL (70-110); LDL Cholesterol,Calculated 74.1 mg/dL (0.0-131.0); Potassium 4.6 mmol/L (3.5-5.5); Sodium 140 mmol/L (135-145); Total Bilirubin 0.5 mg/dL (0.3-1.2); Total Protein 6.5 g/dL (6.2-8.2)
== END | disposition home or self-care (01) ==
LOC: LABWHC1 09:10
PROVIDERS: ATTEND Student in an Organized Health Care Education/Training Program
DX: Z13.6 Encounter for screening for cardiovascular disorders (principal); I50.9 Heart failure, unspecified; D72.9 Disorder of white blood cells, unspecified; E11.9 Type 2 diabetes mellitus without complications; E78.5 Hyperlipidemia, unspecified; E03.9 Hypothyroidism, unspecified; R79.89 Other specified abnormal findings of blood chemistry
CPT/HCPCS: 36415; 80053; 80061; 83036; 83880; 84443; 85027

== ENCOUNTER → 2024-08-22 | Outpatient (CLI) | payer MEDICARE ==
[2024-08-22 10:15] LABS: African American GFR (CKD) 79 (>60 ml/min/1.73 sqM); Blood Urea Nitrogen 17 mg/dL (9-20); Non-African American GFR(CKD) 68 (>60 ml/min/1.73 sqM)
--- NOTE | 2024-08-22 10:48 | CT ---
EXAMINATION TYPE: CT angio chest DATE OF EXAM: 08/22/2024 10:41 AM COMPARISON: 06/03/2024 CLINICAL INDICATION: Male, 74 years old with history of I26.99 OTHER PULMONARY EMBOLISM WITHOUT ACUTE COR, Hx of PE back in May, follow up., TECHNIQUE: Axial CT was performed with sagittal and coronal reformats. 3D reconstruction and/or MIP imaging was also performed on a separate workstation. IV CONTRAST: with IV Contrast, patient injected with 100 ml mL of Isovue 370. (None if empty) CT DLP: 445.10 mGycm, Automated exposure control for dose reduction was used. FINDINGS: PULMONARY ARTERIES: The pulmonary arteries and their major tributaries are patent. I do not see tish dence for sizable filling defect to suggest pulmonary embolic process. LUNGS: The lungs are clear and free of infiltrate. No evidence for atelectasis. No pulmonary nodule or mass is detected. No pleural effusion. MEDIASTINUM: Thoracic aorta is of normal caliber.No evidence for mediastinal mass. No mediastinal l ymph nodes greater than 1cm. HEART: Size within normal limits. No significant coronary artery calcifications. HILAR STRUCTURES: No evidence for mass. No hilar lymph nodes greater than 1 cm. UPPER ABDOMEN: No significant abnormality is seen. IMPRESSION: 1. No evidence for Pulmonary embolism at this time. [facility], , 08/22/2024 10:45 AM
== END | disposition home or self-care (01) ==
LOC: RADCTMAIN 09:32
PROVIDERS: ATTEND Internal Medicine Critical Care Medicine
DX: I26.99 Other pulmonary embolism without acute cor pulmonale (principal)
CPT/HCPCS: 82565; 84520; 71275; 36415; Q9967

== ENCOUNTER → 2024-09-12 | Outpatient (CLI) | payer MEDICARE ==
[2024-09-12 15:37] LABS: ALT 31 U/L (10-49); AST 23 U/L (14-35); Albumin 4.1 g/dL (3.8-4.9); Albumin/Globulin Ratio 1.71 Ratio (1.60-3.17); Alkaline Phosphatase 79 U/L (41-126); BUN/Creat Ratio 12.64 Ratio (12.00-20.00); Blood Urea Nitrogen 13.9 mg/dL (9.0-27.0); Calcium 9.6 mg/dL (8.7-10.3); Carbon Dioxide 26.2 mmol/L (21.6-31.8); Chloride 105 mmol/L (96-109); Chol/HDL Ratio 2.95 Ratio; Globulin 2.4 g/dL (1.6-3.3); Glucose 165 mg/dL (70-110); LDL Cholesterol,Calculated 75.3 mg/dL (0.0-131.0); Potassium 4.5 mmol/L (3.5-5.5); Sodium 140 mmol/L (135-145); Total Bilirubin 0.5 mg/dL (0.3-1.2); Total Protein 6.5 g/dL (6.2-8.2)
== END | disposition home or self-care (01) ==
LOC: LABWHC1 07:37
PROVIDERS: ATTEND Nurse Practitioner Family
DX: Z12.5 Encounter for screening for malignant neoplasm of prostate (principal); E11.9 Type 2 diabetes mellitus without complications; E78.00 Pure hypercholesterolemia, unspecified
CPT/HCPCS: 80061; 80053; 82043; 82570; 83036; 36415; G0103

== ENCOUNTER → 2024-09-24 | Outpatient (CLI) | payer MEDICARE ==
--- NOTE | 2024-09-24 07:53 | US ---
EXAMINATION TYPE: US carotid duplex BILAT DATE OF EXAM: 09/24/2024 COMPARISON: Carotid ultrasound 11/13/2020 CLINICAL INDICATION: Male, 74 years old with history of R42 POSTURAL DIZZINESS I65.21 STENOSIS OF R C AROT; stenosis Additional History: .... TECHNIQUE: Grayscale, color Doppler and spectral Doppler evaluation of the bilateral carotid systems and vertebral arteries. Indirect Doppler criteria was utilized. FINDINGS: EXAM MEASUREMENTS: RIGHT: Peak Systolic Velocity (PSV) cm/sec ----- Right CCA: 79.7 ----- Right ICA: 82.5 ----- Right ECA: 112 ICA/CCA ratio: 1.0 RIGHT: End Diastole cm/sec ----- Right CCA: 13.6 ----- Right ICA: 19.9 ----- Right ECA: 10.9 LEFT: Peak Systolic Velocity (PSV) cm/sec ----- Left CCA: 106 ----- Left ICA: 76.1 ----- Left ECA: 155 ICA/CCA ratio: .7 LEFT: End Diastole cm/sec ----- Left CCA: 19.9 ----- Left ICA: 21.7 ----- Left ECA: 9.18 VERTEBRALS (direction of flow): Right Vertebral: Antegrade Left Vertebral: Antegrade Rhythm: Normal CASE REPAIRER NOTES: No significant stenosis seen Color Doppler imaging shows patency with blood flow throughout the carotid artery. Spectral waveforms are within normal limits. IMPRESSION: Right: No hemodynamically significant stenosis. Left: No hemodynamically significant stenosis. Criteria for Assigning % of Stenosis / Diameter reduction (Estimation based on the indirect measurements of the internal carotid artery velocities (ICA PSV). 1. Normal (no stenosis)=ICA PSV < 180 cm/s: ratio < 2.0: ICA EDV<40 cm/s. 2. Less than 50% stenosis=ICA PSV < 180 cm/s: ratio < 2.0: ICA EDV<40 cm/s. 3. 50 to 69% stenosis=ICA PSV of 180 to 230 cm/s: ration 2.0 ? 4.0: ICA EDV 40-100 cm/s. PSV 125-180 cm/sec and ICA/CCA PSV Ratio ? 2.0 is also consistent with 50-69% stenosis 4. Greater than 70% stenosis to near occlusion= ICA PSV > 230 cm/s: ratio > 4.0: ICA EDV > 100 cm/s. 5. Near occlusion= ICA PSV velocities may be low or undetectable: variable ratio and ICA EDV. 6. Total occlusion=unable to detect flow. [facility], , 09/24/2024 7:51 AM
== END | disposition home or self-care (01) ==
LOC: RADUSWWP 07:20
PROVIDERS: ATTEND Student in an Organized Health Care Education/Training Program
DX: I65.21 Occlusion and stenosis of right carotid artery (principal); R42 Dizziness and giddiness
CPT/HCPCS: 93880